=== PATIENT | male | born 1950 | race Caucasian/White ===

== ENCOUNTER 2017-02-11 09:50 | Emergency (ER) | payer OTHER ==
[~2017-02-11] VITALS: Ht 190.5 cm; Wt 91.8 kg
[2017-02-11 09:52] VITALS: TEMP 36.5; Ht 190.5 cm; Wt 91.8 kg
[2017-02-11] MEDS ORDERED: ASPIRIN 81 MG CHEW PO STA (10:23)
--- NOTE | 2017-02-11 10:33 | EMERGENCY ROOM VISIT NOTE ---
History Report prepared by Alicia: Cj Smith Under the Supervision of: Dr. Kurtis Calderón D.O. First contact with patient: 09:59 Chief Complaint: CHEST PAIN Stated Complaint: CHEST PAIN Nursing Triage Summary: When I sleep I have chest pain and dull aches on the left side x1 week. Right shoulder surgery on . History of Present Illness The patient is a 67 year old male who presents to the Emergency Room with complaints of intermittent chest pain beginning one week ago. His most recent episode of pain began at 2am last night. The patient describes the pain as a "dull ache" in the chest area that has worsened since he got shoulder surgery on February 06. Patient states that pain causes him to have to sleep in one position at night. Patient states the pain is relieved within 30 minutes of sitting up. Patient has an associated symptom of constipation. He was able to pass a bowel movement prior to arrival. Patient denies any arm pain, SOB, fever , sweating, nausea, vomiting, runny nose, abdominal pain, or painful urination. In addition, patient adds that he gets a "pinprick" pain in his chest when he goes jogging but said that that pain is different than the pain he is currently experiencing. Patient states he has always felt this pain when jogging for "a long time". Patient has not jogged since surgery. Patient has a history of mitral valve prolapse, and denies a history of diabetes, high cholesterol, or heart disease. Source of History: patient Onset: 1 week ago Position: chest Quality: ache (dull) Timing: intermittent Modifying Factors (Worsening): other (Laying down) Modifying Factors (Relieving): elevation (Sitting up) Associated Symptoms: + chest pain (Pin, prick when jogging), No fevers, No SOB, No nausea, No vomiting, No abdominal pain, No urinary symptoms Review of Systems See HPI for pertinent positives & negatives. A total of 10 systems reviewed and were otherwise negative. Past Medical & Surgical Medical Problems: (1) Mitral valve prolapse Family History No pertinent family medical history. Social History Smoking Status: Never Smoker Marital Status: Housing Status: lives with family Current/Historical Medications Scheduled Famotidine (Pepcid), 20 MG PO DAILY Scheduled PRN Ranitidine Hcl (Zantac), 150 MG PO DAILY PRN for acid reflux Allergies Coded Allergies: No Known Allergies (Unverified , 02/11/17) Physical Exam Vital Signs Date Time Temp Pulse Resp B/P (MAP) Pulse Ox O2 Delivery O2 Flow Rate FiO2 02/11/17 13:09 77 18 142/84 97 02/11/17 11:16 50 18 158/96 97 Room Air 02/11/17 10:18 53 02/11/17 09:52 36.5 57 18 149/97 98 Room Air Physical Exam GENERAL: Sitting up in bed, alert, well appearing, well nourished, no distress, non-toxic EYE EXAM: normal conjunctiva. OROPHARYNX: no exudate, no erythema, lips, buccal mucosa, and tongue normal and mucous membranes are moist NECK: supple, no nuchal rigidity, no adenopathy, non-tender LUNGS: Clear to auscultation. Normal chest wall mechanics HEART: no murmurs, S1 normal and S2 normal ABDOMEN: abdomen soft, non-tender, normo-active bowel sounds, no masses, no rebound or guarding. BACK: Back is symmetrical on inspection and there is no deformity, no midline tenderness, no CVA tenderness. SKIN: no rashes and no bruising UPPER EXTREMITIES: upper extremities are grossly normal. Good radial pulses bilaterally. LOWER EXTREMITIES: Calfs equal bilateral. No pitting edema. NEURO EXAM: Normal sensorium, cranial nerves II-XII grossly intact, normal speech, no gross weakness of arms, no gross weakness of legs. Medical Decision & Procedures ER Provider Diagnostic Interpretation: Radiology results as stated below per my review and the radiologist's interpretation: CHEST ONE VIEW PORTABLE CLINICAL HISTORY: Atypical chest pain COMPARISON STUDY: No previous studies for comparison. FINDINGS: The cardiac and mediastinal contours are normal. There is no evidence of focal pulmonary consolidation. There is no evidence of failure. No pleural effusions are visualized.[ IMPRESSION: No active disease in the chest. Electronically signed by: Tao Mckinney M.D. 02/11/2017 10:30 AM Laboratory Results 02/11/17 10:15 Red Blood Count 4.77, Mean Corpuscular Volume 85.7, Mean Corpuscular Hemoglobin 29.4, Mean Corpuscular Hemoglobin Concent 34.2, Mean Platelet Volume 10.5, Neutrophils (%) (Auto) 67.2, Lymphocytes (%) (Auto) 21.2, Monocytes (%) (Auto) 7.6, Eosinophils (%) (Auto) 3.4, Basophils (%) (Auto) 0.3, Neutrophils # (Auto) 5.32, Lymphocytes # (Auto) 1.68, Monocytes # (Auto) 0.60, Eosinophils # (Auto) 0.27, Basophils # (Auto) 0.02 02/11/17 10:15 Test 02/11/17 10:15 White Blood Count 7.91 K/uL (4.8-10.8) Red Blood Count 4.77 M/uL (4.7-6.1) Hemoglobin 14.0 g/dL (14.0-18.0) Hematocrit 40.9 % (42-52) Mean Corpuscular Volume 85.7 fL (80-100) Mean Corpuscular Hemoglobin 29.4 pg (25-34) Mean Corpuscular Hemoglobin Concent 34.2 g/dl (32-36) Platelet Count 174 K/uL (130-400) Mean Platelet Volume 10.5 fL (7.4-10.4) Neutrophils (%) (Auto) 67.2 % Lymphocytes (%) (Auto) 21.2 % Monocytes (%) (Auto) 7.6 % Eosinophils (%) (Auto) 3.4 % Basophils (%) (Auto) 0.3 % Neutrophils # (Auto) 5.32 K/uL (1.4-6.5) Lymphocytes # (Auto) 1.68 K/uL (1.2-3.4) Monocytes # (Auto) 0.60 K/uL (0.11-0.59) Eosinophils # (Auto) 0.27 K/uL (0-0.5) Basophils # (Auto) 0.02 K/uL (0-0.2) RDW Standard Deviation 40.8 fL (36.4-46.3) RDW Coefficient of Variation 13.0 % (11.5-14.5) Immature Granulocyte % (Auto) 0.3 % Immature Granulocyte # (Auto) 0.02 K/uL (0.00-0.02) Anion Gap 3.0 mmol/L (3-11) Est Creatinine Clear Calc Drug Dose 76.5 ml/min Estimated GFR () 78.4 Estimated GFR (Non- 67.6 BUN/Creatinine Ratio 16.3 (10-20) Calcium Level 8.8 mg/dl (8.5-10.1) Total Creatine Kinase 70 U/L (39-308) Creatine Kinase MB 0.9 ng/ml (0.5-3.6) Creatine Kinase MB Ratio 1.3 (0-3.0) Troponin I < 0.015 ng/ml (0-0.045) Laboratory results per my review. Medications Administered Medications (Trade) Dose Ordered Sig/Renee Route Start Time Stop Time Status Last Admin Dose Admin Aspirin (Aspirin Chew) 324 mg NOW STAT PO 02/11/17 10:23 02/11/17 10:24 DC 02/11/17 11:19 324 MG ECG Indication: chest pain Rate (beats per minute): 48 Rhythm: sinus bradycardia Findings: nonspecific-ST abn (Lateral), T-wave inversion (Inferior), other ( Normal axis. ) Comparison ECG Date: no prior available ED Course ED COURSE: Vital signs were reviewed and showed mild hypertension The patients medical record was reviewed The above diagnostic studies were performed and reviewed. ED treatments and interventions as stated above. 1012: The patient was evaluated in room C6. A complete history and physical examination was performed. 1023: Aspirin 324mg PO 1241: Upon reevaluation, the patient is resting comfortably.I discussed my findings with the patient and he understands and agrees with the treatment plan. Based on the patients age, coexisting illnesses, exam and lab findings the decision to treat as an outpatient was made. The patient remained stable while under my care. The patient appeared well at the time of discharge. Medical Decision Differential diagnoses includes but is not limited to acute coronary syndrome, myocardial infarction, pericarditis, pulmonary embolus, aortic dissection, pneumonia, pneumothorax, musculoskeletal, shingles, esophageal. Patient is a 67-year-old male who presents to ER for a chest pain over the left side of his chest. He notes this comes at night when he is sleeping and resolves when he sits up. It is not exertional. He has no arm pain or jaw pain. No shortness of breath. This has been going on for the past week. Last ended this morning at 2 AM. No swelling of legs, no coughing up of blood, no prolonged immobilization. He did have shoulder surgery as an ambulatory surgery. No risk factors to suggest PE. This history does not suggest this either as the pain is only present with laying down and resolves with sitting up. No recent upper respiratory infections to suggest pericarditis or myocarditis. EKG had nonspecific ST-T wave findings but was unchanged from his outpatient EKGs. Chest x-ray was unremarkable. No pneumonia. Troponin negative with pain that was present over 6 hours ago. Updated the patient in regards to his findings. Offered admission/observation after explaining findings. Patient declined and requested to follow-up with his PCP. Question if this could be GERD as it resolves when sitting up and presents with lying flat. Patient was discharged with a Pepcid. Discussed with Pt concerning signs and symptoms to watch out for. Pt was instructed to follow up with their PCP and discussed with the patient their option to return to the ED at anytime for persistent or worsening symptoms. The appropriate anticipatory guidance and out-patient management, including indications for return to the emergency department, were explained at length to the patient and understood. Medication Reconcilliation Current Medication List: was personally reviewed by me Blood Pressure Screening Patient's blood pressure: Elevated blood pressure Blood pressure disposition: Elevated BP felt to be situational Impression Primary Impression: Chest pain Scribe Attestation The scribe's documentation has been prepared under my direction and personally reviewed by me in its entirety. I confirm that the note above accurately reflects all work, treatment, procedures, and medical decision making performed by me. Departure Information Dispostion Home / Self-Care Prescriptions Famotidine (Pepcid) 20 Mg Tab 20 MG PO DAILY, #30 TAB Prov: Kurtis Calderón, DO 02/11/17 Referrals Demetrio Mills M.D. (PCP) Forms Call Back Authorization, HOME CARE DOCUMENTATION FORM, IMPORTANT VISIT INFORMATION Patient Instructions Chest Pain - [facility], My [facility] Additional Instructions Please follow up with your primary care doctor with in the next 24 hours. Any worsening of your symptoms, please return to the ED immediately. This includes any fevers greater than 100.4, worsening pain, chest pain, shortness breath, persistent nausea, vomiting, unable to eat or drink, or any other concerning signs or symptoms from your standpoint. Please take prescription as prescribed. Problem Qualifiers Primary Impression: Chest pain Chest pain type: unspecified Qualified Codes: R07.9 - Chest pain, unspecified
[2017-02-11 10:34] LABS: BASO % 0.3 %; BASO ABS # 0.02 K/uL (0-0.2); COMPLETE YES; EOS % 3.4 %; HEMATOCRIT 40.9 % (42-52); IG% 0.3 %; LYMPH % 21.2 %; LYMPH ABS # 1.68 K/uL (1.2-3.4); MEAN CELL VOLUME 85.7 fL (80-100); MEAN CORPUSCULAR HEMOGLOBIN 29.4 pg (25-34); MEAN CORPUSCULAR HGB CONC 34.2 g/dl (32-36); MEAN PLATELET VOLUME 10.5 fL (7.4-10.4); MONO % 7.6 %; NEUT % 67.2 %; PLATELET COUNT 174 K/uL (130-400); RED BLOOD COUNT 4.77 M/uL (4.7-6.1); WHITE BLOOD COUNT 7.91 K/uL (4.8-10.8)
[2017-02-11] MEDS ORDERED: RANI150T3 PO (10:46)
[2017-02-11 10:55] LABS: BLOOD UREA NITROGEN 18 mg/dl (7-18); BUN/CREATININE RATIO 16.3 (10-20); CALCIUM 8.8 mg/dl (8.5-10.1); CARBON DIOXIDE 31 mmol/L (21-32); CHLORIDE 103 mmol/L (98-107); CREATININE 1.12 mg/dl (0.60-1.40); GLUCOSE 80 mg/dl (70-99); POTASSIUM 4.1 mmol/L (3.5-5.1); SODIUM 137 mmol/L (136-145)
[2017-02-11 10:59] LABS: CKMB/CK RATIO 1.3 (0-3.0)
[2017-02-11] MEDS ORDERED: FAMO20TA11 PO (12:43)
[2017-02-11 13:09] VITALS: BP 142/84; PULSE 77; O2SAT 97
== END 2017-02-11 13:10 | disposition home or self-care (01) ==
LOC: C.EDB 09:51 → C.EDC 13:10
DX: R07.9 Chest pain, unspecified (principal); I34.1 Nonrheumatic mitral (valve) prolapse; R94.31 Abnormal electrocardiogram [ECG] [EKG]; R03.0 Elevated blood-pressure reading, without diagnosis of hypertension; K59.00 Constipation, unspecified

== ENCOUNTER 2022-04-30 19:10 | Observation (INO) ==
[2022-04-30] MEDS ORDERED: ONDANSETRON INJ 2 MG/ML 2 ML VIAL IV STA (20:50)
[2022-04-30] MEDS ORDERED: SODIUM CHLORIDE 0.9% 1000ML 1,000 ML IV ONE (20:50)
[2022-04-30 21:04] LABS: Hematocrit (blood only) 46.2 % (42.0-52.0); Hemoglobin 15.4 g/dl (14.0-18.0); Mean Corpuscular Hemoglobin 28.7 pg (25.0-34.0); Mean Corpuscular Hgb Conc 33.3 g/dL (32.0-36.0); Mean Corpuscular Volume 86.2 fL (80.0-100.0); Mean Platelet Volume 10.3 fL (9.4-12.4); Platelet Count 140 K/uL (130-400); RDW Coefficient of Variation 12.9 % (11.5-14.5); RDW Standard Deviation 40.6 fL (36.4-46.3); Red Blood Count 5.36 M/uL (4.70-6.10); White Blood Count 16.86 K/ul (4.8-10.8)
[2022-04-30 21:11] LABS: BUN Creatinine Ratio 17.9 (10-20); Calcium 9.3 mg/dl (8.5-10.1); Creatinine Clr Calc Pharmacy 68.2 ml/min; Est GFR (African American) 71.8 ml/min; Est GFR (Non-African American) 61.9 ml/min
[2022-04-30 21:13] LABS: Basophils # (auto) 0.04 K/uL (0-0.2); Basophils % (auto) 0.2 %; Eosinophils # (auto) 0.03 K/uL (0-0.50); Eosinophils % (auto) 0.2 %; Immature Granulocytes # (auto) 0.06 K/uL (0.01-0.20); Immature Granulocytes % (auto) 0.4 %; Lymphocytes # (auto) 0.19 K/uL (1.2-3.4); Lymphocytes % (auto) 1.1 %; Monocytes # (auto) 0.75 K/uL (0.11-0.59); Monocytes % (auto) 4.4 %; Neutrophils # (auto) 15.79 K/uL (1.40-6.50); Neutrophils % (auto) 93.7 %
[2022-04-30] MEDS ORDERED: OPTIRAY 350 100ml IV ONE (21:30)
[2022-04-30 22:11] LABS: Influenza A virus by PCR Negative (Neg); Influenza B virus by PCR Negative (Neg); RSV by PCR Negative (Neg); SARS CoV2 RNA(COVID-19) Ceph NEGATIVE (Negative)
[2022-04-30 22:38] LABS: Appearance Urine Clear (Clear); Bacteria Urine Automated Negative (Negative); Bilirubin Urine Negative (Negative); Blood Urine Negative (Negative); Cast Urine Automated 0 /lpf (0-5); Color Urine Yellow; Glucose Urine UA Negative (Negative); Ketones Urine 1+ (Negative); Leukocyte Esterase Urine Negative (Negative); Nitrite Urine Negative (Negative); Protein Urine 1+ (Negative); RBC Urine Automated 0-4 /hpf (0-4); Specific Gravity Urine 1.036 (1.000-1.030); Urobilinogen Urine Negative (Negative)
--- NOTE | 2022-04-30 22:38 | CT Scan Report ---
Exam(s): CT ABDOMEN + PELVIS With Contrast EXAM: CT Abdomen and Pelvis With Intravenous Contrast CLINICAL HISTORY: Reason for exam: nvd. TECHNIQUE: Axial computed tomography images of the abdomen and pelvis with intravenous contrast. CTDI is 6.8 mGy and DLP is 357.86 mGy-cm. Automated exposure control was utilized for the study. A dose lowering technique was utilized adhering to the principles of ALARA. CONTRAST: Contrast must be dictated COMPARISON: None. FINDINGS: Lung bases: Groundglass opacity within the right middle lobe compatible with pneumonitis. Posterior dependent atelectasis. Heart: Borderline cardiomegaly. Mediastinum: Tiny hiatal hernia. Otherwise unremarkable stomach. ABDOMEN: Liver: Unremarkable. No mass. Gallbladder and bile ducts: Unremarkable. No calcified stones. No ductal dilation. Pancreas: Unremarkable. No mass. No ductal dilation. Spleen: Unremarkable. No splenomegaly. Adrenals: Unremarkable. No mass. Kidneys and ureters: Multiple bilateral simple renal cyst, largest on the right seen in the upper pole measuring 2.9 cm in maximum dimension and largest on the left seen in the mid upper pole measuring 4.5 cm. Otherwise unremarkable bilateral kidneys. Stomach and bowel: Unremarkable. No obstruction. No mucosal thickening. PELVIS: Appendix: Normal appendix. Bladder: Unremarkable. No mass. Reproductive: Unremarkable as visualized. ABDOMEN and PELVIS: Intraperitoneal space: Unremarkable. No free air. No significant fluid collection. Bones/joints: Advanced degenerative disease throughout the lumbar spine, more severe at L2-L3 and L4-L5. There is fluid within the distal colon with mild thickening of the wall along the right ascending portion. Mild thickening of the wall of the proximal jejunum, a combination of findings which may indicate mild enterocolitis. No acute fracture. No dislocation. Soft tissues: Unremarkable. Vasculature: Mild atherosclerotic disease throughout the aorta with tortuosity. No abdominal aortic aneurysm. Lymph nodes: Unremarkable. No enlarged lymph nodes. IMPRESSION: 1. Cannot exclude mild enterocolitis. No acute appendicitis or bowel obstruction. 2. Nonspecific bilateral simple cyst, otherwise unremarkable abdominal viscera. 3. Tiny hiatal hernia otherwise unremarkable stomach. Electronically signed by: Martha Heaton MD 04/30/22 22:37 PM
[2022-04-30] MEDS ORDERED: METOCLOPRAMIDE HCL INJ 5 MG/ML 2 ML VIAL IV ONE (22:52)
[2022-04-30] MEDS ORDERED: diphenhydrAMINE 50 MG/ML VIAL IV STA (22:52)
[2022-04-30 23:17] LABS: Albumin Globulin Ratio 1.4 (0.9-2); Albumin Level 4.6 gm/dl (3.4-5.0); Bilirubin,Total 2.1 mg/dl (0.2-1.0); Globulin 3.2 gm/dl (2.5-4.0); Total Protein 7.8 gm/dl (6.0-8.3)
--- NOTE | 2022-04-30 23:44 | Emergency Department Note ---
History of Present Illness General Chief complaint: Vomiting Stated complaint: VOMITING,DIARRHEA Time Seen by Provider: 04/30/22 20:32 History of Present Illness Provider Complaint: + nausea and + vomiting Onset (ago): day(s) 1 Description of Vomiting: no bilious, no blood-streaked, no bloody or no coffee grounds Associated Abdominal Pain: Yes Location of pain: + diffuse Maximum Pain Intensity: 9 Current Pain Intensity: 9 Quality: + aching Pain Consistency: + intermittent Relieved By: + none Exacerbated By: + none Context: no foreign travel, no alcohol abuse, no trauma, no smoking or no marijuana use Associated symptoms: no chest pain, no cough, no fever/chills, no headaches or no shortness of breath Home Medications Medication Instructions Recorded Confirmed Type No Known Home Medications 04/30/22 04/30/22 History Allergies Allergy/AdvReac Type Severity Reaction Status Date / Time No Known Allergies Allergy Unverified 04/30/22 22:32 Past Med/Surg History Medical History GERD (gastroesophageal reflux disease) IBS (irritable bowel syndrome) Rupture of right Achilles tendon Social History Smoking Status: Never smoker Preferred Language: Taiwanese Feels Safe at Home: Yes Physical Exam Vital Signs: Vital Signs - 24 hr 04/30/22 19:25 04/30/22 20:26 04/30/22 20:30 Temperature 36.5 C Temperature Source Temporal Artery Sc an Pulse Rate 98 H 94 H Pulse Rate [Apical ] 94 H Pulse Rhythm [Apic al] Regular Pulse Strength [Ap ical] Normal Respiratory Rate 18 16 Respiratory Effort / Characteristics Non-Labored Sponta neous Non-Labored Sponta neous Respiratory Depth Normal Normal Respiratory Patter n Regular Blood Pressure 162/101 H Blood Pressure [Ri ght Arm] 164/103 H Blood Pressure Niesha n 121 Blood Pressure Niesha n [Right Arm] 123 Blood Pressure Pos ition Sitting Blood Pressure Pos ition [Right Arm] Sitting Pulse Oximetry 98 95 Oxygen Delivery Me thod Room Air Room Air Sepsis Recent Feve r Within 48 Hours No Sepsis New/Unexpla ined Change in Men joshua Status No Sepsis Action Take n by Nursing No Action Required 04/30/22 22:59 Temperature Temperature Source Pulse Rate Pulse Rate [Apical ] 97 H Pulse Rhythm [Apic al] Regular Pulse Strength [Ap ical] Respiratory Rate 18 Respiratory Effort / Characteristics Non-Labored Respiratory Depth Normal Respiratory Patter n Blood Pressure Blood Pressure [Ri ght Arm] 149/79 H Blood Pressure Niesha n Blood Pressure Niesha n [Right Arm] 102 Blood Pressure Pos ition Blood Pressure Pos ition [Right Arm] Pulse Oximetry 93 Oxygen Delivery Me thod Room Air Sepsis Recent Feve r Within 48 Hours Sepsis New/Unexpla ined Change in Men joshua Status Sepsis Action Take n by Nursing Physical Exam: Physical Exam HENT: Exam performed. - Head: Normocephalic and atraumatic. - Mouth/Throat: The oropharynx is clear and moist. No trismus in the jaw. No dental abscesses or uvula swelling. No oropharyngeal exudate or tonsillar abscesses. EYES: Conjunctivae and EOM are normal. Pupils are equal, round, and reactive to light. Right eye exhibits no discharge. Left eye exhibits no discharge. No scleral icterus. CV: Normal rate, regular rhythm, normal heart sounds and intact distal pulses. There is no peripheral edema. Palpable radial pulses bue. PULM/CHEST: Effort normal and breath sounds normal. No respiratory distress. No stridor. He has no wheezes. He has no rales. ABD: The abdomen is soft. Bowel sounds are normal. He has no distension. There is no tenderness. There is no rebound, no guarding NEURO: Motor and sensation grossly intact. Course Course 2031: The patient was evaluated in room C5. A complete history and physical exam was performed Cardiac monitoring: An order was placed for continuous cardiac monitoring. The monitor shows a rate of 90 with sinus rhythm interpreted by me 2346: Vital signs stable. Labs show leukocytosis of 16.86. Total bilirubin 2.1. Urinalysis and COVID swab negative. CT of the abdomen pelvis enterocolitis shows no acute appendicitis or bowel obstruction. I went and reassessed the patient patient states he feels too weak and nauseous to be discharged home. Patient be [facility]ist team Dr. Reyes notified Administered Medications Discontinued Medications Diphenhydramine HCl (Diphenhydramine 50 Mg/Ml Vial) 25 mg IV NOW STA Stop: 04/30/22 22:53 Last Admin: 04/30/22 23:00 Dose: 25 mg Documented By: MONE Sodium Chloride (Nss 1000ml) 1,000 mls @ 999 mls/hr IV .Q1H1M ONE Stop: 04/30/22 21:50 Last Infusion: 04/30/22 22:09 Dose: 0 mls/hr Documented By: Admin: 04/30/22 21:05 Dose: 999 mls/hr Documented By: RADHA Ioversol (Optiray 350 100ml) 82 ml IV ONCE ONE Stop: 04/30/22 21:31 Last Admin: 04/30/22 21:30 Dose: 82 ml Documented By: ELODIA Metoclopramide HCl (Metoclopramide Hcl Inj 5 Mg/Ml 2 Ml Vial) 5 mg IV ONE ONE Stop: 04/30/22 22:53 Last Admin: 04/30/22 23:00 Dose: 5 mg Documented By: MONE Ondansetron HCl (Ondansetron Inj 2 Mg/Ml 2 Ml Vial) 4 mg IV NOW STA Stop: 04/30/22 20:51 Last Admin: 04/30/22 21:05 Dose: 4 mg Documented By: RADHA Medical Decision Making Laboratory Data Attestation: I reviewed the patient's lab results. 04/30/22 20:30 04/30/22 20:30 Lab Results 04/30/22 04/30/22 04/30/22 Range/Units 20:30 20:30 21:09 WBC 16.86 H (4.8-10.8) K/ul RBC 5.36 (4.70-6.10) M/uL Hgb 15.4 (14.0-18.0) g/dl Hct 46.2 (42.0-52.0) % MCV 86.2 (80.0-100.0) fL MCH 28.7 (25.0-34.0) pg MCHC 33.3 (32.0-36.0) g/dL RDW Std Deviation 40.6 (36.4-46.3) fL RDW Coeff of Mindy 12.9 (11.5-14.5) % Plt Count 140 (130-400) K/uL MPV 10.3 (9.4-12.4) fL Immature Gran % (Auto) 0.4 % Neut % (Auto) 93.7 % Lymph % (Auto) 1.1 % [place] % (Auto) 4.4 % Eos % (Auto) 0.2 % Baso % (Auto) 0.2 % Neut # (Auto) 15.79 H (1.40-6.50) K/uL Lymph # (Auto) 0.19 L (1.2-3.4) K/uL [place] # (Auto) 0.75 H (0.11-0.59) K/uL Eos # (Auto) 0.03 (0-0.50) K/uL Baso # (Auto) 0.04 (0-0.2) K/uL Immature Gran # (Auto) 0.06 (0.01-0.20) K/uL Sodium 137 (136-145) mmol/L Potassium 4.0 (3.5-5.1) mmol/L Chloride 103 (98-107) mmol/L Carbon Dioxide 27 (21-32) mmol/L Anion Gap 7 (3-11) BUN 21 (6-23) mg/dl Creatinine 1.17 (0.6-1.4) mg/dl Est Cr Clr Drug Dosing 68.2 ml/min Est GFR ( Amer) 71.8 ml/min Est GFR (Non-Af Amer) 61.9 ml/min BUN/Creatinine Ratio 17.9 (10-20) Glucose 146 H (70-99(Fasting)) mg/dl Calcium 9.3 (8.5-10.1) mg/dl Total Bilirubin 2.1 H (0.2-1.0) mg/dl AST 28 (13-39) U/L ALT 20 (7-52) U/L Alkaline Phosphatase 84 (34-104) U/L Total Protein 7.8 (6.0-8.3) gm/dl Albumin 4.6 (3.4-5.0) gm/dl Globulin 3.2 (2.5-4.0) gm/dl Albumin/Globulin Ratio 1.4 (0.9-2) Lipase 12 (11-82) U/L Urine Color Urine Appearance (Clear) Urine pH (4.5-7.5) Ur Specific [place] (1.000-1.030) Urine Protein (Negative) Urine Glucose (UA) (Negative) Urine Ketones (Negative) Urine Blood (Negative) Urine Nitrite (Negative) Urine Bilirubin (Negative) Urine Urobilinogen (Negative) Ur Leukocyte Esterase (Negative) Urine WBC (Auto) (0-5) /hpf Urine RBC (Auto) (0-4) /hpf U Hyaline Cast (Auto) (0-5) /lpf U Epithel Cells (Auto) (0-5) /lpf Urine Bacteria (Auto) (Negative) SARS-CoV-2 (PCR) NEGATIVE (Negative) Influenza Type A (PCR) Negative (Neg) Influenza Type B (PCR) Negative (Neg) RSV (RT-PCR) Negative (Neg) 04/30/22 Range/Units 21:55 WBC (4.8-10.8) K/ul RBC (4.70-6.10) M/uL Hgb (14.0-18.0) g/dl Hct (42.0-52.0) % MCV (80.0-100.0) fL MCH (25.0-34.0) pg MCHC (32.0-36.0) g/dL RDW Std Deviation (36.4-46.3) fL RDW Coeff of Mindy (11.5-14.5) % Plt Count (130-400) K/uL MPV (9.4-12.4) fL Immature Gran % (Auto) % Neut % (Auto) % Lymph % (Auto) % [place] % (Auto) % Eos % (Auto) % Baso % (Auto) % Neut # (Auto) (1.40-6.50) K/uL Lymph # (Auto) (1.2-3.4) K/uL [place] # (Auto) (0.11-0.59) K/uL Eos # (Auto) (0-0.50) K/uL Baso # (Auto) (0-0.2) K/uL Immature Gran # (Auto) (0.01-0.20) K/uL Sodium (136-145) mmol/L Potassium (3.5-5.1) mmol/L Chloride (98-107) mmol/L Carbon Dioxide (21-32) mmol/L Anion Gap (3-11) BUN (6-23) mg/dl Creatinine (0.6-1.4) mg/dl Est Cr Clr Drug Dosing ml/min Est GFR ( Amer) ml/min Est GFR (Non-Af Amer) ml/min BUN/Creatinine Ratio (10-20) Glucose (70-99(Fasting)) mg/dl Calcium (8.5-10.1) mg/dl Total Bilirubin (0.2-1.0) mg/dl AST (13-39) U/L ALT (7-52) U/L Alkaline Phosphatase (34-104) U/L Total Protein (6.0-8.3) gm/dl Albumin (3.4-5.0) gm/dl Globulin (2.5-4.0) gm/dl Albumin/Globulin Ratio (0.9-2) Lipase (11-82) U/L Urine Color Yellow Urine Appearance Clear (Clear) Urine pH 7.0 (4.5-7.5) Ur Specific [place] 1.036 H (1.000-1.030) Urine Protein 1+ H (Negative) Urine Glucose (UA) Negative (Negative) Urine Ketones 1+ H (Negative) Urine Blood Negative (Negative) Urine Nitrite Negative (Negative) Urine Bilirubin Negative (Negative) Urine Urobilinogen Negative (Negative) Ur Leukocyte Esterase Negative (Negative) Urine WBC (Auto) 1-5 (0-5) /hpf Urine RBC (Auto) 0-4 (0-4) /hpf U Hyaline Cast (Auto) 0 (0-5) /lpf U Epithel Cells (Auto) 10-20 H (0-5) /lpf Urine Bacteria (Auto) Negative (Negative) SARS-CoV-2 (PCR) (Negative) Influenza Type A (PCR) (Neg) Influenza Type B (PCR) (Neg) RSV (RT-PCR) (Neg) Imaging Data Radiologist's Impression: Abdomen/Pelvis CT 04/30/22 20:50 Exam(s): CT ABDOMEN + PELVIS With Contrast EXAM: CT Abdomen and Pelvis With Intravenous Contrast CLINICAL HISTORY: Reason for exam: nvd. TECHNIQUE: Axial computed tomography images of the abdomen and pelvis with intravenous contrast. CTDI is 6.8 mGy and DLP is 357.86 mGy-cm. Automated exposure control was utilized for the study. A dose lowering technique was utilized adhering to the principles of ALARA. CONTRAST: Contrast must be dictated COMPARISON: None. FINDINGS: Lung bases: Groundglass opacity within the right middle lobe compatible with pneumonitis. Posterior dependent atelectasis. Heart: Borderline cardiomegaly. Mediastinum: Tiny hiatal hernia. Otherwise unremarkable stomach. ABDOMEN: Liver: Unremarkable. No mass. Gallbladder and bile ducts: Unremarkable. No calcified stones. No ductal dilation. Pancreas: Unremarkable. No mass. No ductal dilation. Spleen: Unremarkable. No splenomegaly. Adrenals: Unremarkable. No mass. Kidneys and ureters: Multiple bilateral simple renal cyst, largest on the right seen in the upper pole measuring 2.9 cm in maximum dimension and largest on the left seen in the mid upper pole measuring 4.5 cm. Otherwise unremarkable bilateral kidneys. Stomach and bowel: Unremarkable. No obstruction. No mucosal thickening. PELVIS: Appendix: Normal appendix. Bladder: Unremarkable. No mass. Reproductive: Unremarkable as visualized. ABDOMEN and PELVIS: Intraperitoneal space: Unremarkable. No free air. No significant fluid collection. Bones/joints: Advanced degenerative disease throughout the lumbar spine, more severe at L2-L3 and L4-L5. There is fluid within the distal colon with mild thickening of the wall along the right ascending portion. Mild thickening of the wall of the proximal jejunum, a combination of findings which may indicate mild enterocolitis. No acute fracture. No dislocation. Soft tissues: Unremarkable. Vasculature: Mild atherosclerotic disease throughout the aorta with tortuosity. No abdominal aortic aneurysm. Lymph nodes: Unremarkable. No enlarged lymph nodes. IMPRESSION: 1. Cannot exclude mild enterocolitis. No acute appendicitis or bowel obstruction. 2. Nonspecific bilateral simple cyst, otherwise unremarkable abdominal viscera. 3. Tiny hiatal hernia otherwise unremarkable stomach. Electronically signed by: Martha Heaton MD 04/30/22 22:37 PM [facility] Narrative 2031: The patient was evaluated in room C5. A complete history and physical exam was performed Cardiac monitoring: An order was placed for continuous cardiac monitoring. The monitor shows a rate of 90 with sinus rhythm interpreted by me 2346: Vital signs stable. Labs show leukocytosis of 16.86. Total bilirubin 2.1. Urinalysis and COVID swab negative. CT of the abdomen pelvis enterocolitis shows no acute appendicitis or bowel obstruction. I went and reassessed the patient patient states he feels too weak and nauseous to be discharged home. Patient be admitted to the [facility] hospitalist team Dr. Reyes notified Impression & Plan Intractable nausea and vomiting Discharge Plan Visit Data Chief Complaint: Vomiting Stated Complaint: VOMITING,DIARRHEA ED Provider: Baldemar Gorman Discharge Problem: Intractable nausea and vomiting Patient Disposition: Being Evaluated by Hospitalist Forms Stand Alone Forms: My [facility] Prescriptions Prescriptions: No Action No Known Home Medications Referrals Referrals: Demetrio Mills MD [Primary Care Provider] -
[2022-05-01] MEDS ORDERED: ACETAMINOPHEN 325 MG TAB PO PRN (03:05)
[2022-05-01] MEDS: D5W AND NSS 1,000 ML IV SCH ×2 (03:17→12:18)
--- NOTE | 2022-05-01 04:34 | History and Physical Report ---
DATE OF ADMISSION: 05/01/2022. CHIEF COMPLAINT: Nausea, vomiting, diarrhea. HISTORY OF PRESENT ILLNESS: A 72-year-old male with past medical history significant for nonallergic rhinitis, irritable bowel syndrome, GERD, chronic kidney disease stage III, history of APCs, VPCs, history of sinus bradycardia asymptomatic, history of brief paroxysmal AT, history of mitral valve prolapse and moderate left atrial enlargement, Presents with nausea, vomiting and diarrhea of 1-day duration, several episodes of vomiting, several episodes of loose watery diarrhea. He was tachycardic in the ER when he came in. White count is 16. CT of abdomen and pelvis is showing mild enterocolitis. The patient says just now nausea is slightly improved. He wants to try to drink water. Denies any abdominal pain. Denies any fevers. Denies any chest pain, no shortness of breath. Has some mild headache. No blurred visions, no earache. He always has some runny nose, has some sore throat from vomiting. Normal bladder movements. No swelling in the legs. Hemodynamics are stable.denies any out side food or any sickness in the family ALLERGIES: No known drug allergies. PAST MEDICAL HISTORY: As mentioned above. PAST SURGICAL HISTORY: Colonoscopies, EGD with endoscopy, tonsillectomy. MEDICATIONS: Not taking any medication currently. FAMILY HISTORY: Significant for sister has allergies; father has lung cancer; mother has lung cancer; father has colon cancer; maternal grandfather has colon cancer; maternal grandmother has diabetes; mother has heart disorder. SOCIAL HISTORY: . No smoking. Alcohol weekly. No drug use. REVIEW OF SYSTEMS: As per HPI. Rest of review of systems is negative. PHYSICAL EXAMINATION: GENERAL: The patient is of moderate build, not in acute distress. VITAL SIGNS: Temperature 36.5, pulse 113, respiratory rate 18, blood pressure 128/79, oxygen 92% on room air. HEENT: Pupils equal, round and reactive to light. Oral mucosa moist. NECK: No JVD, no neck masses. CARDIOVASCULAR: S1 and S2 heard. Regular rate and rhythm. No murmur, no gallop. RESPIRATORY SYSTEM: Normal AP diameter. No accessory muscle use. No wheezing, no crackles. ABDOMEN: Soft, bowel sounds present, nontender, no distention. CENTRAL NERVOUS SYSTEM: Cranial nerves II through XII are grossly intact, nonfocal. EXTREMITIES: No edema, no erythema. LABORATORY DATA: WBC 16, hemoglobin 15.4, hematocrit 46.2, platelets 140. Sodium 137, potassium 4, chloride 103, bicarbonate 27, BUN 21, creatinine 1.1, serum glucose 146, calcium 9.3, total bilirubin 2.1, AST 28, ALT 20, alkaline phosphatase 84, lipase 12. Urinalysis, +1 protein, +1 ketones. SARS-CoV-2 PCR negative. Influenza A and B PCR negative. RSV PCR negative. IMAGING DATA: CT of abdomen and pelvis with IV contrast shows cannot exclude mild enterocolitis. No acute appendicitis or bowel obstruction. Nonspecific bilateral simple cysts, otherwise unremarkable abdominal viscera. ASSESSMENT AND PLAN: This is a 72-year-old male who presents with nausea, vomiting, and diarrhea 1. Nausea, vomiting, and diarrhea starting of 1-day duration. CT of abdomen and pelvis is showing possible enterocolitis. Will check the stool sample. Will keep him n.p.o. for now. IV fluids, IV antiemetics.Follow labs. Monitor in the hospital. 2. History of chronic kidney disease stage III: Presents with creatinine of 1.1, will follow the labs. 3. Leukocytosis: Follow the repeat labs. 4. Deep venous thrombosis prophylaxis: Sequential compression devices for now. DISPOSITION: Closely monitor in the hospital. Expect to discharge home and follow with family doctor. Job ID: [id number] [facility]IMIN[facility] INSANEBrittanie
[2022-05-01] MEDS: ONDANSETRON INJ 2 MG/ML 2 ML VIAL IV PRN ×2 (07:14→14:15)
[2022-05-01 07:28] LABS: Mean Corpuscular Hemoglobin 28.5 pg (25.0-34.0); Mean Corpuscular Hgb Conc 33.3 g/dL (32.0-36.0); Mean Corpuscular Volume 85.5 fL (80.0-100.0); Mean Platelet Volume 10.5 fL (9.4-12.4); Platelet Count 145 K/uL (130-400); RDW Coefficient of Variation 13.1 % (11.5-14.5); RDW Standard Deviation 40.9 fL (36.4-46.3); Red Blood Count 4.56 M/uL (4.70-6.10); White Blood Count 18.35 K/ul (4.8-10.8)
[2022-05-01 07:34] LABS: BUN Creatinine Ratio 15.6 (10-20); Calcium 8.5 mg/dl (8.5-10.1); Creatinine Clr Calc Pharmacy 49.9 ml/min; Est GFR (African American) 49.2 ml/min; Est GFR (Non-African American) 42.4 ml/min; Magnesium 1.6 mg/dl (1.7-2.4); Potassium 4.7 mmol/L (3.5-5.1)
[2022-05-01 08:17] LABS: Basophils # (auto) 0.03 K/uL (0-0.2); Basophils % (auto) 0.2 %; Immature Granulocytes # (auto) 0.06 K/uL (0.01-0.20); Immature Granulocytes % (auto) 0.3 %; Lymphocytes # (auto) 0.24 K/uL (1.2-3.4); Lymphocytes % (auto) 1.3 %; Monocytes # (auto) 0.89 K/uL (0.11-0.59); Monocytes % (auto) 4.9 %; Neutrophils # (auto) 17.13 K/uL (1.40-6.50); Neutrophils % (auto) 93.3 %
[2022-05-01] MEDS: MAGNESIUM SULFATE / D5W 1 GM/100 ML BAG IV SCH ×2 (09:58→12:16)
--- NOTE | 2022-05-01 14:26 | Hospitalist Progress Note ---
Date of Service May 01, 2022 Assessment & Plan (1) Intractable nausea and vomiting: (2) Enterocolitis: (3) Acute kidney injury superimposed on chronic kidney disease: (4) Hyperglycemia: Plan This is a 72-year-old male who has significant past medical history of CKD stage IIIa, IBS, symptomatic PVCs who presented to ED secondary to nausea, vomiting and diarrhea of 1 day duration. In ED patient met SIRS criteria secondary to tachycardia and leukocytosis. CT abdomen pelvis concerning for mild enterocolitis. Intractable nausea vomiting Enterocolitis Patient admitted to medical Continue conservative treatment, clear liquid diet, IV fluid Transition IV fluids to LR due to hyperglycemia Awaiting stool sample however patient has yet to be able to provide Nausea slightly improved Leukocytosis increased from 16 K to 18 K, possibly reactive Obtain procalcitonin and repeat LFTs If Pro-Luis elevated, will repeat in AM for consideration of antibiotic use if uptrending. Acute on chronic CKD stage III Baseline creatinine 1.3 Creatinine 1.6 today Likely prerenal in setting of dehydration we will continue IV fluid Hyperglycemia May be iatrogenic in setting of dextrose fluid Obtain A1c Hypomagnesemia Replace Hyperbilirubinemia Total bilirubin 2.1, repeat LFTs and obtain direct bili No further abdominal pain, CT abdomen pelvis revealed remarkable gallbladder and liver DVT prophylaxis: SCD Dispo: Admit to medical, await stool culture if able to obtain, continue conservative treatment, likely DC to home when medically stable PCP:Gene FULL CODE Patient was seen and examined in collaboration with, Dr. 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 Admission and Anticipated Discharge Date Admission Date: May 01, 2022 Supervising Physician Co-Signing Physician Notes Patient seen and examined at bedside as a follow-up of intractable nausea and vomiting and enterocolitis and acute on chronic kidney injury CKD stage III. Patient reports improving nausea, vomiting, diarrhea. Advance diet as tolerated. Likely could be a viral gastroenteritis. Pro-Luis elevated but patient afebrile and vitals getting better without antibiotic. Elevated Pro-Luis likely could be due to acute kidney injury. We will get repeat Pro-Luis in a.m. to see whether it is downtrending or uptrending. Continue with IV fluids for acute kidney injury. Advance diet as tolerated. Monitor replete electrolytes. On examination: Patient on room air, no BLE edema, slightly tachycardic, lungs and abdomen examination WNL. Rest of the examination as above. I have seen and examined the patient and have discussed the case with the provider above. I agree with the assessment and plan as stated. Subjective Patient was seen and examined in room 354. Follow-up enterocolitis. Patient continues to feel ill. He complains of low-grade fever this morning. He still feels nauseous but no further vomiting or diarrhea. Stool sample has not yet been collected due to no further bowel movement. Overall poor appetite. Denies chest pain, shortness of breath, URI symptoms. Review of Systems Review of Systems: All systems reviewed & are unremarkable except as noted in HPI & below Physical Exam Physical Exam: Gen: Acutely ill-appearing male, lying in left lateral position, WD/WN, NAD, A&O x3 HEENT: Normocephalic, atraumatic, conjunctivae moist, sclerae anicteric, mucous membranes moist. Lung: Clear to Auscultation bilaterally, no wheezes/rales/rhonchi Heart: Regular rate, regular rhythm, no murmurs, rubs, or gallops Abdomen: Soft, NT, ND +BS x 4 Extremities: No edema Skin: Warm, no rash, negative turgor. Results & Data Results & Data ([facility]) Vital Signs (Past 12 Hours) Vital Signs Temp Pulse Pulse Pulse Resp BP BP 05/01/22 07:09 37.8 C H 98 H 18 102/60 05/01/22 03:00 37.5 C 100 H 18 132/74 05/01/22 02:25 106 H 18 128/79 Pulse Ox O2 Del Method 05/01/22 07:09 98 Room Air 05/01/22 03:00 94 Room Air 05/01/22 02:25 93 Room Air Laboratory Results Short CBC 04/30/22 05/01/22 Range/Units 20:30 06:57 WBC 16.86 H 18.35 H (4.8-10.8) K/ul Hgb 15.4 13.0 L (14.0-18.0) g/dl Hct 46.2 39.0 L (42.0-52.0) % Plt Count 140 145 (130-400) K/uL BMP 04/30/22 05/01/22 20:30 06:57 Sodium 137 138 Potassium 4.0 4.7 Chloride 103 105 Carbon Dioxide 27 27 BUN 21 25 H Creatinine 1.17 1.60 H D Glucose 146 H 178 H Calcium 9.3 8.5 Liver Function 04/30/22 Range/Units 20:30 Total Bilirubin 2.1 H (0.2-1.0) mg/dl AST 28 (13-39) U/L ALT 20 (7-52) U/L Alkaline Phosphatase 84 (34-104) U/L Albumin 4.6 (3.4-5.0) gm/dl Urine 04/30/22 Range/Units 21:55 Urine Color Yellow Urine Appearance Clear (Clear) Urine pH 7.0 (4.5-7.5) Ur Specific [place] 1.036 H (1.000-1.030) Urine Protein 1+ H (Negative) Urine Glucose (UA) Negative (Negative) Diagnostic Findings Abdomen/Pelvis CT 04/30/22 20:50 Exam(s): CT ABDOMEN + PELVIS With Contrast EXAM: CT Abdomen and Pelvis With Intravenous Contrast CLINICAL HISTORY: Reason for exam: nvd. TECHNIQUE: Axial computed tomography images of the abdomen and pelvis with intravenous contrast. CTDI is 6.8 mGy and DLP is 357.86 mGy-cm. Automated exposure control was utilized for the study. A dose lowering technique was utilized adhering to the principles of ALARA. CONTRAST: Contrast must be dictated COMPARISON: None. FINDINGS: Lung bases: Groundglass opacity within the right middle lobe compatible with pneumonitis. Posterior dependent atelectasis. Heart: Borderline cardiomegaly. Mediastinum: Tiny hiatal hernia. Otherwise unremarkable stomach. ABDOMEN: Liver: Unremarkable. No mass. Gallbladder and bile ducts: Unremarkable. No calcified stones. No ductal dilation. Pancreas: Unremarkable. No mass. No ductal dilation. Spleen: Unremarkable. No splenomegaly. Adrenals: Unremarkable. No mass. Kidneys and ureters: Multiple bilateral simple renal cyst, largest on the right seen in the upper pole measuring 2.9 cm in maximum dimension and largest on the left seen in the mid upper pole measuring 4.5 cm. Otherwise unremarkable bilateral kidneys. Stomach and bowel: Unremarkable. No obstruction. No mucosal thickening. PELVIS: Appendix: Normal appendix. Bladder: Unremarkable. No mass. Reproductive: Unremarkable as visualized. ABDOMEN and PELVIS: Intraperitoneal space: Unremarkable. No free air. No significant fluid collection. Bones/joints: Advanced degenerative disease throughout the lumbar spine, more severe at L2-L3 and L4-L5. There is fluid within the distal colon with mild thickening of the wall along the right ascending portion. Mild thickening of the wall of the proximal jejunum, a combination of findings which may indicate mild enterocolitis. No acute fracture. No dislocation. Soft tissues: Unremarkable. Vasculature: Mild atherosclerotic disease throughout the aorta with tortuosity. No abdominal aortic aneurysm. Lymph nodes: Unremarkable. No enlarged lymph nodes. IMPRESSION: 1. Cannot exclude mild enterocolitis. No acute appendicitis or bowel obstruction. 2. Nonspecific bilateral simple cyst, otherwise unremarkable abdominal viscera. 3. Tiny hiatal hernia otherwise unremarkable stomach. Electronically signed by: Martha Heaton MD 04/30/22 22:37 PM Medications Administered Current Inpatient Medications Acetaminophen (Acetaminophen 325 Mg Tab) 650 mg PO Q4H PRN PRN Reason: pain/fever Stop: 05/31/22 03:04 Dextrose/Sodium Chloride (D5w And Nss) 1,000 mls @ 125 mls/hr IV .Q8H BERE Stop: 05/31/22 03:04 Last Admin: 05/01/22 12:18 Dose: 125 mls/hr Ondansetron HCl (Ondansetron Inj 2 Mg/Ml 2 Ml Vial) 4 mg IV Q6H PRN PRN Reason: Nausea Stop: 05/31/22 03:04 Last Admin: 05/01/22 14:15 Dose: 4 mg
[2022-05-01 15:24] LABS: Albumin Level 3.7 gm/dl (3.4-5.0); Bilirubin Direct 0.3 mg/dl (0-0.2); Bilirubin,Total 1.8 mg/dl (0.2-1.0); Total Protein 6.3 gm/dl (6.0-8.3)
[2022-05-01] MEDS: LACTATED RINGER'S 1,000 ML IV SCH (16:00)
[2022-05-02] MEDS: LACTATED RINGER'S 1,000 ML IV SCH (04:36)
[2022-05-02 08:26] LABS: Basophils # (auto) 0.02 K/uL (0-0.2); Basophils % (auto) 0.2 %; Eosinophils # (auto) 0.04 K/uL (0-0.50); Eosinophils % (auto) 0.4 %; Hematocrit (blood only) 34.7 % (42.0-52.0); Hemoglobin 11.7 g/dl (14.0-18.0); Immature Granulocytes # (auto) 0.03 K/uL (0.01-0.20); Immature Granulocytes % (auto) 0.3 %; Lymphocytes # (auto) 1.02 K/uL (1.2-3.4); Lymphocytes % (auto) 11.1 %; Mean Corpuscular Hemoglobin 28.7 pg (25.0-34.0); Mean Corpuscular Hgb Conc 33.7 g/dL (32.0-36.0); Mean Corpuscular Volume 85.3 fL (80.0-100.0); Mean Platelet Volume 10.8 fL (9.4-12.4); Monocytes % (auto) 14.2 %; Neutrophils # (auto) 6.74 K/uL (1.40-6.50); Neutrophils % (auto) 73.8 %; Platelet Count 113 K/uL (130-400); RDW Coefficient of Variation 13.2 % (11.5-14.5); RDW Standard Deviation 40.9 fL (36.4-46.3); Red Blood Count 4.07 M/uL (4.70-6.10); White Blood Count 9.15 K/ul (4.8-10.8)
[2022-05-02 08:37] LABS: Albumin Globulin Ratio 1.4 (0.9-2); Albumin Level 3.3 gm/dl (3.4-5.0); BUN Creatinine Ratio 15.8 (10-20); Bilirubin,Total 1.9 mg/dl (0.2-1.0); Calcium 8.2 mg/dl (8.5-10.1); Creatinine Clr Calc Pharmacy 57.4 ml/min; Est GFR (African American) 58.3 ml/min; Est GFR (Non-African American) 50.3 ml/min; Globulin 2.4 gm/dl (2.5-4.0); Magnesium 1.8 mg/dl (1.7-2.4); Potassium 3.9 mmol/L (3.5-5.1); Total Protein 5.7 gm/dl (6.0-8.3)
[2022-05-02 10:01] LABS: Estimated Average Glucose 114 mg/dl; Hemoglobin A1C 5.6 % (4.5-5.6)
--- NOTE | 2022-05-02 10:44 | Discharge Summary ---
Discharge Summary Date of Service May 02, 2022 Notes For Next Care Provider Patient was admitted for nausea, vomiting and diarrhea. His symptoms are likely as a result of viral gastroenteritis and enterocolitis as his symptoms resolved with supportive care with IV fluids and antiemetics. Upon discharged stool was positive for norovirus. He did have mild TRU duration and hypomagnesemia. This was repleted and treated with IV fluid. On day of discharge he did have mild decrease in hemoglobin and hematocrit 11.7 and 34.7 as well as platelets 113. I feel this is likely secondary to hemodilution. Recommend repeating CBC at follow-up. Medication Changes From Visit No medication changes Admission HPI Per Admitting Provider HISTORY OF PRESENT ILLNESS: A 72-year-old male with past medical history significant for nonallergic rhinitis, irritable bowel syndrome, GERD, chronic kidney disease stage III, history of APCs, VPCs, history of sinus bradycardia a symptomatic, history of brief paroxysmal AT, history of mitral valve prolapse and moderate left atrial enlargement, Presents with nausea, vomiting and diarrhea of 1-day duration, several episodes of vomiting, several episodes of loose watery diarrhea. He was tachycardic in the ER when he came in. White count is 16. CT of abdomen and pelvis is showing mild enterocolitis. The patient says just now nausea is slightly improved. He wants to try to drink water. Denies any abdominal pain. Denies any fevers. Denies any chest pain, no shortness of breath. Has some mild headache. No blurred visions, no earache. He always has some runny nose, has some sore throat from vomiting. Normal bladder movements. No swelling in the legs. Hemodynamics are stable.denies any out side food or any sickness in the family Admission Exam Per Admitting Provider PHYSICAL EXAMINATION: GENERAL: The patient is of moderate build, not in acute distress. VITAL SIGNS: Temperature 36.5, pulse 113, respiratory rate 18, blood pressure 128/79, oxygen 92% on room air. HEENT: Pupils equal, round and reactive to light. Oral mucosa moist. NECK: No JVD, no neck masses. CARDIOVASCULAR: S1 and S2 heard. Regular rate and rhythm. No murmur, no gallop. RESPIRATORY SYSTEM: Normal AP diameter. No accessory muscle use. No wheezing, no crackles. ABDOMEN: Soft, bowel sounds present, nontender, no distention. CENTRAL NERVOUS SYSTEM: Cranial nerves II through XII are grossly intact, nonfocal. EXTREMITIES: No edema, no erythema. Principal Dx & Hospital Course #1 = Principal Diagnosis (1) Intractable nausea and vomiting: (2) Enterocolitis: (3) Acute kidney injury superimposed on chronic kidney disease: (4) Hyperglycemia: Plan This is a 72-year-old male who has significant past medical history of CKD stage IIIa, IBS, symptomatic PVCs who presented to ED secondary to nausea, vomiting and diarrhea of 1 day duration. In ED patient met SIRS criteria secondary to tachycardia and leukocytosis. CT abdomen pelvis concerning for mild enterocolitis. Patient was treated with supportive care, clear liquid diet, IV fluids and antiemetics. On day 1 of hospital stay he was found to be hyperglycemic which is felt to be iatrogenic due to administration of D5 normal saline. IV fluids were switched to lactated Ringer's and this has since resolved. He did not require any IV antibiotics. Initially admitted with leukocytosis at 16,000 and peaked at 18,000. On day of discharge his white count normalized to 9000. He did have a decrease in H&H. On admission his hemoglobin was 15 and at discharge was 11.7. Feel this is likely secondary to hemodilution. On admission he did have mild elevation in creatinine at 1.6. With IV fluids his creatinine returned to baseline at 1.3. He did have low magnesium and this was since replaced. He also had mild hyperbilirubinemia at 2.1 however direct bilirubin was obtained and was 0.3. His LFTs were normal and no abdominal pain. CT scan of abdomen\pelvis did not reveal any liver or gallbladder pathology. Stool culture was able to be obtained prior to discharge. Stool PCR + for norovirus. On day of discharge patient was in good spirits and was at bedside. His symptoms have resolved. Although he did have loose bowels after lunch. His diet will be upgraded to regular diet and he is encouraged to follow a brat/bland diet until symptoms fully resolved. Pt ester erated soft diet and will be discharged home with . On day of discharge he is hemodynamically stable. Patient was seen and examined in collaboration with, Dr. Del Valle, please see addendum Discharge Exam Gen: WD/WN, NAD, A&O x3 HEENT: Normocephalic, atraumatic, conjunctivae moist, sclerae anicteric, mucous membranes moist. Lung: Clear to Auscultation bilaterally, no wheezes/rales/rhonchi Heart: Regular rate, regular rhythm, no murmurs, rubs, or gallops Abdomen: Soft, NT, ND +BS x 4 Extremities: No edema Skin: Warm, no rash, negative turgor. Updated Medication List Medication Instructions Recorded Confirmed Type No Known Home Medications 04/30/22 04/30/22 History Hospital Stay Data Consultations 04/30/22 23:35 ED Decision to Admit Stat Diagnostic Imagining Performed Abdomen/Pelvis CT 04/30/22 20:50 Exam(s): CT ABDOMEN + PELVIS With Contrast EXAM: CT Abdomen and Pelvis With Intravenous Contrast CLINICAL HISTORY: Reason for exam: nvd. TECHNIQUE: Axial computed tomography images of the abdomen and pelvis with intravenous contrast. CTDI is 6.8 mGy and DLP is 357.86 mGy-cm. Automated exposure control was utilized for the study. A dose lowering technique was utilized adhering to the principles of ALARA. CONTRAST: Contrast must be dictated COMPARISON: None. FINDINGS: Lung bases: Groundglass opacity within the right middle lobe compatible with pneumonitis. Posterior dependent atelectasis. Heart: Borderline cardiomegaly. Mediastinum: Tiny hiatal hernia. Otherwise unremarkable stomach. ABDOMEN: Liver: Unremarkable. No mass. Gallbladder and bile ducts: Unremarkable. No calcified stones. No ductal dilation. Pancreas: Unremarkable. No mass. No ductal dilation. Spleen: Unremarkable. No splenomegaly. Adrenals: Unremarkable. No mass. Kidneys and ureters: Multiple bilateral simple renal cyst, largest on the right seen in the upper pole measuring 2.9 cm in maximum dimension and largest on the left seen in the mid upper pole measuring 4.5 cm. Otherwise unremarkable bilateral kidneys. Stomach and bowel: Unremarkable. No obstruction. No mucosal thickening. PELVIS: Appendix: Normal appendix. Bladder: Unremarkable. No mass. Reproductive: Unremarkable as visualized. ABDOMEN and PELVIS: Intraperitoneal space: Unremarkable. No free air. No significant fluid collection. Bones/joints: Advanced degenerative disease throughout the lumbar spine, more severe at L2-L3 and L4-L5. There is fluid within the distal colon with mild thickening of the wall along the right ascending portion. Mild thickening of the wall of the proximal jejunum, a combination of findings which may indicate mild enterocolitis. No acute fracture. No dislocation. Soft tissues: Unremarkable. Vasculature: Mild atherosclerotic disease throughout the aorta with tortuosity. No abdominal aortic aneurysm. Lymph nodes: Unremarkable. No enlarged lymph nodes. IMPRESSION: 1. Cannot exclude mild enterocolitis. No acute appendicitis or bowel obstruction. 2. Nonspecific bilateral simple cyst, otherwise unremarkable abdominal viscera. 3. Tiny hiatal hernia otherwise unremarkable stomach. Electronically signed by: Martha Heaton MD 04/30/22 22:37 PM Pending Results Patient Have Any Pending Studies at Discharge: No Discharge Instructions Given to Patient (Per Discharging Provider) MEDICATION CHANGES: None SUMMARY OF TEST RESULTS: You were admitted to hospital secondary to nausea, vomiting and diarrhea. You were diagnosed with likely viral gastroenteritis. Your symptoms resolved with bowel rest, IV fluids and medications to treat nausea. You were unable to provide stool sample to determine exact cause. On day of discharge you are tolerating regular diet. PENDING TEST RESULTS: None RECOMMENDATIONS FOR FOLLOW-UP: Please follow-up with your primary care provider as scheduled. Recommend sticking to a brat diet (bananas, rice, applesauce and toast) or bland food items until symptoms fully resolved. Recommend staying well-hydrated with at least 80 ounces of water daily. You may resume your normal activity. On day of discharge your A1c was 5.6 OTHER INSTRUCTIONS: Seek medical attention if you have: * temperature above 101 * chest pain or trouble breathing * abdominal pain, nausea, vomiting * diarrhea, dark stools or bloody stools * any unanswered questions or concerns Call 911 if symptoms are severe. Please take good care of yourself. It has been a pleasure taking care of you. Please take care of yourself. If you have any questions regarding your recent hospitalization please contact [facility] and [facility] @ [phone]. Alice Galvan PA-C Total Time Total Time Spent Total Time Spent (In Minutes): 45 minutes Supervising Physician Co-Signing Physician Notes Patient seen and examined at bedside as a follow-up of intractable nausea and vomiting and enterocolitis and acute on chronic kidney injury CKD stage III. Patient reports improving nausea, vomiting, diarrhea. Advance diet as tolerated. Likely could be a viral gastroenteritis. WBC and Pro-Luis which were elevated earlier downtrended without use of any antibiotic. Patient reports improving diet and had only 1 episode of diarrhea today. Norovirus was found positive on stool studies. Patient advised to advance the diet as tolerated and continue with [id number] Pedialyte solution over the course of several days until his bowel movement goes back to normal. Acute kidney injury seems improved today. We will discontinue IV fluid. On examination: Patient on room air, no BLE edema, heart/lungs and abdomen examination WNL. Rest of the examination as above. I have seen and examined the patient and have discussed the case with the provider above. I agree with the assessment and plan as stated.
[2022-05-02 14:38] LABS: Adenovirus F 40/41 PCR Not Detected (NotDetected); Astrovirus PCR Not Detected (NotDetected); Cryptosporidium PCR Not Detected (NotDetected); Cyclospora cayetanensis PCR Not Detected (NotDetected); Entamoeba histolytica PCR Not Detected (NotDetected); Enteroaggregative E.coli(EAEC) Not Detected (NotDetected); Enteropathogenic E.coli (EPEC) Not Detected (NotDetected); Enterotoxigenic E.coli (ETEC) Not Detected (NotDetected); Giardia lamblia PCR Not Detected (NotDetected); Norovirus GI/GII PCR DETECTED (NotDetected); Plesiomonas shigelloides PCR Not Detected (NotDetected); Rotavirus A PCR Not Detected (NotDetected); Salmonella PCR Not Detected (NotDetected); Sapovirus PCR Not Detected (NotDetected); Shiga-like Toxin E.coli (STEC) Not Detected (NotDetected); Shigella/Enteroinvasive E.coli Not Detected (NotDetected); Vibrio cholerae PCR Not Detected (NotDetected); Vibrio species PCR Not Detected (NotDetected); Yersinia enterocolitica PCR Not Detected (NotDetected)
[2022-05-02 15:11] LABS: Campylobacter PCR Not Detected (NotDetected)
--- NOTE | 2022-05-15 14:01 | Coding Query ---
A supporting diagnosis is required for the test/procedure performed on this patient in order for us to be reimbursed by the patient's insurance. Please provide a supporting diagnosis for the following test/procedure listed below next to the test name along with your signature. *If there is no additional diagnosis for this patient that would support the following test/procedure please document that below next to the test/procedure. Test(s)/Procedure(s) that require a supporting diagnosis: GI GASTROINTESTINAL PANEL DIAGNOSIS: Diarrhea Provider Signature: _DANNY Mcnally Date: _ 05/15/22 Thank you Rosalina Trujillo Health Information Management Once completed, please kindly fax back to [phone] For questions please call [phone] NANDA
== END 2022-05-02 16:04 | disposition home or self-care (01) ==
LOC: ED 19:10 → 3W 19:10

== ENCOUNTER 2024-03-20 17:47 | Observation (INO) ==
[2024-03-20 18:34] LABS: Basophils # (auto) 0.02 K/uL (0.00-0.20); Basophils % (auto) 0.3 %; Hematocrit (blood only) 40.7 % (42.0-52.0); Hemoglobin 13.8 g/dl (14.0-18.0); Immature Granulocytes # (auto) 0.02 K/uL (0.01-0.20); Immature Granulocytes % (auto) 0.3 %; Lymphocytes % (auto) 8.8 %; Mean Corpuscular Hemoglobin 28.4 pg (25.0-34.0); Mean Corpuscular Hgb Conc 33.9 g/dL (32.0-36.0); Mean Corpuscular Volume 83.7 fL (80.0-100.0); Mean Platelet Volume 10.3 fL (9.4-12.4); Monocytes # (auto) 1.46 K/uL (0.11-0.59); Monocytes % (auto) 18.5 %; Neutrophils # (auto) 5.71 K/uL (1.40-6.50); Neutrophils % (auto) 72.1 %; Platelet Count 128 K/uL (130-400); RDW Coefficient of Variation 12.7 % (11.5-14.5); Red Blood Count 4.86 M/uL (4.70-6.10); White Blood Count 7.91 K/ul (4.8-10.8)
[2024-03-20 18:50] LABS: Albumin Globulin Ratio 1.4 (0.9-2); Albumin Level 4.3 gm/dl (3.4-5.0); BUN Creatinine Ratio 13.2 (10-20); Bilirubin,Total 1.9 mg/dl (0.2-1.0); Calcium 9.3 mg/dl (8.6-10.3); Potassium 4.1 mmol/L (3.5-5.1); Total Protein 7.3 gm/dl (6.0-8.3)
[2024-03-20 19:26] LABS: Appearance Urine Clear (Clear); Bacteria Urine Automated None Seen (None Seen); Bilirubin Urine Negative (Negative); Blood Urine Trace (Negative); Color Urine Dark Yellow; Epithelial Cell Urine Auto 0-2 /hpf (0-2); Glucose Urine UA Negative (Negative); Hyaline Casts Urine Present /lpf (None Presnt); Ketones Urine 2+ (Negative); Leukocyte Esterase Urine Negative (Negative); Mucus Urine Present (None Prsent); Nitrite Urine Negative (Negative); Protein Urine 2+ (Negative); Urobilinogen Urine Negative (Negative); WBC Urine Automated 0-5 /hpf (0-5); pH Urine 5.5 (4.5-7.5)
[2024-03-20 19:28] LABS: Adenovirus PCR Not Detected (NotDetected); Bordetella parapertussis PCR Not Detected (NotDetected); Bordetella pertussis PCR Not Detected (NotDetected); Chlamydia pneumoniae PCR Not Detected (NotDetected); Coronavirus 229E PCR Not Detected (NotDetected); Coronavirus CoV-2 (COVID19)PCR Not Detected (NotDetected); Coronavirus HKU1 PCR Not Detected (NotDetected); Coronavirus NL63 PCR Not Detected (NotDetected); Coronavirus OC43PCR Not Detected (NotDetected); Human Metapneumovirus PCR Not Detected (NotDetected); Influenza A (H1 2009) PCR DETECTED (NotDetected); Influenza B PCR Not Detected (NotDetected); Mycoplasma pneumoniae PCR Not Detected (NotDetected); Parainfluenza Virus 1 PCR Not Detected (NotDetected); Parainfluenza Virus 2 PCR Not Detected (NotDetected); Parainfluenza Virus 3 PCR Not Detected (NotDetected); Parainfluenza Virus 4 PCR Not Detected (NotDetected); Respiratory Syncytial VirusPCR Not Detected (NotDetected); Rhinovirus/Enterovirus PCR Not Detected (NotDetected)
--- NOTE | 2024-03-20 19:32 | Emergency Department Note ---
Impression & Plan Generalized weakness, Influenza A (H1N1) ED Provider Note HISTORY OF PRESENT ILLNESS: Patient is a 74-year-old male presenting with nausea. Patient reports that he was at the [facility] yesterday for cardiology appointment. States that he was on his ride home when he developed a sore throat. Reports he also developed significant nausea and route home. He states that he has been having intermittent nausea for the last 3 months. He states that he has not vomited or had any diarrhea. He reports feeling very weak and rundown. He reports a fever 100.5 earlier this afternoon, and did not take any antipyretics prior to arrival. reported that the patient was very fatigued and weak and did not seem to want a get out of bed today. Denies any recent sick contact exposures that he is aware of. He denies any chest pain or shortness of breath. Denies any dysuria or hematuria. Denies any abdominal pain. ROS: as above PHYSICAL EXAM: Constitutional: Patient appears in no acute distress. HENT: Head: Normocephalic and atraumatic. Eyes: EOMI, PERRL Mouth/Throat: Mucous membranes moist. Neck: Trachea midline. Neck supple. Cardiovascular: RRR, No rubs or gallops. Intact distal pulses. Pulmonary/Chest: No respiratory distress. Breath sounds clear and equal bilaterally. No wheezes or rales. Abdominal: Abdomen soft, no tenderness, rebound or guarding. Musculoskeletal: No edema, tenderness or deformity noted. Skin: Warm and dry. No rash, erythema, pallor or cyanosis Psychiatric: Appropriate mood and affect for situation. Neurological: Alert and keenly responsive. CN II-XII grossly intact, moving all extremities equally and fully. MDM: - Vitals signs showed hypertension. - History obtained via patient. History as above. - Chronic conditions affecting care: CKD; IBS; GERD - Differential diagnoses include, but are not limited to: Viral syndrome; ACS; pneumonia; electrolyte abnormality; dehydration; UTI - Order placed for continuous cardiac monitoring. At this time, monitor showed rate of 101 bpm with normal sinus rhythm, per my interpretation. - External medical records reviewed. Discharge summary dated 05/02/2022 was reviewed. Patient was admitted that time for intractable nausea and vomiting. - EKG interpreted by myself showed normal sinus rhythm. Rate 80 bpm. QT 354. No acute ischemic changes. Noted to have PVCs. - Laboratory workup interpreted by myself showed normal WBC; stable electrolytes; elevated total bilirubin (1.9) - UA negative for infection. Noted to have ketonuria - CXR negative for pneumonia, per my interpretation - Viral respiratory panel positive for influenza H1N1 - Discussed pulse with the patient. He tolerated oral intake in the emergency department. However, he reports he is still feeling unwell and feels like he is too weak to go home. He would prefer to "stay the night in the hospital." Will discuss case with hospitalist service. - Discussion was had with telehealth case manager about patient's case and need for admission - Hospitalist, Dr. Valdovinos, consulted for admission - Patient admitted to [facility] hospitalist service for further evaluation and management. ASSESSMENT AND PLAN: Diagnosis: Generalized weakness; influenza A (H1N1) Plan: Admit Past Med/Surg History Problem List (Updated 03/20/24 @ 22:20 by Berkley Lazar MD) Influenza A (H1N1) (Acute) Generalized weakness (Acute) Medical History Acute kidney injury superimposed on chronic kidney disease Enterocolitis Intractable nausea and vomiting GERD (gastroesophageal reflux disease) IBS (irritable bowel syndrome) Rupture of right Achilles tendon Social History Smoking Status: Never smoker Hx Alcohol Use: Yes Alcohol type: wine Hx Substance Use: No Preferred Language: Bengali Communication Ability: Effective Garment Form Assembler Required: No Beliefs That Will Affect Care: None Current Living Situation: Spouse Feels Safe at Home: Yes Assistive Devices: None Allergies Allergies Allergy/AdvReac Type Severity Reaction Status Date / Time No Known Allergies Allergy Verified 03/12/24 08:34 Home Meds Home Medications Medication Instructions Recorded Confirmed famotidine 40 mg tablet 40 mg PO HS 03/12/24 03/20/24 metoprolol succinate 25 mg 25 mg PO DAILY 03/12/24 03/20/24 tablet,extended release 24 hr omeprazole 40 mg capsule,delayed 40 mg PO DAILY 03/12/24 03/20/24 release psyllium 1 packet PO DAILY PRN Constipation 03/12/24 03/20/24 lisinopril 5 mg tablet 5 mg PO QAM 03/20/24 03/20/24 lorazepam 0.5 mg tablet 0.5 mg PO TID PRN Anxiety 03/20/24 03/20/24 rifaximin 550 mg tablet (Xifaxan) 1 mg PO UD 03/20/24 03/20/24 sucralfate 1 gram tablet 1 g PO TID PRN Heartburn 03/20/24 03/20/24 Results & Data (ED) Vital Signs Vital Signs - 24 hr 03/20/24 17:57 03/20/24 18:34 03/20/24 18:50 Temperature 36.5 C 37.5 C Temperature Source Temporal Artery Scan Oral Pulse Rate 115 H 75 Pulse Rate [Apical] 87 Respiratory Rate 18 18 Respiratory Effort / Characteristics Non-Labored Spontaneous Respiratory Depth Normal Blood Pressure 115/86 Blood Pressure [Right Arm] 149/86 H Blood Pressure Mean 95 Blood Pressure Mean [Right Arm] 107 Pulse Oximetry 98 95 Oxygen Delivery Method Room Air Room Air Sepsis Recent Fever Within 48 Hours No Sepsis New/Unexplained Change in Mental Status No Sepsis Action Taken by Nursing No Action Required 03/20/24 19:00 03/20/24 19:30 03/20/24 20:00 Temperature Temperature Source Pulse Rate 68 74 78 Pulse Rate [Apical] Respiratory Rate 18 18 20 Respiratory Effort / Characteristics Respiratory Depth Blood Pressure 134/87 144/84 H 139/89 Blood Pressure [Right Arm] Blood Pressure Mean 98 109 105 Blood Pressure Mean [Right Arm] Pulse Oximetry 94 94 95 Oxygen Delivery Method Sepsis Recent Fever Within 48 Hours Sepsis New/Unexplained Change in Mental Status Sepsis Action Taken by Nursing 03/20/24 21:00 03/20/24 21:55 Temperature Temperature Source Pulse Rate 91 H 109 H Pulse Rate [Apical] Respiratory Rate 20 Respiratory Effort / Characteristics Respiratory Depth Blood Pressure 146/85 H Blood Pressure [Right Arm] Blood Pressure Mean 105 Blood Pressure Mean [Right Arm] Pulse Oximetry 95 Oxygen Delivery Method Sepsis Recent Fever Within 48 Hours Sepsis New/Unexplained Change in Mental Status Sepsis Action Taken by Nursing Laboratory Data 03/20/24 18:00 03/20/24 18:00 Lab Results 03/20/24 03/20/24 Range/Units 18:00 19:05 WBC 7.91 (4.8-10.8) K/ul RBC 4.86 (4.70-6.10) M/uL Hgb 13.8 L (14.0-18.0) g/dl Hct 40.7 L (42.0-52.0) % MCV 83.7 (80.0-100.0) fL MCH 28.4 (25.0-34.0) pg MCHC 33.9 (32.0-36.0) g/dL RDW Std Deviation 39.0 (36.4-46.3) fL RDW Coeff of Mindy 12.7 (11.5-14.5) % Plt Count 128 L (130-400) K/uL MPV 10.3 (9.4-12.4) fL Immature Gran % (Auto) 0.3 % Neut % (Auto) 72.1 % Lymph % (Auto) 8.8 % [place] % (Auto) 18.5 % Eos % (Auto) 0.0 % Baso % (Auto) 0.3 % Neut # (Auto) 5.71 (1.40-6.50) K/uL Lymph # (Auto) 0.70 L (1.20-3.40) K/uL [place] # (Auto) 1.46 H (0.11-0.59) K/uL Eos # (Auto) 0.00 (0.00-0.50) K/uL Baso # (Auto) 0.02 (0.00-0.20) K/uL Immature Gran # (Auto) 0.02 (0.01-0.20) K/uL Sodium 135 L (136-145) mmol/L Potassium 4.1 (3.5-5.1) mmol/L Chloride 101 (98-107) mmol/L Carbon Dioxide 25 (21-32) mmol/L Anion Gap 9 (3-11) BUN 17 (6-23) mg/dl Creatinine 1.29 (0.6-1.4) mg/dl Est Cr Clr Drug Dosing 60.0 ml/min eGFR 58.18 BUN/Creatinine Ratio 13.2 (10-20) Glucose 113 H (70-99(Fasting)) mg/dl Calcium 9.3 (8.6-10.3) mg/dl Total Bilirubin 1.9 H (0.2-1.0) mg/dl AST 20 (13-39) U/L ALT 14 (7-52) U/L Alkaline Phosphatase 56 (34-104) U/L Total Protein 7.3 (6.0-8.3) gm/dl Albumin 4.3 (3.4-5.0) gm/dl Globulin 3.0 (2.5-4.0) gm/dl Albumin/Globulin Ratio 1.4 (0.9-2) Urine Color Dark Yellow Urine Appearance Clear (Clear) Urine pH 5.5 (4.5-7.5) Ur Specific [place] 1.030 (1.000-1.030) Urine Protein 2+ H (Negative) Urine Glucose (UA) Negative (Negative) Urine Ketones 2+ H (Negative) Urine Blood Trace H (Negative) Urine Nitrite Negative (Negative) Urine Bilirubin Negative (Negative) Urine Urobilinogen Negative (Negative) Ur Leukocyte Esterase Negative (Negative) Urine WBC (Auto) 0-5 (0-5) /hpf Urine RBC (Auto) 3-5 H (0-2) /hpf U Hyaline Cast (Auto) 3-5 H (0-2) /lpf U Epithel Cells (Auto) 0-2 (0-2) /hpf Urine Bacteria (Auto) None Seen (None Seen) Hyaline Casts Present A (None Presnt) /lpf Urine Mucus Present A (None Prsent) Nasal Influ A H1 2009 PCR DETECTED A (NotDetected) Adenovirus (PCR) Not Detected (NotDetected) B. pertussis DNA (PCR) Not Detected (NotDetected) B.parapertussis DNA PCR Not Detected (NotDetected) C. pneumoniae DNA (PCR) Not Detected (NotDetected) Coronavirus OC43 (PCR) Not Detected (NotDetected) Coronavirus HKU1 (PCR) Not Detected (NotDetected) Coronavirus 229E (PCR) Not Detected (NotDetected) SARS-CoV-2 (PCR) Not Detected (NotDetected) Coronavirus NL63 (PCR) Not Detected (NotDetected) Human Metapneumovir PCR Not Detected (NotDetected) Influenza Type B (PCR) Not Detected (NotDetected) M. pneumoniae (PCR) Not Detected (NotDetected) Parainfluenza 1 (PCR) Not Detected (NotDetected) Parainfluenza 2 (PCR) Not Detected (NotDetected) Parainfluenza 3 (PCR) Not Detected (NotDetected) Parainfluenza 4 (PCR) Not Detected (NotDetected) RSV (PCR) Not Detected (NotDetected) Entero/Rhino (PCR) Not Detected (NotDetected) Imaging Data Radiologist's Impression: Chest X-Ray 03/20/24 17:59 Exam(s): XR CXR 1 VIEW EXAM: XR Chest, 1 View CLINICAL HISTORY: illness. TECHNIQUE: Frontal view of the chest. COMPARISON: Chest single view 03/05/2023 FINDINGS: Lungs: Unremarkable. No consolidation. The pulmonary vasculature demonstrates no significant radiographic abnormality. Pleural space: Unremarkable. No pneumothorax. No large pleural effusion. Heart: Unremarkable. No cardiomegaly. Mediastinum: The mediastinal contours are stable and unremarkable. No tracheal deviation. Bones/joints: Unremarkable. No acute fracture. IMPRESSION: No acute cardiopulmonary process or significant alteration from the prior examination. Electronically signed by: Quique Nazario MD 03/20/24 20:59 PM Discharge Plan Visit Data Chief Complaint: Nausea Stated Complaint: NAUSEA ED Provider: Berkley Lazar Discharge Problem: Generalized weakness, Influenza A (H1N1) Forms Stand Alone Forms: [facility] Prescriptions Prescriptions: No Action sucralfate 1 gram tablet 1 g PO TID PRN (Reason: Heartburn) Xifaxan 550 mg tablet 1 mg PO UD Rx Instructions: TAKE 1 TABLET BY MOUTH IN THE MORNING,AT NOON,AND BEFORE BEDTIME FOR 14 DAYS...ORDERED 03/13/24 lorazepam 0.5 mg tablet 0.5 mg PO TID PRN (Reason: Anxiety) lisinopril 5 mg tablet 5 mg PO QAM famotidine 40 mg Tablet 40 mg PO HS Metamucil Packet 1 packet PO DAILY PRN (Reason: Constipation) Rx Instructions: mix into at least 8 oz of water or juice before administering omeprazole 40 mg Capsule,Delayed Release(Dr/Ec) 40 mg PO DAILY metoprolol succinate 25 mg Tablet Extended Release 24 Hr 25 mg PO DAILY Referrals Referrals: Demetrio Mills MD [Primary Care Provider] -
--- NOTE | 2024-03-20 21:00 | XRay Report ---
Exam(s): XR CXR 1 VIEW EXAM: XR Chest, 1 View CLINICAL HISTORY: illness. TECHNIQUE: Frontal view of the chest. COMPARISON: Chest single view 03/05/2023 FINDINGS: Lungs: Unremarkable. No consolidation. The pulmonary vasculature demonstrates no significant radiographic abnormality. Pleural space: Unremarkable. No pneumothorax. No large pleural effusion. Heart: Unremarkable. No cardiomegaly. Mediastinum: The mediastinal contours are stable and unremarkable. No tracheal deviation. Bones/joints: Unremarkable. No acute fracture. IMPRESSION: No acute cardiopulmonary process or significant alteration from the prior examination. Electronically signed by: Quique Nazario MD 03/20/24 20:59 PM
[2024-03-20] MEDS: ONDANSETRON INJ 2 MG/ML 2 ML VIAL IV STA (22:29)
[2024-03-20 22:30] LABS: Magnesium 1.6 mg/dl (1.7-2.4)
[2024-03-20] MEDS: ONDANSETRON INJ 2 MG/ML 2 ML VIAL ONE (22:31)
[2024-03-20] MEDS: OSELTAMIVIR PHOSPHATE 75 MG CAP PO SCH (22:31)
[2024-03-20 22:45] LABS: Thyroid Stimulating Hormone 0.788 uIu/ml (0.300-4.500)
[2024-03-20] MEDS: METOPROLOL TARTRATE 1 MG/ML VIAL IV STA (23:04)
[2024-03-20] MEDS: SODIUM CHLORIDE 0.9% 1,000 ML IV ONE (23:08)
[2024-03-20] MEDS: MAGNESIUM SULFATE / D5W 1 GM/100 ML BAG IV ONE (23:09)
--- NOTE | 2024-03-20 23:12 | History & Physical Report ---
Date of Service March 20, 2024 Assessment & Plan (1) Generalized weakness: Plan: Weakness secondary to influenza illness valvular heart disease (severe MR, mild mitral valve prolapse/mild TR), surgery to be scheduled at [facility] symptomatic PVCs as per records, PVCs on EKG although patient without cardiac complaints. hypertension, stable SIBO currently on Xifaxan course Hyperglycemia rule out DM Hypomagnesemia OBS Admit to medical floor Tamiflu Replace magnesium Check hemoglobin A1c DVT prophylaxis. SCDs Full code Home in a.m. if patient feeling better. Text document was generated using [employer] voice recognition software. It may contain grammatical or spelling errors. Kindly contact undersigned for clarification of any documentation item in question. History of Present Illness Chief Complaint: Weakness, nausea Primary Care Provider: Roger Gonsalves MD History obtained from patient and records. Medical history significant for valvular heart disease (severe MR, mild mitral valve prolapse/mild TR), symptomatic PVCs, hypertension, GERD, IBS, SIBO currently on Xifaxan, skin cancer as per records. Last confinement 2022 for enterocolitis. Patient started feeling ill on the way home from [facility] following gold burnisher appointment to discuss perspective mitral valve surgery. Sore throat followed by nausea and transient diarrhea symptoms. No abdominal pain. Fever of 100.5 today. Poor appetite. Denies headache, chest pain, SOB. Junky cough symptoms but patient unable to expectorate. Patient brought to ER by for evaluation. Flu swab positive. Patient uncomfortable going home. Medical History as above Surgical History : Tonsillectomy Family History : Lung cancer, colon cancer, DM, heart disease Personal/Social history : Non-smoker, no recent EtOH intake, retired park employee Allergies Allergy/AdvReac Type Severity Reaction Status Date / Time No Known Allergies Allergy Verified 03/12/24 08:34 Home Medications Medication Instructions Recorded Confirmed Type famotidine 40 mg tablet 40 mg PO HS 03/12/24 03/20/24 History metoprolol succinate 25 mg 25 mg PO QAM 03/12/24 03/20/24 History tablet,extended release 24 hr psyllium 1 packet PO DAILY PRN Constipation 03/12/24 03/20/24 History lorazepam 0.5 mg tablet 0.5 mg PO TID PRN Anxiety 03/20/24 03/20/24 History omeprazole 20 mg capsule,delayed 40 mg PO QAM 03/20/24 03/20/24 History release rifaximin 550 mg tablet (Xifaxan) 1 mg PO TID 03/20/24 03/20/24 History Past Med/Surg History Problem List (Updated 03/20/24 @ 22:20 by Berkley Lazar MD) Influenza A (H1N1) (Acute) Generalized weakness (Acute) Medical History Acute kidney injury superimposed on chronic kidney disease Enterocolitis Intractable nausea and vomiting GERD (gastroesophageal reflux disease) IBS (irritable bowel syndrome) Rupture of right Achilles tendon Social History Smoking Status: Never smoker Hx Alcohol Use: No Hx Substance Use: No Preferred Language: Uzbek Communication Ability: Effective Software Engineering Specialist Required: No Beliefs That Will Affect Care: None Current Living Situation: Spouse Other Information That Helps Us Care for You: No Feels Safe at Home: Yes Safety Concerns: Feels Safe At This Time Assistive Devices: Glasses and Hearing Aid - Bilateral Review of Systems Review of Systems: As per HPI, all other systems reviewed and negative Physical Exam Physical Exam: GENERAL: Comfortable, pleasant, no respiratory distress SKIN: Normal color, warm HEENT: Partial alopecia, pink palpebral conjunctivae, no ptosis, dry buccal mucosa NECK : Supple, no tenderness CHEST : CTA, no tenderness HEART : RRR, no obvious murmurs ABDOMEN: Some distention, nontender EXTREMITIES : No LE swelling/tenderness, no other conspicuous deformities noted NEUROLOGIC : Coherent, no facial asymmetry, no other gross focality Results & Data Results & Data Vital Signs (Past 12 Hours) Vital Signs Temp Pulse Pulse Resp BP BP Pulse Ox 03/20/24 23:00 82 16 146/102 H 93 03/20/24 22:00 77 20 126/71 93 03/20/24 21:55 109 H 03/20/24 21:00 72 16 146/85 H 93 03/20/24 21:00 91 H 20 146/85 H 95 03/20/24 20:00 78 20 139/89 95 03/20/24 19:30 74 18 144/84 H 94 03/20/24 19:00 68 18 134/87 94 03/20/24 18:50 37.5 C 87 18 149/86 H 95 03/20/24 18:34 75 03/20/24 17:57 36.5 C 115 H 18 115/86 98 O2 Del Method 03/20/24 23:00 03/20/24 22:00 03/20/24 21:55 03/20/24 21:00 03/20/24 21:00 03/20/24 20:00 03/20/24 19:30 03/20/24 19:00 03/20/24 18:50 Room Air 03/20/24 18:34 03/20/24 17:57 Room Air Laboratory Results Laboratory Results WBC 7.91 K/ul (4.8-10.8) 03/20/24 18:00 RBC 4.86 M/uL (4.70-6.10) 03/20/24 18:00 Hgb 13.8 g/dl (14.0-18.0) L 03/20/24 18:00 Hct 40.7 % (42.0-52.0) L 03/20/24 18:00 MCV 83.7 fL (80.0-100.0) 03/20/24 18:00 MCH 28.4 pg (25.0-34.0) 03/20/24 18:00 MCHC 33.9 g/dL (32.0-36.0) 03/20/24 18:00 RDW Std Deviation 39.0 fL (36.4-46.3) 03/20/24 18:00 RDW Coeff of Mindy 12.7 % (11.5-14.5) 03/20/24 18:00 Plt Count 128 K/uL (130-400) L 03/20/24 18:00 MPV 10.3 fL (9.4-12.4) 03/20/24 18:00 Immature Gran % (Auto) 0.3 % 03/20/24 18:00 Neut % (Auto) 72.1 % 03/20/24 18:00 Lymph % (Auto) 8.8 % 03/20/24 18:00 [place] % (Auto) 18.5 % 03/20/24 18:00 Eos % (Auto) 0.0 % 03/20/24 18:00 Baso % (Auto) 0.3 % 03/20/24 18:00 Neut # (Auto) 5.71 K/uL (1.40-6.50) 03/20/24 18:00 Lymph # (Auto) 0.70 K/uL (1.20-3.40) L 03/20/24 18:00 Burke # (Auto) 1.46 K/uL (0.11-0.59) H 03/20/24 18:00 Eos # (Auto) 0.00 K/uL (0.00-0.50) 03/20/24 18:00 Baso # (Auto) 0.02 K/uL (0.00-0.20) 03/20/24 18:00 Immature Gran # (Auto) 0.02 K/uL (0.01-0.20) 03/20/24 18:00 Sodium 135 mmol/L (136-145) L 03/20/24 18:00 Potassium 4.1 mmol/L (3.5-5.1) 03/20/24 18:00 Chloride 101 mmol/L (98-107) 03/20/24 18:00 Carbon Dioxide 25 mmol/L (21-32) 03/20/24 18:00 Anion Gap 9 (3-11) 03/20/24 18:00 BUN 17 mg/dl (6-23) 03/20/24 18:00 Creatinine 1.29 mg/dl (0.6-1.4) 03/20/24 18:00 Est Cr Clr Drug Dosing 60.0 ml/min 03/20/24 18:00 eGFR 58.18 03/20/24 18:00 BUN/Creatinine Ratio 13.2 (10-20) 03/20/24 18:00 Glucose 113 mg/dl (70-99(Fasting)) H 03/20/24 18:00 Calcium 9.3 mg/dl (8.6-10.3) 03/20/24 18:00 Magnesium 1.6 mg/dl (1.7-2.4) L 03/20/24 18:00 Total Bilirubin 1.9 mg/dl (0.2-1.0) H 03/20/24 18:00 AST 20 U/L (13-39) 03/20/24 18:00 ALT 14 U/L (7-52) 03/20/24 18:00 Alkaline Phosphatase 56 U/L (34-104) 03/20/24 18:00 Total Protein 7.3 gm/dl (6.0-8.3) 03/20/24 18:00 Albumin 4.3 gm/dl (3.4-5.0) 03/20/24 18:00 Globulin 3.0 gm/dl (2.5-4.0) 03/20/24 18:00 Albumin/Globulin Ratio 1.4 (0.9-2) 03/20/24 18:00 TSH 0.788 uIu/ml (0.300-4.500) 03/20/24 18:00 Urine Color Dark Yellow 03/20/24 19:05 Urine Appearance Clear (Clear) 03/20/24 19:05 Urine pH 5.5 (4.5-7.5) 03/20/24 19:05 Ur Specific [place] 1.030 (1.000-1.030) 03/20/24 19:05 Urine Protein 2+ (Negative) H 03/20/24 19:05 Urine Glucose (UA) Negative (Negative) 03/20/24 19:05 Urine Ketones 2+ (Negative) H 03/20/24 19:05 Urine Blood Trace (Negative) H 03/20/24 19:05 Urine Nitrite Negative (Negative) 03/20/24 19:05 Urine Bilirubin Negative (Negative) 03/20/24 19:05 Urine Urobilinogen Negative (Negative) 03/20/24 19:05 Ur Leukocyte Esterase Negative (Negative) 03/20/24 19:05 Urine WBC (Auto) 0-5 /hpf (0-5) 03/20/24 19:05 Urine RBC (Auto) 3-5 /hpf (0-2) H 03/20/24 19:05 U Hyaline Cast (Auto) 3-5 /lpf (0-2) H 03/20/24 19:05 U Epithel Cells (Auto) 0-2 /hpf (0-2) 03/20/24 19:05 Urine Bacteria (Auto) None Seen (None Seen) 03/20/24 19:05 Hyaline Casts Present /lpf (None Presnt) A 03/20/24 19:05 Urine Mucus Present (None Prsent) A 03/20/24 19:05 Nasal Influ A H1 2008 PCR DETECTED (NotDetected) A 03/20/24 18:00 Adenovirus (PCR) Not Detected (NotDetected) 03/20/24 18:00 B. pertussis DNA (PCR) Not Detected (NotDetected) 03/20/24 18:00 B.parapertussis DNA PCR Not Detected (NotDetected) 03/20/24 18:00 C. pneumoniae DNA (PCR) Not Detected (NotDetected) 03/20/24 18:00 Coronavirus OC43 (PCR) Not Detected (NotDetected) 03/20/24 18:00 Coronavirus HKU1 (PCR) Not Detected (NotDetected) 03/20/24 18:00 Coronavirus 229E (PCR) Not Detected (NotDetected) 03/20/24 18:00 SARS-CoV-2 (PCR) Not Detected (NotDetected) 03/20/24 18:00 Coronavirus NL63 (PCR) Not Detected (NotDetected) 03/20/24 18:00 Human Metapneumovir PCR Not Detected (NotDetected) 03/20/24 18:00 Influenza Type B (PCR) Not Detected (NotDetected) 03/20/24 18:00 M. pneumoniae (PCR) Not Detected (NotDetected) 03/20/24 18:00 Parainfluenza 1 (PCR) Not Detected (NotDetected) 03/20/24 18:00 Parainfluenza 2 (PCR) Not Detected (NotDetected) 03/20/24 18:00 Parainfluenza 3 (PCR) Not Detected (NotDetected) 03/20/24 18:00 Parainfluenza 4 (PCR) Not Detected (NotDetected) 03/20/24 18:00 RSV (PCR) Not Detected (NotDetected) 03/20/24 18:00 Entero/Rhino (PCR) Not Detected (NotDetected) 03/20/24 18:00 Impressions Chest X-Ray 03/20/24 17:59 Exam(s): XR CXR 1 VIEW EXAM: XR Chest, 1 View CLINICAL HISTORY: illness. TECHNIQUE: Frontal view of the chest. COMPARISON: Chest single view 03/05/2023 FINDINGS: Lungs: Unremarkable. No consolidation. The pulmonary vasculature demonstrates no significant radiographic abnormality. Pleural space: Unremarkable. No pneumothorax. No large pleural effusion. Heart: Unremarkable. No cardiomegaly. Mediastinum: The mediastinal contours are stable and unremarkable. No tracheal deviation. Bones/joints: Unremarkable. No acute fracture. IMPRESSION: No acute cardiopulmonary process or significant alteration from the prior examination. Electronically signed by: Quique Nazario MD 03/20/24 20:59 PM Diagnostic Findings EKG as per my interpretation :Rate 80, NSR, normal axis, T wave inversion inferior leads, PVCs
[2024-03-20] MEDS ORDERED: PROMETHAZINE 6.25 MG/50.25 ML BAG IV PRN (23:14)
[2024-03-20] MEDS ORDERED: ACETAMINOPHEN 325 MG TAB PO PRN (23:14)
[2024-03-20] MEDS ORDERED: SUCRALFATE 1 GM TAB PO PRN (23:15)
[2024-03-20] MEDS ORDERED: LORazepam 0.5 MG TAB PO PRN (23:15)
[2024-03-20] MEDS ORDERED: PSYLLIUM or GUAR GUM FIBER 4GM PACKET PO PRN (23:21)
--- OUTSIDE RECORDS SUMMARY | 2024-03-20 23:31 | External Medical Summary | Summary of Care ---
Author Name Unknown Organization [facility] Address [address] [place] [address] Phone [phone] Care Team Providers Care Solution Strategist Name Role Phone Demetrio Mills MD Primary Care Provider [phone] Reason for Referral * Precert (Diagnostic Medical) (Within 10 days (routine)) - Authorized Specialty Diagnoses / Procedures Referred By Contac t Referred To Contact Cardiac Studies Diagnoses Nonrheumatic mitral valve regurgitation Procedures ECHO, COMPLETE (2D), TRANS-THORACIC Demetrio Mills MD [address] [place] [address] Phone: tel: fax: Referral ID Status Reason Start Date Expiration Date V isits Requested Visits Authorized [id number] Authorized Precert 02/12/2024 999 999 Reason for Visit * Reason Comments Acute Patient is experienc ing bouts of nausea and fatigue on occasion, has been ongoing for a while. Encounter Details Date Type Department Care Team (Late st Contact Info) Description 02/12/2024 10:00 AM EST Office Visit Cristina Rodriguez [address] [place] [address] Demetrio Mills MD [address] [place] [address] Nonrheumatic mitral valve regurgitation*; Nausea; Malaise and fatigue Allergies No known active allergiesdocumented as of this encounter (statuses as of 03/16/2024) Medications METAMUCIL 48.57 % PO POWD one heaping teaspoon daily as needed Active Acetaminophen 325 MG Oral Tablet Take 2 Tablets by mouth every 6 hours as needed. Active Vitamin D3 25 MCG (1000 UT) Oral Capsule (Cholecalcifero l) Take 1 Capsule by mouth in the morning. Active Ondansetron HCl 4 MG Oral TabletIndicatio ns:Nausea and vomiting, unspecified vomiting type Take 1 Tablet by mouth every 6 hours as needed for Nausea. 30 Tablet 4 Active Fluticasone Propionate 50 MCG/ACT Nasal Suspension (Flonase) Administer 2 Sprays into each nostril in the morning. 16 g 1 4 03/04/19 25 Discontin ued(Medic ation List Clean Up) Doxycycline Hyclate 100 MG Oral CapsuleIndicati ons:Tick bite of thoracic wall, unspecified whether front or back, initial encounter Take 2 Capsules by mouth once for 1 dose. For a tick bite 2 Capsule 4 02/24/20 24 Discontin ued(Medic ation List Clean Up) documented as of this encounter (statuses as of 03/16/2024) Active Problems Problem Noted Date Diagnosed Date Hypertension goal BP (blood pressure) < 140/90 0 04/17/2023 Chronic kidney disease, stage 3a 07/05/2020 Overview: Per CKD protocol Hx of actinic keratosis 11/26/2019 Nonallergic rhinitis 05/14/2018 Deviated nasal septum 02/06/2018 Gastroesophageal reflux disease 06/11/2017 Enlarged LA (left atrium) 03/16/2014 Symptomatic PVCs 03/16/2014 APC (atrial premature contractions) 03/16/2014 Personal history of malignant neoplasm of skin 0 08/31/2008 Overview (11/30/2021): BCC L upper back 11/2020, BCC L nasal sidewall 06/2019, BCC L posterior auricular and R [id number],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, BCC midchest unknown year Irritable bowel syndrome documented as of this encounter (statuses as of 03/16/2024) Resolved Problems Problem Noted Date Diagnosed Date Resolved Date Rhinitis, nonallergic 02/06/20182018 Sore throat, chronic 06/20/2017 019 Kidney disease, chronic, sta ge III (GFR 30-59 ml/min) 07/02/2016 07/07/2020 Overview: Per CKD protocol #1 Bradycardia, sinus 03/16/2014 9 PAT (paroxysmal atrial tachycardia) 03/16/2014 06/20/2017 Strabismus 03/14/2012 05/14/2018 ADVANCE DIRECTIVE INFORMATION 12/14/2009 05/14/2018 Overview (12/14/2009): Yes, Patient instructed to provide copy of advance directive for provider to review and to be scanned into Electronic Medical Record Malaise and fatigue 04/24/19 17 OTHER 03/14/2012 Overview (03/17/2007): Gilbert's disease documented as of this encounter (statuses as of 03/16/2024) Immunizations Name Administration Dates Next Due COVID-19 mRNA, LNP-s, No Pre serve, 2-Dose Series (eSNF) 05/05/2020,04/09/2020 COVID-19, mRNA, LNP-s, PF, B ooster, 100mcg/0.5mg (Moderna) 12/15/2021 Pneumococcal Conjugate Vacc, 13 Valent (Prevnar) 04/11/2015 Pneumococcal Polysaccharide PPV23 (Pneumovax) 04/24/2016 Season Influenza, Quad, PF, Adjuvanted, 65+ Yrs, IM (FLUAD) 12/12/2021 Seasonal Influenza Vac., MDV , IM, 0.5 mL (Fluzone) 11/28/2013,11/08/2012,12/01/2011 11/28/2014 Seasonal Influenza, High Dos e, Trivalent, PF, IM (Fluzone HD) 11/28/2015 Seasonal Influenza, PF, 6 M & above, IM , (FluLaval or Fluzone) 12/07/2019,12/14/2016 Seasonal Influenza, Quadriva lent, No Preserve, IM 11/25/2017,12/06/2014 Seasonal Influenza, Trivalen t, Adjuvanted, 65+ YRS, PF, (Fluad) 12/03/2018 TDAP (age 10 and older)(Boostrix) 04/06/2013 Varicella Zoster Vaccine (Adult) 06/06/2012 Zoster Vaccine Recombinant (Shingrix) 11/25/2020 documented as of this encounter Social History Tobacco Use Types Packs/Day Years Used Date Smoking Tobacco: Never Passive Smoke Exposure: Past Smokeless Tobacco: Never Comments:parents smoked in h is childhood Alcohol Use Standard Drinks/Week Comments Not Currently 0.8 (1 standard drin k = 0.6 oz pure alcohol) he reports no drinking anymore PHQ-2 Answer Date Recorded PHQ Adult Total Score 0 12/25/2023 Hunger Vital Sign Answer Date Recorded Within the past 12 months, y ou worried that your food would run out before you got the money to buy more. Never true 12/25/19 24 Within the past 12 months, t he food you bought just didn't last and you didn't have money to get more. Never true 12/25/2023 Childcare Answer Date Recorded Do you feel overwhelmed with taking care of a child, family member or friend? No 12/25/2023 Does your family need help f inding childcare? (Household - for ages 0-17 years) Not on file 12/25/2023 Clothing Answer Date Recorded Have you been unable to get clothing when it was really needed? No 12/25/2023 Is your family able to get c lothes or diapers when needed? (Household - for ages 0-17 years) Not on file 12/25/2023 Personal Safety Answer Date Recorded Do you feel unsafe or have concerns for your saf ety? No 12/25/2023 Do you have concerns for you r family's safety? (Household - for ages 0-17 years) Not on file 12/25/2023 Utilities Answer Date Recorded Do you have trouble paying y our heating, water, or electric bill? No 12/25/2023 Is your family able to pay t he heat, water, or electric bill? (Household - for ages 0-17 years) Not on file 12/25/2023 Does your family have access to good internet? (Household - for ages 0-17 years) Not on file 12/25/2023 Employment Status Answer Date Recorded Are you unemployed or without regular income? No 12/25/2023 Does the household have a re gular source of income? (Household - for ages 0-17 years) Not on file 12/25/2023 Social Connections Answer Date Recorded How often do you feel lonely or isolated from th ose around you? Never 12/25/2023 Financial Resource Strain Answer Date R ecorded Do you have any trouble payi ng for your medications, or do you think you might in the future? No 12/25/2023 Does your family have troubl e paying for medicine? (Household - for ages 0-17 years) Not on file 12/25/2023 Transportation Needs Answer Date Record ed Do you have trouble getting a ride to medical visits or work? (Adult - for ages 18 years and over) Not on file 12/25/2023 Does your family have a hard time getting a ride to doctors visits? (Household - for ages 0-17 years) Not on file 12/25/2023 Has lack of transportation k ept you from medical appointments, meetings, work, or from getting things needed for daily living? Check all that apply. No 12/25/2023 Do you (or your family) have trouble finding or paying for a ride (transportation)? (Household - for ages 0-17 years) Not on file 12/25/2023 Housing Stability Answer Date Recorded Do you currently live in a s helter or have no steady place to sleep at night? No 12/25/2023 Do you think you are at risk of becoming homeless? (Adult - for ages 18 years and over) Not on file 12/25/2023 Does your family worry about paying for your home or becoming homeless? (Household - for ages 0-17 years) Not on file 1 Are you homeless or worried that you might be in the future? No 12/25/2023 Are you (or your family) reginald eless or worried that you might be in the future? (Household - for ages 0-17 years) Not on file Food Insecurity Answer Date Recorded Do you need food for this week? No 12/25/2023 Are you able to get enough f ood for your family? (Household - for ages 0-17 years) Not on file 12/25/2023 Does your family need food t his week? (Household - for ages 0-17 years) Not on file 12/25/2023 Do you always have enough fo od for your family? (Household - for ages 0-17 years) Not on file 12/25/2023 Sex and Gender Information Value Date Recorded Sex Assigned at Male 05/14/2018 7:34 AM EDT Legal Sex Male 5:15 AM EST Gender Identity Male 05/14/2018 7:34 AM EDT Sexual Orientation Straight 05/14/2018 7: 34 AM EDT documented as of this encounter Last Filed Vital Signs Vital Sign Reading Time Taken Comments Blood Pressure 119/68 02/12/2024 9:58 AM EST Pulse 62 02/12/2024 9:58 AM EST Temperature 36.5 C (97.7 F) 02/12/2024 9:58 AM ES T Respiratory Rate 16 02/12/2024 9:58 AM EST Oxygen Saturation 96% 02/12/2024 9:58 AM EST Inhaled Oxygen Concentration - - Weight 86.3 kg (190 lb 3.2 oz) 02/12/2024 9:58 A M EST Height 190.5 cm (6' 3") 02/12/2024 9:58 AM EST Body Mass Index 23.77 02/12/2024 9:58 AM EST documented in this encounter Progress Notes * Demetrio Mills MD - 03/16/2024 9:50 PM EST Subjective: Adria Mantilla Jr. is a 74 year old male here today for Chief Complaint Patient presents with Acute Patient is experiencing bouts of nausea and fatigue on occasion, has been ongoing for a while. 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, repeat colonoscopy in 1 year, stool samples negative for infection Bradycardia, sinus 03/16/2014 Enlarged LA (left atrium) 03/16/2014 GERD (gastroesophageal reflux disease) Irritable bowel syndrome [place] Malaise and fatigue OTHER Gilbert's disease Personal history of malignant neoplasm of skin 08/31/2008 History of Basal Cell Carcinoma mid chest - unknown year; 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 Strabismus 03/14/2012 Past Surgical History: Procedure Laterality Date COLONOSCOPY 2003 normal COLONOSCOPY 10/2000 2 adenoma COLONOSCOPY 2008 normal COLONOSCOPY, DIAGNOSTIC (RECTUM) 12/08/2012 tubulovillous adenomas, repeat colonoscopy in 1 year, stool samples negative for infection COLONOSCOPY, DIAGNOSTIC (RECTUM) 12/11/2013 adenomatous polyps, repeat 3 yrs/COLONOSCOPY FLEXIBLE PROXIMAL DIAGNOSTIC performed by Stone Stokes MD at ENDOSCOPY [facility] COLONOSCOPY, DIAGNOSTIC (RECTUM) 12/05/2016 adenomatous polyps, repeat 3 yrs/COLONOSCOPY FLEXIBLE PROXIMAL DIAGNOSTIC performed by Stone Stokes MD at ENDOSCOPY [facility] COLONOSCOPY, DIAGNOSTIC (RECTUM) 12/11/2019 adenomatous polyp, repeat 5 yrs / COLONOSCOPY FLEXIBLE PROXIMAL DIAGNOSTIC performed by Hnag Bergman MD at ENDOSCOPY [facility] EGD, FLEXIBLE, DIAGNOSTIC 07/21/2021 small HH, normal scope / biopsies normal / ESOPHAGOGASTRODUODENOSCOPY (EGD), FLEXIBLE, TRANSORAL, DIAGNOSTIC performed by Hang Bergman MD at ENDOSCOPY [facility] EGD, FLEXIBLE, DIAGNOSTIC 06/12/2023 small hiatal hernia/biopsies normal/ESOPHAGOGASTRODUODENOSCOPY (EGD), FLEXIBLE, TRANSORAL, DIAGNOSTIC performed by Angel Garcia MD at ENDOSCOPY [facility] EGD, FLEXIBLE, W/BIOPSY 2004 REMOVAL OF TONSILS, UNDER AGE 12 Review of patient's allergies indicates: No Known Allergies Current Outpatient Medications Medication Sig Dispense Refill Acetaminophen 325 MG Oral Tablet Take 2 Tablets by mouth every 6 hours as needed. Ondansetron HCl 4 MG Oral Tablet Take 1 Tablet by mouth every 6 hours as needed for Nausea. 30 Tablet 0 METAMUCIL 48.57 % PO POWD one heaping teaspoon daily as needed Vitamin D3 25 MCG (1000 UT) Oral Capsule (Cholecalciferol) Take 1 Capsule by mouth in the morning. Metoprolol Succinate ER 25 MG Oral Tablet Extended Release 24 Hour (toPROL XL) Take 1 Tablet by mouth in the morning. 30 Tablet 5 LORazepam 0.5 MG Oral Tablet (Ativan) Take 1 Tablet by mouth 3 times a day as needed for Anxiety. 10 Tablet 0 Sucralfate 1 GM Oral Tablet (Carafate) Take 1 Tablet by mouth 3 times a day as needed for Heartburn. 120 Tablet 3 Omeprazole Magnesium 20 MG Oral Tablet Delayed Release (PriLOSEC OTC) Take 2 Tablets by mouth in the morning and 2 Tablets in the evening. 180 Tablet 5 rifAXIMin 550 MG Oral Tablet (Xifaxan) Take 1 Tablet by mouth in the morning and 1 Tablet at noon and 1 Tablet before bedtime. Do all this for 14 days. 42 Tablet 0 No current facility-administered medications for this visit. Objective: BP 119/68 | Pulse 62 | Temp 97.7 F (36.5 C) (Tympanic) | Resp 16 | Ht 6' 3" (1.905 m) | Wt 190 lb 3.2 oz (86.3 kg) | SpO2 96% | BMI 23.77 kg/m | BSA 2.14 m GEN: NAD HEENT: Benign NECK: Supple with no LAD, TM, JVD CHEST: CTA B CV: RRR ABD: Soft, NT/ND, No HSM, NABS EXT: No c,c,e Assessment and Plan: Nonrheumatic mitral valve regurgitation (Primary) - ECHO, COMPLETE (2D), TRANS-THORACIC; Future; Expected date: 02/12/2024 Nausea - TESTOSTERONE: TOTAL, FREE AND BIOAVAILABLE; Future; Expected date: 02/12/2024 - CBC WITH WBC DIFFERENTIAL; Future; Expected date: 02/12/2024 - ERYTHROCYTE SEDIMENTATION RATE (ESR); Future; Expected date: 02/12/2024 - TSH WITH FREE T4 IF INDICATED; Future; Expected date: 02/12/2024 - COMPREHENSIVE METABOLIC PANEL; Future; Expected date: 02/12/2024 - LIPASE; Future; Expected date: 02/12/2024 Malaise and fatigue - TESTOSTERONE: TOTAL, FREE AND BIOAVAILABLE; Future; Expected date: 02/12/2024 - CBC WITH WBC DIFFERENTIAL; Future; Expected date: 02/12/2024 - ERYTHROCYTE SEDIMENTATION RATE (ESR); Future; Expected date: 02/12/2024 - TSH WITH FREE T4 IF INDICATED; Future; Expected date: 02/12/2024 - COMPREHENSIVE METABOLIC PANEL; Future; Expected date: 02/12/2024 - LIPASE; Future; Expected date: 02/12/2024 Check-out note: echo 28 min with pt and chart review Demetrio Mills MD documented in this encounter Nursing Notes * Gisel Vega MED ASSIST - 02/12/2024 10:02 AM EST The patient has been properly identified by confirmation of name and date of . Chief Complaint Patient presents with Acute Patient is experiencing bouts of nausea and fatigue on occasion, has been ongoing for a while. documented in this encounter Plan of Treatment Upcoming Encounters Date Type Department Care Team (Latest Contact Info) Description 04/03/2024 10:15 AM EST Hospital Encounter ENDO [facility], Endoscopy Room [facility] [address] [place] [phone] Angel Garcia MD [address] [place] [address] 04/03/2024 10:15 AM EST - 04/03/2024 10:45 AM EST Surgery ENDO [facility], Endoscopy Room [facility] [address] [place] [phone] Angel Garcia MD [address] [place] [address] COLONOSCOPY FLEXIBLE PROXIMAL DIAGNOSTIC 04/08/2024 7:00 AM EST Office Visit Cardiology [facility] [place] [address] [place] [address] [facility] Card[facility] Recovery [facility] [[email or web address] [address] [place] [address] 04/08/2024 8:00 AM EST Appointment Cardiac Studies [facility] [address] [place] [address] 04/08/2024 9:00 AM EST Hospital Encounter CRS Waiting [facility], Cardiac Recovery Suite Waiting Unit, [address] [place] [phone] Tyson Lin, DO [address] [place] [address] 04/08/2024 9:00 AM EST - 04/08/2024 10:00 AM EST Surgery CRS Waiting [facility], Cardiac Recovery Suite Waiting Unit, H [address] [place] [address] Tyson Lin DO [address], [place] [id number] CORONARY ANGIOGRAPHY W/LEFT HEART CATH 04/13/2024 1:30 PM EST Office Visit Cardiothoracic Surg [facility] [address], [place] [phone] Orville Gambino MD [address] [place] [address] 04/13/2024 2:30 PM EST Office Visit Cardiology [facility] [place] [address] [place] [address] Osbaldo Wallace MD [address] [place] [address] 08/04/2024 9:00 AM EDT Office Visit [address] [phone] Demetrio Mills MD [address] [place] [address] 08/18/2024 11:00 AM EDT Hospital Encounter ENDO [facility], Endoscopy [address] [phone] Ema Taylor MD [address] [place] [address] 08/18/2024 11:00 AM EDT - 08/18/2024 11:30 AM EDT Surgery [facility]O [facility], Endoscopy [address] [place] [address] Ema Taylor MD [address] [place] [address] ESOPHAGOGASTRODUODENOSCOPY (EGD), FLEXIBLE, TRANSORAL, DIAGNOSTIC 12/22/2024 9:40 AM EDT Office Visit Dermatology [facility] [address] [place] [phone] Angel Castillo PA-C [address] [place] [phone] Scheduled Procedures Name Priority Associated Diagnoses Date/Ti me COLONOSCOPY FLEXIBLE PROXIMA L DIAGNOSTIC Recall History of colon polyps 04/03/2024 10:15 AM EST CORONARY ANGIOGRAPHY W/LEFT HEART CATH Severe mitral regurgitation 04/08/2024 9:00 AM EST ESOPHAGOGASTRODUODENOSCOPY ( EGD), FLEXIBLE, TRANSORAL, DIAGNOSTIC GERD (gastroesophageal reflux disease) 08/18/2024 11:00 AM EDT GASTRO REFLUX TEST WITH MUCO LATRICE TELEMETRY PH ELECTRODE GERD (gastroesophageal reflux disease) 08/18/2024 11:00 AM EDT Health Maintenance Due Date Last Done Comments Cologuard 1995 Fecal Occult Blood Test 1995 Sigmoidoscopy 1995 Adult Wellness Visit 02/02/2016 Albumin/Creatinine Ratio 08/11/2023 08/10/2022 COVID-19 Vaccine ( season) 2023 12/15/2021, 05/05/2020, 04/09/2020 Influenza Vaccine (FLU shot) (#1) 2023 12/06/2022, 12/12/2021, 12/07/2019, Additional history exists GFR 08/13/2024 02/13/2024, 11/26, 06/07/2023, Additional history exists Colonoscopy 12/10/2024 12/11/2019, 11/25, 12/05/2016, Additional history exists Colorectal Cancer Screening 12/10/2024 CKD PHOS USE SMARTSET 47619 12/19/202411/26, 08/10/2022, 04/26/2021, Additional history exists Depression Screening 12/24/2024 12/25/2023 CKD HGB USE SMARTSET 54935 02/12/202502/12, 02/13/2024, 12/20/2023, Additional history exists Lipid Panel 08/11/2027 08/10/2022, 03/0 03/2021, 09/22/2020, Additional history exists DTap/Tdap Vaccines Discontinued 04/06/2013 Pneumococcal Vaccine: 50+ Years Completed 04/24/2016, 04/11/2015 RETIRED - COLONOSCOPY-EVERY 5 YRS AGES 18-100 Discontinued 12/11/2019, 12/11/2019, 12/05/2016, Additional history exists Zoster Vaccines Completed 11/25/2020, 08/26, 06/06/2012 HPV (Gardasil) Vaccine Aged Out No lo nger eligible based on patient's age to complete this topic Hepatitis B Vaccine Aged Out No longe r eligible based on patient's age to complete this topic MENINGOCOCCAL (MENACTRA/MENVEO) Aged Out No longer eligible based on patient's age to complete this topic documented as of this encounter Medical Devices Not on filedocumented as of this encounter Results * ECHO, COMPLETE (2D), TRANS-THORACIC (02/17/2024 7:45 AM EST) LEFT VENTRICULAR EJECTION FRACTION 60 % [facility] 02/17/2024 6:53 AM EST us Demetrio Mills MD ECHOCARDIOLOGY Final Resu lt [facility] * LIPASE (02/13/2024 8:49 AM EST) Lipase 53 13 - 60 U/L 02/13/2024 2:34 PM EST [facility] Blood Venous blood specimen / Unknown Venipuncture / Unknown 02/13/2024 8:49 AM EST 02/13/2024 8:49 AM EST us Demetrio Mills MD LAB BLOOD ORDERABLES Final Result [facility] [address] [place] [address] * (ABNORMAL) COMPREHENSIVE METABOLIC PANEL (02/13/2024 8:49 AM EST) BUN 18 6 - 20 mg/dL 02/13/2024 2:34 PM EST [facility] CREATININE 1.4(H) 0.6 - 1.2 mg/dL 02/13/2024 2:34 PM EST [facility] EGFR 55(L) >=60 mL/min 02/13/2024 2:34 PM EST [facility] Comment:eGFR is calculated b ased on the CKD-EPI 2020 equation. SODIUM 139 135 - 146 mmol/L 02/13/2024 2:34 PM EST [facility] POTASSIUM 4.1 3.5 - 5.1 mmol/L 02/13/2024 2:34 PM EST [facility] CHLORIDE 103 98 - 107 mmol/L 02/13/2024 2:34 PM EST [facility] CO2 25 22 - 32 mmol/L 02/13/2024 2:34 PM EST [facility] ANION GAP 11 7 - 15 mmol/L 02/13/2024 2:34 PM EST [facility] GLUCOSE 105 70 - 120 mg/dL 02/13/2024 2:34 PM EST [facility] Albumin 3.9 3.8 - 5.0 g/dL 02/13/2024 2:34 PM EST [facility] AST 22 10 - 50 U/L 02/13/2024 2:34 PM EST [facility] Alkaline Phosphatase 82 35 - 130 U/L 02/13/2024 2:34 PM EST [facility] Bilirubin, Total 0.7 <=1.2 mg/dL 02/13/2024 2:34 PM EST [facility] CALCIUM 8.7 8.4 - 10.2 mg/dL 02/13/2024 2:34 PM EST [facility] Protein 6.7 6.0 - 8.3 g/dL 02/13/2024 2:34 PM EST [facility] ALT 23 10 - 50 U/L 02/13/2024 2:34 PM EST LABORATORY [facility] Blood Venous blood specimen / Unknown Venipuncture / Unknown 02/13/2024 8:49 AM EST 02/13/2024 8:49 AM EST us Demetrio Mills MD LAB BLOOD ORDERABLES Final Result Performing Organization Address City/[facility] Co de Phone Number LABORATORY [facility] [address] [place] [address] * TSH WITH FREE T4 IF INDICATED (02/13/2024 8:49 AM EST) TSH 2.56 0.27 - 4.20 uIU/mL 02/13/2024 3:02 PM EST LABORATORY [facility] Blood Venous blood specimen / Unknown Venipuncture / Unknown 02/13/2024 8:49 AM EST 02/13/2024 8:49 AM EST us Demetrio Mills MD LAB BLOOD ORDERABLES Final Result Performing Organization Address [facility] Co de Phone Number LABORATORY [facility] [address] [place] [address] * ERYTHROCYTE SEDIMENTATION RATE (ESR) (02/13/2024 8:49 AM EST) ESR 13 <20 mm/hour 02/13/2024 3:59 PM EST LABORATORY [facility] Blood Venous blood specimen / Unknown Venipuncture / Unknown 02/13/2024 8:49 AM EST 02/13/2024 8:49 AM EST us Demetrio Mills MD LAB BLOOD ORDERABLES Final Result Performing Organization Address City/[facility] Co de Phone Number LABORATORY [facility] [address] [place] [address] * TESTOSTERONE: TOTAL, FREE AND BIOAVAILABLE (02/13/2024 8:49 AM EST) Albumin 3.9 3.8 - 5.0 g/dL 02/13/2024 3:02 PM EST [facility] Sex Hormone Binding Globulin 58 12 - 91 nmol/L 02/13/2024 3:02 PM EST [facility] Testosterone, Total 390.5 193.0 - 740.0 ng/dL 02/13/2024 3:02 PM EST [facility] Free Testosterone, Calculation 55.8 35.0 - 130.0 pg/mL 02/13/2024 3:02 PM EST [facility] Bioavailable Testosterone Calculation 119.1 79.0 - 335.0 ng/dL 02/13/2024 3:02 PM EST LABORATORY [facility] Blood Venous blood specimen / Unknown Venipuncture / Unknown 02/13/2024 8:49 AM EST 02/13/2024 8:49 AM EST us Demetrio Mills MD LAB BLOOD ORDERABLES Final Result LABORATORY [facility] [address] [place] [address] documented in this encounter Visit Diagnoses Diagnosis Nonrheumatic mitral valve regurgitation- Primary Nausea Nausea alone Malaise and fatigue Other malaise and fatigue History of colon polyps Personal history of colonic polyps Severe mitral regurgitation Mitral valve disorders GERD (gastroesophageal reflux disease) Esophageal reflux documented in this encounter Care Teams Solution Strategist Relationship Specialty Start Date End Date Demetrio Mills MD PCP - General Family Medicine 01/03/12 03/03/24 documented as of this encounter
--- OUTSIDE RECORDS SUMMARY | 2024-03-20 23:32 | External Medical Summary | Summary of Care ---
Author Name Unknown Organization [facility] Address [address] [facility] [place] [address] Phone [phone] Care Team Providers Care Ticket Agent Name Role Phone Roger Gonsalves MD Primary Care Provider [phone] Reason for Visit * Reason Onset Date Comments Order Request 03/12/2024 Encounter Details Date Type Department Care Team (Late st Contact Info) Description 03/12/2024 Telephone Gastroenterology, [facility] [address] [place] [address] Angel Garcia MD [address] [place] [address] Order Request Allergies No known active allergiesdocumented as of this encounter (statuses as of 03/12/2024) Medications METAMUCIL 48.57 % PO POWD one heaping teaspoon daily as needed Active Acetaminophen 325 MG Oral Tablet Take 2 Tablets by mouth every 6 hours as needed. Active Vitamin D3 25 MCG (1000 UT) Oral Capsule (Cholecalciferol ) Take 1 Capsule by mouth in the morning. Active Ondansetron HCl 4 MG Oral TabletIndication s:Nausea and vomiting, unspecified vomiting type Take 1 Tablet by mouth every 6 hours as needed for Nausea. 30 Tablet 4 Active Metoprolol Succinate ER 25 MG Oral Tablet Extended Release 24 Hour (toPROL XL) Take 1 Tablet by mouth in the morning. 30 Tablet 5 4 Active LORazepam 0.5 MG Oral Tablet (Ativan)Indicati ons:Anxiety Take 1 Tablet by mouth 3 times a day as needed for Anxiety. 10 Tablet 5 Active Sucralfate 1 GM Oral Tablet (Carafate) Take 1 Tablet by mouth 3 times a day as needed for Heartburn. 120 Tablet 3 5 Active Omeprazole Magnesium 20 MG Oral Tablet Delayed Release (PriLOSEC OTC) Take 2 Tablets by mouth in the morning and 2 Tablets in the evening. 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, BCC midchest unknown year Irritable bowel syndrome documented as of this encounter (statuses as of 03/12/2024) Resolved Problems Problem Noted Date Diagnosed Date [...] as of this encounter (statuses as of 03/12/2024) Immunizations Name Administration Dates Next Due COVID-19 mRNA, LNP-s, No Pre serve, 2-Dose Series (Pfizer) 05/05/2020,04/09/2020 COVID-19, mRNA, LNP-s, PF, B ooster, [...] AM EDT documented as of this encounter Miscellaneous Notes * Telephone Encounter - Dionne Trinidad OSA - 03/12/2024 1:04 PM EST Pt is scheduled for a colonoscopy Please place an order for History of colon polyps [Z86.0100] Thank you MAKI Padilla 03/12/2024 1:05 PM documented in this encounter Plan of Treatment Upcoming Encounters Date Type Department Care Team (Latest Contact Info) Description 04/01/2024 10:15 AM EST Hospital Encounter ENDO [facility], Endoscopy Room [facility] [address] [place] [address] Angel Garcia MD [address] [place] [address] 04/01/2024 10:15 AM EST - 04/01/2024 10:45 AM EST Surgery ENDO [facility], Endoscopy Room [facility] [address] [place] [address] Angel Garcia MD [address] [place] [address] COLONOSCOPY FLEXIBLE PROXIMAL DIAGNOSTIC 04/08/2024 7:00 AM EST Office Visit Cardiology [facility] [place] [address] [place] [address] [facility] Cardiac Recovery [facility] [address] [place] [address] 04/08/2024 8:00 AM EST Appointment Cardiac Studies [facility], [place] [address] [place] [address] 04/08/2024 9:00 AM EST Hospital Encounter CRS Waiting [facility], Cardiac Recovery Suite Waiting Unit, [address] [place] [address] Tyson Lin, [address] [place] [address] 04/08/2024 9:00 AM EST - 04/08/2024 10:00 AM EST Surgery CRS Waiting [facility], Cardiac Recovery Suite Waiting Unit, H [address] [place] [address] Tyson Lin DO [address] [place], [place] [phone] CORONARY ANGIOGRAPHY W/LEFT HEART CATH 04/13/2024 1:30 PM EST Office Visit Cardiothoracic Surg [facility] Advanced [facility] [address] [place], [place] [phone] Orville Gambino MD [address] [place] [address] 04/13/2024 2:30 PM EST Office Visit Cardiology [facility] [address] [place] [address] Osbaldo Wallace MD [address] [place] [address] 08/04/2024 9:00 AM EDT Office Visit [facility] [address] [place] [address] Demetrio Mills MD [address] [place] [address] 08/18/2024 11:00 AM EDT Hospital Encounter ENDO [facility], Endoscopy [address] [address] Ema Taylor MD 132 [facility] [place] [address] 08/18/2024 11:00 AM EDT - 08/18/2024 11:30 AM EDT Surgery ENDO [facility], Endoscopy [address] [phone] Ema Taylor MD [address] [place] [address] ESOPHAGOGASTRODUODENOSCOPY (EGD), FLEXIBLE, TRANSORAL, DIAGNOSTIC 12/22/2024 9:40 AM EDT Office Visit Dermatology [facility] [address] [place] [address] Angel Castillo PA-C [address] [place] [address] Scheduled Procedures Name Priority Associated Diagnoses Date/Ti me COLONOSCOPY FLEXIBLE PROXIMA L DIAGNOSTIC Recall History of colon polyps 04/01/2024 10:15 AM EST CORONARY ANGIOGRAPHY W/LEFT HEART [...] Cancer Screening 12/10/2024 CKD PHOS USE SMARTSET 68179 12/19/2024 10/2 06/2023, 08/10/2022, 04/26/2021, Additional history exists Depression Screening 12/24/2024 12/25/2023 CKD HGB USE SMARTSET 38675 02/12/202502/12, 02/13/2024, 12/20/2023, Additional history exists Lipid Panel 08/11/2027 08/10/2022, 03/03/2021, 09/22/2020, Additional history exists DTap/Tdap Vaccines Discontinued [...] Not on filedocumented as of this encounter Care Teams Ticket Agent Relationship Specialty Start Date End Date June, Roger Lake MD [address] [place] [address] PCP - General Family Medicine 03/04/24 documented as of this encounter
--- OUTSIDE RECORDS SUMMARY | 2024-03-20 23:32 | External Medical Summary | Summary of Care ---
Author Name Unknown Organization [facility] Address [address] [facility] [place] [address] Phone [phone] Care Team Providers Care Financial Planning Consultant Name Role Phone Roger Gonsalves MD Primary Care Provider [phone] Reason for Visit * Reason Onset Date Comments Medication Pre-auth 03/12/2024 Encounter Details Date Type Department Care Team (Late st Contact Info) Description 03/12/2024 Telephone Gastroenterology, [facility] [address] [place] [address] Araceli Arriaga CRNP [address] [place] [address] Medication Pre-auth Allergies No known active allergiesdocumented as of [...] the evening. 180 Tablet 5 5 Active rifAXIMin 550 MG Oral Tablet (Xifaxan)Indicat ions:Small intestinal bacterial overgrowth (SIBO),Intestina l bacterial overgrowth Take 1 Tablet by mouth in the morning and 1 Tablet at noon and 1 Tablet before bedtime. Do all this for 14 days. 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 Medication/Disease State Information: Medication: Xifaxan 550 mg 1 tab 3 times a day Diagnosis (including ICD-10): + SIBO K63.8219 Site of care: Self-administered - route pre-cert request to [id number] Office Information: Prescriber: Araceli Arriaga Pt has a positive hydrogen breath test sanned under media. Please attach to auth. 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 Recommend treatment with Xifaxan, 500 mg three times daily times 14 days. KARL Whitaker * Telephone Encounter - Rodolfo Tsang LPN - 03/12/2024 11:59 AM EST [facility] called and said the pt's hydrogen breath test is complete and in [employer]. HIM [id number] documented in this encounter Plan of Treatment Upcoming Encounters Date Type Department Care Team (Latest Contact Info) Description 04/01/2024 10:15 AM EST Hospital Encounter ENDO [facility], Endoscopy Room [facility] [address] [place] [address] Angel Garcia MD [address] [place] [address] 04/01/2024 10:15 AM EST - 04/01/2024 10:45 AM EST Surgery ENDO [facility], Endoscopy Room [facility] [address] [place] [address] Angel Garcia MD [address] [place] [address] COLONOSCOPY FLEXIBLE PROXIMAL DIAGNOSTIC 04/08/2024 7:00 AM EST Office Visit Cardiology [facility], [place] [address] [place] [address] [facility] Cardiac Recovery [place] [address] [place] [address] 04/08/2024 8:00 AM EST Appointment Cardiac Studies [place] [address] [place] [address] 04/08/2024 9:00 AM EST Hospital Encounter CRS Waiting [facility], Cardiac Recovery Suite Waiting Unit, H [address] [place] [address] Tyson Lin, [address] [place] [address] 04/08/2024 9:00 AM EST - 04/08/2024 10:00 AM EST Surgery CRS Waiting [facility], Cardiac Recovery Suite Waiting Unit, H [address] [place] [address] Tyson Lin DO [address] [place] [address] CORONARY ANGIOGRAPHY W/LEFT HEART CATH 04/13/2024 1:30 PM EST Office Visit Cardiothoracic Surg [facility], [place] [address] [place] [address] Orville Gambino MD [address] [place] [address] 04/13/2024 2:30 PM EST Office Visit Cardiology [facility] [address] [place] [address] Osbaldo Wallace MD [address] [place] [address] 08/04/2024 9:00 AM EDT Office Visit [facility] [address] [place] [phone] Demetrio Mills MD [address] [place] [address] 08/18/2024 11:00 AM EDT Hospital Encounter ENDO [facility], Endoscopy [address] [phone] Ema Taylor MD [address] [place] [address] 08/18/2024 11:00 AM EDT - 08/18/2024 11:30 AM EDT Surgery ENDO [facility], Endoscopy [address] [phone] Ema Taylor MD [address] [place] [address] ESOPHAGOGASTRODUODENOSCOPY (EGD), FLEXIBLE, TRANSORAL, DIAGNOSTIC 12/22/2024 9:40 AM EDT Office Visit Dermatology [facility] [address] [place] [address] Angel Castillo PA-C [address] [place] [address] Scheduled Procedures Name Priority Associated Diagnoses [...] Cancer Screening 12/10/2024 CKD PHOS USE SMARTSET 27845 12/19/202411/26, 08/10/2022, 04/26/2021, Additional history exists Depression Screening 12/24/2024 12/25/2023 CKD HGB USE SMARTSET 87845 02/12/202502/12, 02/13/2024, 12/20/2023, Additional history exists Lipid Panel 08/11/2027 08/10/2022, 0303/2021, 09/22/2020, Additional history exists DTap/Tdap Vaccines Discontinued [...] Not on filedocumented as of this encounter Visit Diagnoses Diagnosis Small intestinal bacterial overgrowth (SIBO)- Primary Intestinal bacterial overgrowth Other specified disorder of intestines History of colon polyps Personal history of colonic polyps Severe mitral regurgitation Mitral valve disorders GERD (gastroesophageal reflux disease) Esophageal reflux documented in this encounter Care Teams Financial Planning Consultant Relationship Specialty Start Date End Date June, Roger Lake MD [address] [facility] [place] [address] PCP - General Family Medicine 03/04/24 documented as of this encounter
--- OUTSIDE RECORDS SUMMARY | 2024-03-20 23:32 | External Medical Summary | Summary of Care ---
Author Name Unknown Organization [facility] Address [address] [place] [address] Phone [phone] Care Team Providers Care Machine Plug Shaper Name Role Phone Pancho Johnson MD Primary Care Provider [phone] Reason for Referral * Ancillary Services (Within 10 days (routine)) - Authorized Specialty Diagnoses / Procedures Referred By Contac t Referred To Contact Gastroenterology Diagnoses History of colon polyps Pancho Johnson MD [address] [place] [address] [place] [address] Phone: tel: fax: Referral ID Status Reason Start Date Expiration Date Visits Requested Visits Authorized [id number] Authorized Ancillary Services Required 03/13/2024 999 999 Question Answer Referral Priority Within 10 days (routine) Where should this appointment be scheduled? [facility] Comments ALERT: Do not order for pediatric patients (18 years or younger). Cancel off screen and order PEDS GASTROENTEROLOGY CONSULT (Type: 1 visit only-Evaluate and Treat) The following Pt. Instructions are available: - Gastro Colonoscopy Prep Instructions [95881] - Gastro Colonoscopy Prep Instructions (Hungarian Version) [[id number]] Go to the Pt. Instructions section within the Visit Navigator to access. Colonoscopy ASGE Guidelines: Postadenoma resection: 1-2 tubular adenomas of less than 1 cm (5 yr intervals) ADDITIONAL INFORMATION 1. Is the patient on Coumadin? No 2. Is the patient on Pradaxa? No Reason for Visit * Reason Onset Date Comments Order Request 03/12/2024 Encounter Details Date Type Department Care Team (Late st Contact Info) Description 03/12/2024 Telephone Gastroenterology, [facility] [address] [place] [address] Angel Garcia MD [address] [place] [address] Order Request Allergies No known active allergiesdocumented as of this encounter (statuses as of 03/13/2024) Medications METAMUCIL 48.57 % PO POWD one [...] as of this encounter (statuses as of 03/13/2024) Active Problems Problem Noted Date Diagnosed Date [...] 06/2019, BCC L posterior auricular and R [id number],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 (Household - for ages [...] as of this encounter Miscellaneous Notes * Addendum Note - Pancho Johnson MD - 03/13/2024 1:06 PM ESTAddended by: PANCHO JOHNSON on: 03/13/2024 01:06 PM Modules accepted: Orders * Telephone Encounter - Pancho Johnson MD - 03/13/2024 1:05 PM EST Order placed. Pancho Johnson MD * Telephone Encounter - Dionne Trinidad OSA - 03/12/2024 1:04 PM EST Pt is scheduled for a colonoscopy Please place an order for History of colon polyps [Z86.0100] Thank you Dionne Trinidad, MAKI 03/12/2024 1:05 PM documented in this encounter Plan of Treatment Upcoming Encounters Date Type Department Care Team (Latest Contact Info) Description 04/01/2024 10:15 AM EST Hospital Encounter ENDO [facility], Endoscopy Room [facility] [address] [place] [phone] Angel Garcia MD [address] [place] [address] 04/01/2024 10:15 AM EST - 04/01/2024 10:45 AM EST Surgery ENDO [facility], Endoscopy Room [facility] [address] [place] [address] Angel Garcia MD [address] [place] [address] COLONOSCOPY FLEXIBLE PROXIMAL DIAGNOSTIC 04/08/2024 7:00 AM EST Office Visit Cardiology [facility] [place] [address] [place] [address] [facility] [address] [place] [address] 04/08/2024 8:00 AM EST Appointment Cardiac Studies [facility] [place] [address] [place] [address] 04/08/2024 9:00 AM EST Hospital Encounter CRS Waiting [facility], Cardiac Recovery Suite Waiting Unit, H [address] [place] [address] Tyson Lin DO [address] [place] [address] 04/08/2024 9:00 AM EST - 04/08/2024 10:00 AM EST Surgery CRS Waiting [facility], Cardiac Recovery Suite Waiting Unit, H [address] [place] [phone] Tyson Lin DO [address] [place] [facility] [place] [address] CORONARY ANGIOGRAPHY W/LEFT HEART CATH 04/13/2024 1:30 PM EST Office Visit Cardiothoracic Surg [facility] [place] [address] [place] [address] Orville Gambino MD [address] [place] [address] 04/13/2024 2:30 PM EST Office Visit Cardiology [facility] [place] [address] [place] [address] Osbaldo Wallace MD [address] [place] [address] 08/04/2024 9:00 AM EDT Office Visit [facility] [address] [place] [address] Demetrio Mills MD [address] [place] [address] 08/18/2024 11:00 AM EDT Hospital Encounter ENDO [facility], Endoscopy [address] [address] Ema Taylor MD [address] [place] [address] 08/18/2024 11:00 AM EDT - 08/18/2024 11:30 AM EDT Surgery ENDO [facility], Endoscopy [address] [address] Ema Taylor MD [address] [place] [address] ESOPHAGOGASTRODUODENOSCOPY (EGD), FLEXIBLE, TRANSORAL, DIAGNOSTIC 12/22/2024 9:40 AM EDT Office Visit Dermatology [address] [address] Angel Castillo PA-C [address] [place] [address] Scheduled Procedures Name Priority Associated Diagnoses Date/Ti [...] (gastroesophageal reflux disease) 08/18/2024 11:00 AM EDT Scheduled Referrals Name Type Priority Associated Diagnoses Orde r Schedule COLONOSCOPY, GI REFERRAL OP Referral Within 10 days (routine) History of colon polyps Ordered: 03/13/2024 Health Maintenance Due Date Last Done Comments [...] Cancer Screening 12/10/2024 CKD PHOS USE SMARTSET 83473 12/19/202411/26, 08/10/2022, 04/26/2021, Additional history exists Depression Screening 12/24/2024 12/25/2023 CKD HGB USE SMARTSET 01537 02/12/202502/12, 02/13/2024, 12/20/2023, Additional history exists Lipid [...] as of this encounter Visit Diagnoses Diagnosis History of colon polyps- Primary Personal history of colonic polyps History of colon polyps Personal history of colonic polyps Severe mitral regurgitation Mitral valve disorders GERD (gastroesophageal reflux disease) Esophageal reflux documented in this encounter Care Teams Machine Plug Shaper Relationship Specialty Start Date End Date June, Pancho Lake MD [address] [place] [address] PCP - General Family Medicine 03/04/24 documented as of this encounter
--- OUTSIDE RECORDS SUMMARY | 2024-03-20 23:32 | External Medical Summary | Summary of Care ---
Author Name Unknown Organization [facility] Address [address] [place] [address] Phone [phone] Care Team Providers Care Assistant Reading Teacher Name Role Phone Roger Gonsalves MD Primary Care Provider [phone] Reason for Visit * Reason Onset Date Comments Imaging Records Request 03/12/2024 Encounter Details Date Type Department Care Team (Late st Contact Info) Description 03/12/2024 Telephone Radiology Film File [address] [place] [address] Support, Imaging Radiology [address] [place] [address] Imaging Records Request Allergies No known active allergiesdocumented as [...] 06/2019, BCC L posterior auricular and R [id number],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 Images pushed to [facility] ([facility]) [employer] account Job ID: [id number], [id number] Associated report(s) not needed. documented in this encounter Plan of Treatment Upcoming Encounters Date Type Department Care Team (Latest Contact Info) Description 04/01/2024 10:15 AM EST Hospital Encounter ENDO [facility], Endoscopy Room [facility] [address] [place] [phone] Angel Garcia MD [address] [place] [address] 04/01/2024 10:15 AM EST - 04/01/2024 10:45 AM EST Surgery ENDO [facility], Endoscopy Room [facility] [address] [place] [address] Angel Garcia MD [address] [place] [address] COLONOSCOPY FLEXIBLE PROXIMAL DIAGNOSTIC 04/08/2024 7:00 AM EST Office Visit Cardiology [facility] [place] [address] [place] [address] [facility] Cardiac Recovery [facility] [address] [place] [address] 04/08/2024 8:00 AM EST Appointment Cardiac Studies [facility] [address] [place], [place] [address] 04/08/2024 9:00 AM EST Hospital Encounter CRS Waiting [facility], Cardiac Recovery Suite Waiting Unit, H [address] [place] [address] Tyson Lin, [address] [place], [place] [address] 04/08/2024 9:00 AM EST - 04/08/2024 10:00 AM EST Surgery CRS Waiting [facility], Cardiac Recovery Suite Waiting Unit, H [address] [place] [address] Tyson Lin DO [address] [place] [address] CORONARY ANGIOGRAPHY W/LEFT HEART CATH 04/13/2024 1:30 PM EST Office Visit Cardiothoracic Surg [facility] for [facility] [place] [address] [place] [address] Orville Gambino MD [address] [place], [place] [phone] 04/13/2024 2:30 PM EST Office Visit Cardiology [facility] [place] [address] [place] [address] Osbaldo Wallace MD [address] [place] [address] 08/04/2024 9:00 AM EDT Office Visit [facility] [address] [place] [address] Demetrio Mills MD [address] [place] [address] 08/18/2024 11:00 AM EDT Hospital Encounter ENDO [facility], Endoscopy [address] [phone] Ema Taylor MD [address] [place] [address] 08/18/2024 11:00 AM EDT - 08/18/2024 11:30 AM EDT Surgery ENDO [facility], [address]oscopy [address] [place] [address] Ema Taylor MD [address] [place] [address] ESOPHAGOGASTRODUODENOSCOPY (EGD), FLEXIBLE, TRANSORAL, DIAGNOSTIC 12/22/2024 9:40 AM EDT Office Visit Dermatology [facility] [address] [place] [address] Angel Castillo PA-C [address] [place] [address] Scheduled Procedures Name Priority Associated Diagnoses Date/Ti [...] Cancer Screening 12/10/2024 CKD PHOS USE SMARTSET 77779 12/19/202411/26, 08/10/2022, 04/26/2021, Additional history exists Depression Screening 12/24/2024 12/25/2023 CKD HGB USE SMARTSET 54424 02/12/202502/12, 02/13/2024, 12/20/2023, Additional history exists Lipid Panel 08/11/2027 08/10/2022, 03/2021, 09/22/2020, Additional history exists DTap/Tdap Vaccines [...] filedocumented as of this encounter Care Teams Assistant Reading Teacher Relationship Specialty Start Date End Date June, Roger Lake MD [address] [facility] [place] [address] PCP - General Family Medicine 03/04/24 documented as of this encounter
--- OUTSIDE RECORDS SUMMARY | 2024-03-20 23:32 | External Medical Summary | Summary of Care ---
Author Name Unknown Organization [facility] Address [address] [facility] [place] [address] Phone [phone] Care Team Providers Care Meal Grinder Tender Name Role Phone Roger Gonsalves MD Primary Care Provider [phone] Reason for Visit * Reason Onset Date Comments Precert In Process 03/12/2024 Niko Galvez verScript Xifaxawilman Encounter Details Date Type Department Care Team (Late st Contact Info) Description 03/12/2024 Telephone Gastroenterology, [facility] [address] [place] [address] Araceli Arriaga CRNP [address] [place] [address] Precert In Process (Niko Cartagenapt... 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 Please attach to auth. 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 Recommend treatment with Xifaxan, 500 mg three times daily times 14 days. KARL Whitaker * Telephone Encounter - Rodolfo Tsang LPN - 03/12/2024 11:59 AM EST [facility] called and said the pt's hydrogen breath test is complete and in [employer]. HIM [id number] documented in this encounter Plan of Treatment Upcoming Encounters Date Type Department Care Team (Latest Contact Info) Description 04/01/2024 10:15 AM EST Hospital Encounter ENDO [facility], Endoscopy Room [facility] [address] [place] [phone] Angel Garcia MD [address] [place] [address] 04/01/2024 10:15 AM EST - 04/01/2024 10:45 AM EST Surgery ENDO [facility], Endoscopy Room [facility] [address] [place] [address] Angel Garcia MD [address] [place] [address] COLONOSCOPY FLEXIBLE PROXIMAL DIAGNOSTIC 04/08/2024 7:00 AM EST Office Visit Cardiology [facility] [address] [place] [address] [facility] Cardiac Recovery [facility] [address] [place] [address] 04/08/2024 8:00 AM EST Appointment Cardiac Studies [facility] [address] [place] [address] 04/08/2024 9:00 AM EST Hospital Encounter CRS Waiting [facility], Cardiac Recovery Suite Waiting Unit, H [address] [place] [address] Tyson Lin DO [address] [place] [address] 04/08/2024 9:00 AM EST - 04/08/2024 10:00 AM EST Surgery CRS Waiting [facility], Cardiac Recovery Suite Waiting Unit, H [address] [place] [address] Tyson Lin DO [address] [place] [address] CORONARY ANGIOGRAPHY W/LEFT HEART CATH 04/13/2024 1:30 PM EST Office Visit Cardiothoracic Surg [facility] [address] [facility] [place] [address] Orville Gambino MD [address] [place] [address] 04/13/2024 2:30 PM EST Office Visit Cardiology [facility] [place] [address] [place] [address] Osbaldo Wallace MD [address] [place] [address] 08/04/2024 9:00 AM EDT Office Visit [facility] [address] [facility] [place] [address] Demetrio Mills MD [address] [place] [address] 08/18/2024 11:00 AM EDT Hospital Encounter ENDO [facility], Endoscopy [address] [phone] Ema Taylor MD [address] [place] [address] 08/18/2024 11:00 AM EDT - 08/18/2024 11:30 AM EDT Surgery ENDO [facility], Endoscopy [address] [phone] Ema Taylor MD [address] [place] [address] ESOPHAGOGASTRODUODENOSCOPY (EGD), FLEXIBLE, TRANSORAL, DIAGNOSTIC 12/22/2024 9:40 AM EDT Office Visit Dermatology [address] [address] [place], [place], [place]-[address] [address] Scheduled Procedures Name Priority Associated Diagnoses Date/Ti [...] Cancer Screening 12/10/2024 CKD PHOS USE SMARTSET 35782 12/19/202411/26, 08/10/2022, 04/26/2021, Additional history exists Depression Screening 12/24/2024 12/25/2023 CKD HGB USE SMARTSET 15297 02/12/202502/12, 02/13/2024, 12/20/2023, Additional history exists Lipid [...] reflux documented in this encounter Care Teams Meal Grinder Tender Relationship Specialty Start Date End Date June, Roger Lake MD [address] [facility] [place] [address] PCP - General Family Medicine 03/04/24 documented as of this encounter
--- OUTSIDE RECORDS SUMMARY | 2024-03-20 23:32 | External Medical Summary | Summary of Care ---
Author Name Unknown Organization [facility] Address [address] [facility] [place] [address] Phone [phone] Care Team Providers Care Medical Anthropologist Name Role Phone Roger Gonsalves MD Primary Care Provider [phone] Reason for Visit * Reason Onset Date Comments Precert Approved 03/12/2024 Xifaxan Encounter Details Date Type Department Care Team (Late st Contact Info) Description 03/12/2024 Telephone Gastroenterology, [facility] [address] [place] [address] Araceli Arriaga CRNP [address] [place] [address] Precert Approved (Xifaxan) Allergies No known active allergiesdocumented as of [...] 06/2019, BCC L posterior auricular and R [id number],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 Please attach to auth. 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 Recommend treatment with Xifaxan, 500 mg three times daily times 14 days. KARL Whitaker * Telephone Encounter - Rodolfo Tsang LPN - 03/12/2024 11:59 AM EST [facility] called and said the pt's hydrogen breath test is complete and in [employer]. HIM [id number] documented in this encounter Plan of Treatment Upcoming Encounters Date Type Department Care Team (Latest Contact Info) Description 04/01/2024 10:15 AM EST Hospital Encounter ENDO [facility], Endoscopy Room [facility] [address] [place] [address] Angel Garcia MD [address] [place] [address] 04/01/2024 10:15 AM EST - 04/01/2024 10:45 AM EST Surgery ENDO [facility], Endoscopy Room [facility] [address] [place] [address] Angel Garcia MD [address] [place] [address] COLONOSCOPY FLEXIBLE PROXIMAL DIAGNOSTIC 04/08/2024 7:00 AM EST Office Visit Cardiology [place] [address] [place] [address] [place], Cardiac Recovery [facility] [address] [place] [address] 04/08/2024 8:00 AM EST Appointment Cardiac Studies [place] [address] [place] [address] 04/08/2024 9:00 AM EST Hospital Encounter CRS Waiting [facility], Cardiac Recovery Suite Waiting Unit, [address] [place] [address] Tyson Lin [address] [place] [address] 04/08/2024 9:00 AM EST - 04/08/2024 10:00 AM EST Surgery CRS Waiting [facility], Cardiac Recovery Suite Waiting Unit, H [address] [place] [address] Tyson Lin, [address] [place] [address] CORONARY ANGIOGRAPHY W/LEFT HEART CATH 04/13/2024 1:30 PM EST Office Visit Cardiothoracic Surg [facility], [place] [address] [place] [address] Orville Gambino MD [address] [place] [address] 04/13/2024 2:30 PM EST Office Visit Cardiology [facility], [place] [address] [place] [address] Osbaldo Wallace MD [address] [place] [address] 08/04/2024 9:00 AM EDT Office Visit [facility] [address] [place] [address] Demetrio Mills MD [address] [place] [address] 08/18/2024 11:00 AM EDT Hospital Encounter ENDO [facility], Endoscopy [address] [phone] Ema Taylor MD [address] [place] [address] 08/18/2024 11:00 AM EDT - 08/18/2024 11:30 AM EDT Surgery ENDO [facility], Endoscopy [address] [phone] Ema Taylor MD [address] [place], [place] [address] ESOPHAGOGASTRODUODENOSCOPY (EGD), FLEXIBLE, TRANSORAL, DIAGNOSTIC 12/22/2024 9:40 AM EDT Office Visit Dermatology [facility] [address] [place] [address] Angel Castillo PA-C [address] [place] [address] Scheduled Procedures Name Priority Associated Diagnoses [...] Cancer Screening 12/10/2024 CKD PHOS USE SMARTSET 18194 12/19/202411/26, 08/10/2022, 04/26/2021, Additional history exists Depression Screening 12/24/2024 12/25/2023 CKD HGB USE SMARTSET 24508 02/12/202502/12, 02/13/2024, 12/20/2023, Additional history exists Lipid [...] reflux documented in this encounter Care Teams Medical Anthropologist Relationship Specialty Start Date End Date June, Roger Lake MD [address] [place] [address] PCP - General Family Medicine 03/04/24 documented as of this encounter
--- OUTSIDE RECORDS SUMMARY | 2024-03-20 23:32 | External Medical Summary | Summary of Care ---
Author Name Unknown Organization [facility] Address [address] [facility] [place] [address] Phone [phone] Care Team Providers Care Slasher Sawyer Name Role Phone Roger Gonsalves MD Primary Care Provider [phone] Reason for Visit * Reason Onset Date Comments Medical Records Request 03/12/2024 [facility] Encounter Details Date Type Department Care Team (Late st Contact Info) Description 03/12/2024 Telephone Gastroenterology, [facility] [address] [place] [address] Araceli Arriaga CRNP [address] [place] [address] Medical Records Request ([facility] ) Allergies No known active allergiesdocumented as of [...] 06/2019, BCC L posterior auricular and R [id number],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, BCC midchest unknown year [...] encounter Miscellaneous Notes * Telephone Encounter - Neris Ellis OSA - 03/12/2024 3:26 PM EST Admission assessment records from [facility] documented in this encounter Plan of Treatment Upcoming Encounters Date Type Department Care Team (Latest Contact Info) Description 04/01/2024 10:15 AM EST Hospital Encounter ENDO [facility], Endoscopy Room [facility] [address] [place] [phone] Angel Garcia MD [address] [place] [address] 04/01/2024 10:15 AM EST - 04/01/2024 10:45 AM EST Surgery ENDO [facility], Endoscopy Room [facility] [address] [place] [address] Angel Garcia MD [address] [place] [address] COLONOSCOPY FLEXIBLE PROXIMAL DIAGNOSTIC 04/08/2024 7:00 AM EST Office Visit Cardiology [facility], [place] [address] [facility] [place] [address] [place], Cardiac Recovery [place] [address] [address] [facility] [place] [phone] 04/08/2024 8:00 AM EST Appointment Cardiac Studies [facility], [place] [address] [facility] [place] [id number] 04/08/2024 9:00 AM EST Hospital Encounter CRS Waiting [facility], Cardiac Recovery Suite Waiting Unit, H [address] [place] [address] Tyson Lin, DO [address] [facility] [place] [address] 04/08/2024 9:00 AM EST - 04/08/2024 10:00 AM EST Surgery CRS Waiting [facility], Cardiac Recovery Suite Waiting Unit, H [address] [facility] [place] [address] Tyson Lin, DO [address] [facility] [place] [address] CORONARY ANGIOGRAPHY W/LEFT HEART CATH 04/13/2024 1:30 PM EST Office Visit Cardiothoracic Surg [facility], [place] [address] [place] [address] Orville Gambino MD [address] [place] [address] 04/13/2024 2:30 PM EST Office Visit Cardiology [facility], [place] [address] [place] [address] Osbaldo Wallace MD [address] [place] [address] 08/04/2024 9:00 AM EDT Office Visit [facility] [address] [place] [address] Demetrio Mills MD [address] [place] [address] 08/18/2024 11:00 AM EDT Hospital Encounter ENDO [facility], Endoscopy [address] [phone] Ema Taylor MD [address] [place] [address] 08/18/2024 11:00 AM EDT - 08/18/2024 11:30 AM EDT Surgery ENDO [facility], Endoscopy [address] [place] [phone] Ema Taylor MD [address] [place] [address] ESOPHAGOGASTRODUODENOSCOPY (EGD), FLEXIBLE, TRANSORAL, DIAGNOSTIC 12/22/2024 9:40 AM EDT Office Visit [address] [address] Angel Castillo PA-C [address] [place] [address] Scheduled Procedures Name Priority Associated Diagnoses Date/Ti [...] Cancer Screening 12/10/2024 CKD PHOS USE SMARTSET 68761 12/19/202411/26, 08/10/2022, 04/26/2021, Additional history exists Depression Screening 12/24/2024 12/25/2023 CKD HGB USE SMARTSET 21679 02/12/202502/12, 02/13/2024, 12/20/2023, Additional history exists Lipid [...] filedocumented as of this encounter Care Teams Slasher Sawyer Relationship Specialty Start Date End Date June, Roger Lake MD [address] [place] [address] PCP - General Family Medicine 03/04/24 documented as of this encounter
--- OUTSIDE RECORDS SUMMARY | 2024-03-20 23:32 | External Medical Summary | Summary of Care ---
Author Name Unknown Organization [facility] Address [address] 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 Recommend treatment with Xifaxan, 500 mg three times daily times 14 days. KARL Whitaker * Telephone Encounter - Rodolfo Tsang LPN - 03/12/2024 11:59 AM EST [facility] called and said the pt's hydrogen breath test is complete and in [employer]. HIM [id number] documented in this encounter Plan of Treatment Upcoming Encounters Date Type Department Care Team (Latest Contact Info) Description 04/01/2024 10:15 AM EST Hospital Encounter ENDO [facility], Endoscopy Room [facility] [address] [facility] [place] [address] Angel Garcia MD [address] [place] [address] 04/01/2024 10:15 AM EST - 04/01/2024 10:45 AM EST Surgery ENDO [facility], Endoscopy Room [facility] [address] [place] [address] Angel Garcia MD [address] [place] [address] COLONOSCOPY FLEXIBLE PROXIMAL DIAGNOSTIC 04/08/2024 7:00 AM EST Office Visit Cardiology [facility] [place] [address] [place] [address] [facility] [address] [place] [address] 04/08/2024 8:00 AM EST Appointment Cardiac Studies [place] [address] [place] [address] 04/08/2024 9:00 AM EST Hospital Encounter [facility] [place], Cardiac Recovery Suite Waiting Unit, H [address] [place] [address] Tyson Lin, [address] [place] [address] 04/08/2024 9:00 AM EST - 04/08/2024 10:00 AM EST Surgery [facility]S [place], Cardiac Recovery Suite Waiting Unit, H [address] [place] [address] Tyson Lin, [address] [place] [address] CORONARY ANGIOGRAPHY W/LEFT HEART CATH 04/13/2024 1:30 PM EST Office Visit Cardiothoracic Surg [facility] [place] [address] [place] [address] Orville Gambino MD [address] [place] [address] 04/13/2024 2:30 PM EST Office Visit Cardiology [facility] [place] [address] [place] [address] Osbaldo Wallace MD [address] [place] [address] 08/04/2024 9:00 AM EDT Office Visit [facility] [address] [place] [address] Demetrio Mills MD [address] [place] [address] 08/18/2024 11:00 AM EDT Hospital Encounter ENDO [facility], Endoscopy [address] [phone] Ema Taylor MD [address] [place] [address] 08/18/2024 11:00 AM EDT - 08/18/2024 11:30 AM EDT Surgery ENDO [facility], Endoscopy [address] [phone] Ema Taylor MD [address] [place] [address] ESOPHAGOGASTRODUODENOSCOPY (EGD), FLEXIBLE, TRANSORAL, DIAGNOSTIC 12/22/2024 9:40 AM EDT Office Visit Dermatology [address] [address] Angel Castillo PA-C [address] [place] [address] Scheduled Procedures Name Priority Associated Diagnoses Date/Ti [...] Cancer Screening 12/10/2024 CKD PHOS USE SMARTSET 94602 12/19/202411/26, 08/10/2022, 04/26/2021, Additional history exists Depression Screening 12/24/2024 12/25/2023 CKD HGB USE SMARTSET 17314 02/12/202502/12, 02/13/2024, 12/20/2023, Additional history exists Lipid [...] reflux documented in this encounter Care Teams Refuse Collector Relationship Specialty Start Date End Date June, Roger Lake MD [address] [facility] [place] [address] PCP - General Family Medicine 03/04/24 documented as of this encounter
--- OUTSIDE RECORDS SUMMARY | 2024-03-20 23:32 | External Medical Summary | Summary of Care ---
Author Name Unknown Organization [facility] Address [address] [facility] [place] [address] Phone [phone] Care Team Providers Care Academic Tutor Name Role Phone Roger Gonsalves MD Primary Care Provider [phone] Reason for Visit * Reason Onset Date Comments Medication Pre-auth 03/12/2024 Encounter Details Date Type Department Care Team (Late st Contact Info) Description 03/12/2024 Telephone Gastroenterology, [facility] [address] [place] [address] Araceli Arriaga CRNP [address] [place] [address] Medication Pre-auth Allergies No known active allergiesdocumented [...] 06/2019, BCC L posterior auricular and R [id number],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, BCC midchest unknown year [...] care: Self-administered - route pre-cert request to [id number] Office Information: Prescriber: Araceli Arriaga Pt has [...] LPN - 03/12/2024 11:59 AM EST [facility] called and said the pt's hydrogen breath test is complete and in [employer]. HIM [id number] documented in this encounter Plan of Treatment Upcoming Encounters Date Type Department Care Team (Latest Contact Info) Description 04/01/2024 10:15 AM EST Hospital Encounter ENDO [facility], Endoscopy Room [facility] 132 [facility] [place] [address] Angel Garcia MD [address] [place] [address] 04/01/2024 10:15 AM EST - 04/01/2024 10:45 AM EST Surgery ENDO [facility], Endoscopy Room [facility] [address] [place] [address] Angel Garcia MD [address] [place] [address] COLONOSCOPY FLEXIBLE PROXIMAL DIAGNOSTIC 04/08/2024 7:00 AM EST Office Visit Cardiology [facility] [place] [address] [place] [address] [facility] [address] [place] [address] 04/08/2024 8:00 AM EST Appointment Cardiac Studies [place] [address] [place] [address] 04/08/2024 9:00 AM EST Hospital Encounter CRS Waiting [facility], Cardiac Recovery Suite Waiting Unit, H [address] [place] [address] Tyson Lin, [address] [place] [address] 04/08/2024 9:00 AM EST - 04/08/2024 10:00 AM EST Surgery CRS Waiting [facility], Cardiac Recovery Suite Waiting Unit, H [address] [place] [address] Tyson Lin, [address] [place] [address] CORONARY ANGIOGRAPHY W/LEFT HEART CATH 04/13/2024 1:30 PM EST Office Visit Cardiothoracic Surg [facility] [place] [address] [place] [address] Orville Gambino MD [address] [place] [address] 04/13/2024 2:30 PM EST Office Visit Cardiology [facility] [place] [address] [place] [address] Osbaldo Wallace MD [address] [place] [address] 08/04/2024 9:00 AM EDT Office Visit [facility] [address] [place] [address] Demetrio Mills MD [address] [place] [address] 08/18/2024 11:00 AM EDT Hospital Encounter ENDO [facility], Endoscopy [address] [address] Ema Taylor MD [address] [place] [address] 08/18/2024 11:00 AM EDT - 08/18/2024 11:30 AM EDT Surgery ENDO [facility], Endoscopy [address] [address] Ema Taylor MD [address] [place] [address] ESOPHAGOGASTRODUODENOSCOPY (EGD), FLEXIBLE, TRANSORAL, DIAGNOSTIC 12/22/2024 9:40 AM EDT Office Visit Dermatology [address] [address] Angel Castillo PA-C [address] [place] [address] Scheduled Procedures Name Priority Associated Diagnoses Date/Ti [...] Cancer Screening 12/10/2024 CKD PHOS USE SMARTSET 52435 12/19/202411/26, 08/10/2022, 04/26/2021, Additional history exists Depression Screening 12/24/2024 12/25/2023 CKD HGB USE SMARTSET 45769 02/12/202502/12, 02/13/2024, 12/20/2023, Additional history exists Lipid [...] reflux documented in this encounter Care Teams Academic Tutor Relationship Specialty Start Date End Date June, Roger [place] MD [address] [facility] [place] [address] PCP - General Family Medicine 03/04/24 documented as of this encounter
--- OUTSIDE RECORDS SUMMARY | 2024-03-20 23:32 | External Medical Summary | Summary of Care ---
Author Name Unknown Organization [facility] Address [address] [facility] [place] [address] Phone [phone] Care Team Providers Care Cloud Architect Name Role Phone Roger Gonsalves MD Primary Care Provider [phone] Reason for Visit * Reason Onset Date Comments Precert Approved 03/12/2024 Xifaxan Encounter Details Date Type Department Care Team (Late st Contact Info) Description 03/12/2024 Telephone Gastroenterology, [facility] [address] [place] [id number] Araceli Arriaga CRNP [address] [place] [address] Precert Approved (Xifaxan) Allergies No known active [...] 06/2019, BCC L posterior auricular and R [id number],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, BCC midchest unknown year [...] mRNA, LNP-s, No Pre serve, 2-Dose Series ([employer]) 05/05/2020,04/09/2020 COVID-19, mRNA, LNP-s, PF, B ooster, [...] Telephone Encounter - Pattie Escobar CMA - 03/13/2024 10:25 AM EST Pt aware of results and Xifaxan approved and sent to pharmacy. Pt voiced understanding. * Telephone Encounter - Pattie Escobar CMA - 03/13/2024 10:22 AM EST Type Date User Summary Attachment Precert 03/13/2024 9:46 AM Nadeen Brown OSA Please see scanned fax from insurance under theMedia Tab. - Note: Please see scanned fax from insurance under the Media Tab. Approved/Denied: approved Drug Name and Formulation: Xifaxan 550 mg 1 tab 3 times a day How Prescribed(directions/sig): tid Qty and Day Supply: 42/14 Did you receive insurance information from outside the chart? No, received insurance information within the chart Valid auth start date: 02/26/2024 Valid auth end date: 03/27/2024 Rx Insurance Info: nanda VALERA Reference #: Nadeen Brown Medication Audio Specialist III [facility] ([facility]) P: [phone] F: [phone] 03/13/24,9:46 AM . Type Date User Summary Attachment Precert 03/13/2024 9:02 AM Nadeen Brown OSA [facility] Authorization Submission - Note: [facility] Authorization Submission Submission Information: Medication: Xifaxan 550 mg 1 tab 3 times a day Portal used: [facility] Insurance: NANDA Authorization #/Conteh: [id number] * Telephone Encounter - Pattie Escobar CMA - 03/12/2024 3:15 PM EST Gastro Pre-Cert Request Specialty Medication: No. Medication/Disease State Information: Medication: Xifaxan 550 mg 1 tab 3 times a day Diagnosis (including ICD-10): + SIBO K63.8219 Site of care: Self-administered - route pre-cert request to [id number] Office Information: Prescriber: Araceli Arriaga Pt has a positive hydrogen breath test sanned under media. Please attach to auth. 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 Recommend treatment with Xifaxan, 500 mg three times daily times 14 days. KARL Whitaker * Telephone Encounter - Rodolfo Tsang LPN - 03/12/2024 11:59 AM EST [facility] called and said the pt's hydrogen breath test is complete and in [employer]. HIM [phone] documented in this encounter Plan of Treatment Upcoming Encounters Date Type Department Care Team (Latest Contact Info) Description 04/01/2024 10:15 AM EST Hospital Encounter ENDO [facility], Endoscopy Room [facility] [address] [place] [address] Angel Garcia MD [address] [place] [address] 04/01/2024 10:15 AM EST - 04/01/2024 10:45 AM EST Surgery ENDO [facility], Endoscopy Room [facility] [address] [place] [phone] Angel Garcia MD [address] [place] [address] COLONOSCOPY FLEXIBLE PROXIMAL DIAGNOSTIC 04/08/2024 7:00 AM EST Office Visit Cardiology [facility], [place] [address] [place] [address] [facility] Cardiac Recovery [facility] [address] [place] [address] 04/08/2024 8:00 AM EST Appointment Cardiac Studies [place] [address] [place] [address] 04/08/2024 9:00 AM EST Hospital Encounter CRS Waiting [facility], Cardiac Recovery Suite Waiting Unit, [address] [place] [phone] Tyson Lin DO [address] [place] [address] 04/08/2024 9:00 AM EST - 04/08/2024 10:00 AM EST Surgery CRS Waiting [facility], Cardiac Recovery Suite Waiting Unit, [address] [place] [phone] Tyson Lin DO [address] [place] [address] CORONARY ANGIOGRAPHY W/LEFT HEART CATH 04/13/2024 1:30 PM EST Office Visit [facility], [place] [address] [place] [address] Orville Gambino MD [address] [place] [address] 04/13/2024 2:30 PM EST Office Visit [facility] [place] [address] [place] [address] Osbaldo Wallace MD [address] [place] [address] 08/04/2024 9:00 AM EDT Office Visit [facility] [address] [facility] [place] [phone] Demetrio Mills MD [address] [place] [address] 08/18/2024 11:00 AM EDT Hospital Encounter ENDO [facility], Endoscopy [address] [address] Ema Taylor MD [address] [place] [address] 08/18/2024 11:00 AM EDT - 08/18/2024 11:30 AM EDT Surgery ENDO [facility], Endoscopy [address] [address] Ema Taylor MD [address] [place] [address] ESOPHAGOGASTRODUODENOSCOPY (EGD), FLEXIBLE, TRANSORAL, DIAGNOSTIC 12/22/2024 9:40 AM EDT Office Visit Dermatology [facility] [address] [place] [phone] Angel Castillo PA-C [address] [place] [id number] Scheduled Procedures Name Priority Associated Diagnoses Date/Ti [...] Cancer Screening 12/10/2024 CKD PHOS USE SMARTSET 77280 12/19/202411/26, 08/10/2022, 04/26/2021, Additional history exists Depression Screening 12/24/2024 12/25/2023 CKD HGB USE SMARTSET 79815 02/12/202502/12, 02/13/2024, 12/20/2023, Additional history exists Lipid [...] reflux documented in this encounter Care Teams Cloud Architect Relationship Specialty Start Date End Date June, Roger Lake MD [address] [facility] [place] [address] PCP - General Family Medicine 03/04/24 documented as of this encounter
[2024-03-21 00:21] VITALS: RESP 16
[2024-03-21] MEDS: FAMOTIDINE 40 MG TABLET PO SCH (00:52)
[2024-03-21] MEDS: rifAXIMin 550 MG TABLET PO SCH (00:52)
[2024-03-21] MEDS: METOPROLOL TARTRATE 25 MG TAB PO STA (01:32)
[2024-03-21 06:54] LABS: Basophils # (auto) 0.02 K/uL (0.00-0.20); Basophils % (auto) 0.3 %; Hemoglobin 12.4 g/dl (14.0-18.0); Immature Granulocytes # (auto) 0.02 K/uL (0.01-0.20); Immature Granulocytes % (auto) 0.3 %; Lymphocytes # (auto) 0.89 K/uL (1.20-3.40); Lymphocytes % (auto) 13.5 %; Mean Corpuscular Hemoglobin 28.3 pg (25.0-34.0); Mean Corpuscular Hgb Conc 33.5 g/dL (32.0-36.0); Mean Corpuscular Volume 84.5 fL (80.0-100.0); Mean Platelet Volume 10.6 fL (9.4-12.4); Monocytes # (auto) 1.69 K/uL (0.11-0.59); Monocytes % (auto) 25.6 %; Neutrophils # (auto) 3.97 K/uL (1.40-6.50); Neutrophils % (auto) 60.3 %; Platelet Count 115 K/uL (130-400); RDW Coefficient of Variation 12.7 % (11.5-14.5); RDW Standard Deviation 39.3 fL (36.4-46.3); Red Blood Count 4.38 M/uL (4.70-6.10); White Blood Count 6.59 K/ul (4.8-10.8)
[2024-03-21 07:17] LABS: BUN Creatinine Ratio 15.2 (10-20); Calcium 8.5 mg/dl (8.6-10.3); Creatinine Clr Calc Pharmacy 58.7 ml/min; Magnesium 1.7 mg/dl (1.7-2.4); Potassium 3.9 mmol/L (3.5-5.1)
[2024-03-21 07:28] LABS: Estimated Average Glucose 114 mg/dl; Hemoglobin A1C 5.6 % (4.5-5.6)
[2024-03-21 07:47] VITALS: BP 146/84; PULSE 64; TEMP 98.2; O2SAT 97
[2024-03-21] MEDS: PANTOprazole 40 MG TAB PO SCH (08:51)
[2024-03-21] MEDS: lisinopril 5 MG TAB PO SCH (08:51)
[2024-03-21] MEDS: METOPROLOL SUCC 25MG EXT REL TAB PO SCH (08:51)
--- NOTE | 2024-03-21 11:16 | Electrocardiogram Report ---
Test Reason : Blood Pressure : */* mmHG Vent. Rate : 80 BPM Atrial Rate : 80 BPM P-R Int : 194 ms QRS Dur : 92 ms QT Int : 354 ms P-R-T Axes : 72 42 1 degrees QTcB Int : 408 ms Sinus rhythm with occasional Premature ventricular complexes and Premature atrial complexes Nonspecific ST abnormality Abnormal ECG When compared with ECG of 11-Feb-2017 10:00, Premature ventricular complexes are now Present Premature atrial complexes are now Present Vent. rate has increased by 32 bpm Non-specific change in ST segment in Inferior leads Confirmed by Matilda Land (Emilio) on 03/21/2024 11:15:50 AM Referred By: REFERRED SELF Confirmed By: Matilda Land
--- NOTE | 2024-03-21 11:31 | Electrocardiogram Report ---
Test Reason : Blood Pressure : */* mmHG Vent. Rate : 63 BPM Atrial Rate : 63 BPM P-R Int : 212 ms QRS Dur : 92 ms QT Int : 380 ms P-R-T Axes : 52 34 0 degrees QTcB Int : 388 ms Sinus rhythm with 1st degree A-V block with Premature atrial complexes Nonspecific ST abnormality Abnormal ECG When compared with ECG of 20-Mar-2024 18:03, (unconfirmed) Premature ventricular complexes are no longer Present Confirmed by Matilda Land (Emilio) on 03/21/2024 11:31:29 AM Referred By: REFERRED SELF Confirmed By: Matilda Land
--- NOTE | 2024-03-21 12:32 | Discharge Summary ---
Discharge Summary Date of Service March 21, 2024 Principal Dx & Hospital Course #1 = Principal Diagnosis (1) Generalized weakness: (2) Influenza A (H1N1): Plan Pt presented with Weakness secondary to the influenza illness Positive on testing for influenza [id number] testing Treated with IV fluids and tamiflu Discharged with tamiflu to complete the course His magnesium levels were repleted Glucose levels were elevated but [id number] wnl EKG on admission noting PVCs, pt asymptomatic Repeat EKG on 03/21 noting sinus rhythm with first degree sinus block and PACs. Pt remained asymptomatic. On the day of discharge ambulating the room without issue with his IV pole. Close PCP and cardiology followup recommended after discharge...pt states he follows with Cardiology both locally and at the [facility]. (Was reportedly returning from a cardiology visit at the [facility] when symptoms started.) Notes For Next Care Provider Please ensure close cardiac followup Medication Changes From Visit Tamiflu 75mg BID x 4 more days Admission HPI Per Admitting Provider History obtained from patient and records. Medical history significant for valvular heart disease (severe MR, mild mitral valve prolapse/mild TR), symptomatic PVCs, hypertension, GERD, IBS, SIBO currently on Xifaxan, skin cancer as per records. Last confinement 2022 for enterocolitis. 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 Sore throat followed by nausea and transient diarrhea symptoms. No abdominal pain. Fever of 100.5 today. Poor appetite. Denies headache, chest pain, SOB. Junky cough symptoms but patient unable to expectorate. Patient brought to ER by for evaluation. Flu swab positive. Patient uncomfortable going home. Medical History as above Surgical History : Tonsillectomy Family History : Lung cancer, colon cancer, DM, heart disease Personal/Social history : Non-smoker, no recent EtOH intake, retired park employee Admission Exam Per Admitting Provider GENERAL: Comfortable, pleasant, no respiratory distress SKIN: Normal color, warm HEENT: Partial alopecia, pink palpebral conjunctivae, no ptosis, dry buccal mucosa NECK : Supple, no tenderness CHEST : CTA, no tenderness HEART : RRR, no obvious murmurs ABDOMEN: Some distention, nontender EXTREMITIES : No LE swelling/tenderness, no other conspicuous deformities noted NEUROLOGIC : Coherent, no facial asymmetry, no other gross focality Discharge Exam General: Alert, oriented. No acute distress Psych: Appropriate mood and affect Neuro: No gross deficits HEENT: NC/AT CV: RRR, +murmur Resp: Breath sounds clear bilaterally, no increased effort of breathing Abdomen: Soft, nontender Extremities: No edema in lower extremities bilaterally. Updated Medication List Medication Instructions Recorded Confirmed Type famotidine 40 mg tablet 40 mg PO HS 03/12/24 03/20/24 History metoprolol succinate 25 mg 25 mg PO QAM 03/12/24 03/20/24 History tablet,extended release 24 hr psyllium 1 packet PO DAILY PRN Constipation 03/12/24 03/20/24 History lorazepam 0.5 mg tablet 0.5 mg PO TID PRN Anxiety 03/20/24 03/20/24 History omeprazole 20 mg capsule,delayed 40 mg PO QAM 03/20/24 03/20/24 History release rifaximin 550 mg tablet (Xifaxan) 1 mg PO TID 03/20/24 03/20/24 History oseltamivir 75 mg capsule (Tamiflu) 75 mg PO BID #8 caps 03/21/24 Rx Hospital Stay Data Consultations 03/20/24 21:57 ED Decision to Admit Stat Diagnostic Imagining Performed Chest X-Ray 03/20/24 17:59 Exam(s): XR CXR 1 VIEW EXAM: XR Chest, 1 View CLINICAL HISTORY: illness. TECHNIQUE: Frontal view of the chest. COMPARISON: Chest single view 03/05/2023 FINDINGS: Lungs: Unremarkable. No consolidation. The pulmonary vasculature demonstrates no significant radiographic abnormality. Pleural space: Unremarkable. No pneumothorax. No large pleural effusion. Heart: Unremarkable. No cardiomegaly. Mediastinum: The mediastinal contours are stable and unremarkable. No tracheal deviation. Bones/joints: Unremarkable. No acute fracture. IMPRESSION: No acute cardiopulmonary process or significant alteration from the prior examination. Electronically signed by: Quique Nazario MD 03/20/24 20:59 PM Pending Results Patient Have Any Pending Studies at Discharge: No Discharge Instructions Given to Patient (Per Discharging Provider) Mr. Mantilla, You were admitted and treated for a flu infection. Your symptoms are improving and you are stable for discharge. Please continue with the remaining doses of Tamiflu as prescribed. Please continue to stay hydrated at home. Please continue to keep close followup with your Cardiology providers. You remained asymptomatic from a cardiac standpoint while here. Please also keep close follow up with your primary care provider after discharge. Please do not hesitate to come back to the emergency room if your symptoms worsen or return. It was a pleasure taking care of you while you were here. Total Time Total Time Spent Total Time Spent (In Minutes): 60
== END 2024-03-21 13:35 | disposition home or self-care (01) ==
LOC: 3E 17:47 → ED 17:47 → 3E 23:32

== ENCOUNTER 2024-08-14 09:41 | Observation (INO) ==
--- NOTE | 2024-08-14 10:02 | Emergency Department Note ---
Impression & Plan Generalized weakness ED Provider Note HISTORY OF PRESENT ILLNESS: Patient is a 74-year-old male presenting with excessive fatigue. Patient reports for the last 2 weeks he has been having difficulties getting up and doing anything like he normally does. He reports he feels very tired and all he wants to do his sleep. He states that he has difficulties getting up and walking, as he becomes very fatigued after just a few steps. He denies any recent headaches or changes in vision. Denies any numbness or tingling in his extremities. Denies any chest pain or shortness of breath. He does report that this morning went up to go to the bathroom and his stool was bright green in color. He reports he has not had any green-colored foods or leafy vegetables. He reports he is never had stool discolored before. Denies any abdominal pain. He denies any known tick bites or recent rashes. Denies any recent sick contact exposure. Denies any recent travel. Patient did bring a stool sample and it appears bright green and liquidy in color and consistency. ROS: as above PHYSICAL EXAM: Constitutional: Patient appears in no acute distress. HENT: Head: Normocephalic and atraumatic. Eyes: EOMI, PERRL Mouth/Throat: Mucous membranes moist. Neck: Trachea midline. Neck supple. Cardiovascular: RRR, No murmurs, rubs or gallops. Intact distal pulses. Pulmonary/Chest: No respiratory distress. Breath sounds clear and equal bilaterally. No wheezes or rales. Abdominal: Abdomen soft, no tenderness, rebound or guarding. Musculoskeletal: No edema, tenderness or deformity noted. Skin: Warm and dry. No rash, erythema, pallor or cyanosis Psychiatric: Appropriate mood and affect for situation. Neurological: Alert and keenly responsive. CN II-XII grossly intact, moving all extremities equally and fully. MDM: - Vitals signs showed hypertension - History obtained via patient. History as above. - Chronic conditions affecting care: CKD - Differential diagnoses include, but are not limited to: Tickborne illness; pneumonia; UTI; viral syndrome; electrolyte abnormality; dehydration - Order placed for continuous cardiac monitoring. At this time, monitor showed rate of 72 bpm with normal sinus rhythm, per my interpretation. - External medical records reviewed. - EKG image interpreted by myself showed normal sinus rhythm. Rate 76 bpm. QT 364. No acute ischemic changes. Patient is noted to have a sinus arrhythmia. - Laboratory workup interpreted by myself showed leukocytosis (WBC 11.30) with neutrophil predominance; normal PT/INR; slight hyponatremia (Na 135); normal lactate; negative procalcitonin; TRU on CKD (Cr 1.41); normal TSH; normal troponin - Negative Lyme/Babesia/Anaplasmosis - UA negative for infection - Viral respiratory panel negative - CXR image reviewed by myself is negative for pneumonia, per my interpretation. Radiology reports a small right pleural effusion and associated right lung base consolidation. - Stool PCR negative - Patient ambulated in ER, but became significantly weak and fatigued with only a short distance. Discussed results with the patient and his at bedside. Will admit for further evaluation and management, given that he is not able to perform his ADLs like he normally can secondary to his fatigue and weakness - Discussion was had with case supervisor about patient's case and need for admission - Hospitalist consulted for admission - Patient admitted to [facility] for further evaluation and management. ASSESSMENT AND PLAN: Diagnosis: Generalized weakness Plan: Admit Past Med/Surg History Problem List (Updated 08/14/24 @ 16:47 by Berkley Lazar MD) Influenza A (H1N1) (Acute) Generalized weakness (Acute) Medical History Acute kidney injury superimposed on chronic kidney disease Enterocolitis Intractable nausea and vomiting GERD (gastroesophageal reflux disease) IBS (irritable bowel syndrome) Rupture of right Achilles tendon Social History Smoking Status: Never smoker Hx Alcohol Use: No Hx Substance Use: No Preferred Language: Surinamese Communication Ability: Effective Drapery Sewer Hand Required: No Beliefs That Will Affect Care: None Current Living Situation: Spouse Feels Safe at Home: Yes Assistive Devices: Glasses and Hearing Aid - Bilateral Allergies Allergies Allergy/AdvReac Type Severity Reaction Status Date / Time No Known Allergies Allergy Verified 07/28/24 16:50 Home Meds Home Medications Medication Instructions Recorded Confirmed omeprazole 20 mg capsule,delayed 40 mg PO QAM 03/20/24 08/14/24 release amiodarone 200 mg tablet 200 mg PO UD 07/28/24 08/14/24 aspirin 81 mg tablet,delayed 81 mg PO DAILY 07/28/24 08/14/24 release metoprolol succinate 25 mg 25 mg PO DAILY 07/28/24 08/14/24 tablet,extended release 24 hr lorazepam 0.5 mg tablet 0.5 mg PO TID PRN Anxiety 08/14/24 08/14/24 sertraline 25 mg tablet 25 mg PO DAILY 08/14/24 08/14/24 Results & Data (ED) Vital Signs Vital Signs - 24 hr 08/14/24 09:42 08/14/24 09:42 08/14/24 10:00 Temperature 36.6 C Temperature Source Temporal Artery Scan Pulse Rate - Lying Pulse Rate - Sitting Pulse Rate - Standing Pulse Rate 84 76 Pulse Rate from SpO2 Sensor Respiratory Rate 18 17 Blood Pressure - Lying Blood Pressure - Sitting Blood Pressure- Standing Blood Pressure 132/84 132/83 Blood Pressure Mean 100 99 Pulse Oximetry 99 99 Sepsis Recent Fever Within 48 Hours No Sepsis New/Unexplained Change in Mental Status N/A Sepsis Action Taken by Nursing No Action Required 08/14/24 10:29 08/14/24 10:30 08/14/24 11:00 Temperature Temperature Source Pulse Rate - Lying Pulse Rate - Sitting Pulse Rate - Standing Pulse Rate 72 78 78 Pulse Rate from SpO2 Sensor Respiratory Rate 12 14 Blood Pressure - Lying Blood Pressure - Sitting Blood Pressure- Standing Blood Pressure 127/78 138/77 Blood Pressure Mean 94 97 Pulse Oximetry 94 Sepsis Recent Fever Within 48 Hours Sepsis New/Unexplained Change in Mental Status Sepsis Action Taken by Nursing 08/14/24 11:42 08/14/24 12:00 08/14/24 12:30 Temperature Temperature Source Pulse Rate - Lying Pulse Rate - Sitting Pulse Rate - Standing Pulse Rate 77 70 71 Pulse Rate from SpO2 Sensor Respiratory Rate 14 Blood Pressure - Lying Blood Pressure - Sitting Blood Pressure- Standing Blood Pressure 133/74 121/74 125/74 Blood Pressure Mean 93 89 91 Pulse Oximetry 96 96 97 Sepsis Recent Fever Within 48 Hours Sepsis New/Unexplained Change in Mental Status Sepsis Action Taken by Nursing 08/14/24 13:00 08/14/24 13:31 08/14/24 14:00 Temperature Temperature Source Pulse Rate - Lying Pulse Rate - Sitting Pulse Rate - Standing Pulse Rate 80 77 76 Pulse Rate from SpO2 Sensor 74 Respiratory Rate 18 18 Blood Pressure - Lying Blood Pressure - Sitting Blood Pressure- Standing Blood Pressure 117/72 118/73 120/69 Blood Pressure Mean 81 94 86 Pulse Oximetry 95 94 93 Sepsis Recent Fever Within 48 Hours Sepsis New/Unexplained Change in Mental Status Sepsis Action Taken by Nursing 08/14/24 14:17 08/14/24 14:30 08/14/24 15:03 Temperature Temperature Source Pulse Rate - Lying Pulse Rate - Sitting Pulse Rate - Standing Pulse Rate 77 78 72 Pulse Rate from SpO2 Sensor Respiratory Rate 19 19 Blood Pressure - Lying Blood Pressure - Sitting Blood Pressure- Standing Blood Pressure 115/85 Blood Pressure Mean 95 Pulse Oximetry 96 96 Sepsis Recent Fever Within 48 Hours Sepsis New/Unexplained Change in Mental Status Sepsis Action Taken by Nursing 08/14/24 15:27 08/14/24 15:30 08/14/24 15:30 Temperature Temperature Source Pulse Rate - Lying Pulse Rate - Sitting Pulse Rate - Standing Pulse Rate 71 Pulse Rate from SpO2 Sensor 35 L Respiratory Rate 17 Blood Pressure - Lying Blood Pressure - Sitting Blood Pressure- Standing Blood Pressure 127/75 127/75 Blood Pressure Mean 93 93 Pulse Oximetry 95 Sepsis Recent Fever Within 48 Hours Sepsis New/Unexplained Change in Mental Status Sepsis Action Taken by Nursing 08/14/24 15:36 08/14/24 15:54 08/14/24 15:54 Temperature Temperature Source Pulse Rate - Lying Pulse Rate - Sitting Pulse Rate - Standing Pulse Rate 71 78 Pulse Rate from SpO2 Sensor 36 L Respiratory Rate 18 25 H Blood Pressure - Lying Blood Pressure - Sitting Blood Pressure- Standing Blood Pressure 130/80 Blood Pressure Mean 106 Pulse Oximetry 96 Sepsis Recent Fever Within 48 Hours Sepsis New/Unexplained Change in Mental Status Sepsis Action Taken by Nursing 08/14/24 15:55 08/14/24 15:56 08/14/24 16:03 Temperature Temperature Source Pulse Rate - Lying 79 Pulse Rate - Sitting 78 Pulse Rate - Standing 83 Pulse Rate 78 Pulse Rate from SpO2 Sensor 69 Respiratory Rate 18 Blood Pressure - Lying 130/80 Blood Pressure - Sitting 119/82 Blood Pressure- Standing 105/80 Blood Pressure 119/82 Blood Pressure Mean 86 Pulse Oximetry 97 Sepsis Recent Fever Within 48 Hours Sepsis New/Unexplained Change in Mental Status Sepsis Action Taken by Nursing 08/14/24 16:06 08/14/24 16:11 08/14/24 16:11 Temperature Temperature Source Pulse Rate - Lying Pulse Rate - Sitting Pulse Rate - Standing Pulse Rate 72 Pulse Rate from SpO2 Sensor 64 Respiratory Rate 23 Blood Pressure - Lying Blood Pressure - Sitting Blood Pressure- Standing Blood Pressure 131/101 H 131/101 H Blood Pressure Mean 118 118 Pulse Oximetry 98 Sepsis Recent Fever Within 48 Hours Sepsis New/Unexplained Change in Mental Status Sepsis Action Taken by Nursing Laboratory Data 08/14/24 10:02 08/14/24 10:02 Lab Results 08/14/24 08/14/24 08/14/24 Range/Units 10:00 10:02 10:39 WBC 11.30 H (4.8-10.8) K/ul RBC 4.48 L (4.70-6.10) M/uL Hgb 12.3 L (14.0-18.0) g/dl Hct 38.4 L (42.0-52.0) % MCV 85.7 (80.0-100.0) fL MCH 27.5 (25.0-34.0) pg MCHC 32.0 (32.0-36.0) g/dL RDW Std Deviation 38.6 (36.4-46.3) fL RDW Coeff of Mindy 12.4 (11.5-14.5) % Plt Count 224 (130-400) K/uL MPV 9.5 (9.4-12.4) fL Immature Gran % (Auto) 0.3 % Neut % (Auto) 68.2 % Lymph % (Auto) 15.3 % Russell % (Auto) 9.6 % Eos % (Auto) 6.1 % Baso % (Auto) 0.5 % Neut # (Auto) 7.71 H (1.40-6.50) K/uL Lymph # (Auto) 1.73 (1.20-3.40) K/uL Russell # (Auto) 1.08 H (0.11-0.59) K/uL Eos # (Auto) 0.69 H (0.00-0.50) K/uL Baso # (Auto) 0.06 (0.00-0.20) K/uL Immature Gran # (Auto) 0.03 (0.01-0.20) K/uL PT Cancelled INR Cancelled Sodium 135 L (136-145) mmol/L Potassium 4.7 (3.5-5.1) mmol/L Chloride 102 (98-107) mmol/L Carbon Dioxide 27 (21-32) mmol/L Anion Gap 6 (3-11) BUN 18 (6-23) mg/dl Creatinine 1.41 H (0.6-1.4) mg/dl Est Cr Clr Drug Dosing 54.8 ml/min eGFR 52.29 BUN/Creatinine Ratio 12.8 (10-20) Glucose 101 H (70-99(Fasting)) mg/dl Lactate 1.2 (0.4-2.0) mmol/L Calcium 9.3 (8.6-10.3) mg/dl Magnesium 1.9 (1.7-2.4) mg/dl Total Bilirubin 1.1 H (0.2-1.0) mg/dl AST 17 (13-39) U/L ALT 11 (7-52) U/L Alkaline Phosphatase 76 (34-104) U/L Troponin I High Sens 8.8 (0-20) pg/ml Total Protein 7.5 (6.0-8.3) gm/dl Albumin 4.0 (3.4-5.0) gm/dl Globulin 3.5 (2.5-4.0) gm/dl Albumin/Globulin Ratio 1.1 (0.9-2) Procalcitonin (0-0.5) ng/ml TSH 4.312 (0.300-4.500) uIu/ml Urine Color Urine Appearance (Clear) Urine pH (4.5-7.5) Ur Specific [place] (1.000-1.030) Urine Protein (Negative) Urine Glucose (UA) (Negative) Urine Ketones (Negative) Urine Blood (Negative) Urine Nitrite (Negative) Urine Bilirubin (Negative) Urine Urobilinogen (Negative) Ur Leukocyte Esterase (Negative) Urine WBC (Auto) (0-5) /hpf Urine RBC (Auto) (0-2) /hpf U Hyaline Cast (Auto) (0-2) /lpf U Epithel Cells (Auto) (0-2) /hpf Urine Bacteria (Auto) (None Seen) Urine Mucus (None Prsent) Urine Comment Stl C. cayetanensis PCR Not Detected (NotDetected) Stool Rotavirus A PCR Not Detected (NotDetected) Stl Adenov F 40/41 PCR Not Detected (NotDetected) Stool Astrovirus (PCR) Not Detected (NotDetected) Stool Campylobacter PCR Not Detected (NotDetected) Stool Cryptosporidium PCR Not Detected (NotDetected) Stl E.coli Shiga Tox PCR Not Detected (NotDetected) Stl Enterotoxigenic E PCR Not Detected (NotDetected) Stool EPEC (PCR) Not Detected (NotDetected) Stool EAEC (PCR) Not Detected (NotDetected) Stl E. histolytica PCR Not Detected (NotDetected) Stool Giardia Lamblia PCR Not Detected (NotDetected) Stool Salmonella PCR Not Detected (NotDetected) Stool Sapovirus (PCR) Not Detected (NotDetected) Stl P. shigelloides PCR Not Detected (NotDetected) Stl Shigella/EIEC PCR Not Detected (NotDetected) St Y.enterocolitica PCR Not Detected (NotDetected) Stool Vibrio (PCR) Not Detected (NotDetected) Stl Vibrio cholerae PCR Not Detected (NotDetected) Stl Norovirus GI/GII PCR Not Detected (NotDetected) Adenovirus (PCR) Not Detected (NotDetected) Anaplasma Smear See Comment Babesia Smear See Comment B. pertussis DNA (PCR) Not Detected (NotDetected) B.parapertussis DNA PCR Not Detected (NotDetected) Lyme Disease Screen Negative (Negative) C. pneumoniae DNA (PCR) Not Detected (NotDetected) Coronavirus OC43 (PCR) Not Detected (NotDetected) Coronavirus HKU1 (PCR) Not Detected (NotDetected) Coronavirus 229E (PCR) Not Detected (NotDetected) SARS-CoV-2 (PCR) Not Detected (NotDetected) Coronavirus NL63 (PCR) Not Detected (NotDetected) Human Metapneumovir PCR Not Detected (NotDetected) Influenza Type A (PCR) Not Detected (NotDetected) Influenza Type B (PCR) Not Detected (NotDetected) M. pneumoniae (PCR) Not Detected (NotDetected) Parainfluenza 1 (PCR) Not Detected (NotDetected) Parainfluenza 2 (PCR) Not Detected (NotDetected) Parainfluenza 3 (PCR) Not Detected (NotDetected) Parainfluenza 4 (PCR) Not Detected (NotDetected) RSV (PCR) Not Detected (NotDetected) Entero/Rhino (PCR) Not Detected (NotDetected) 08/14/24 08/14/24 Range/Units 11:20 11:21 WBC (4.8-10.8) K/ul RBC (4.70-6.10) M/uL Hgb (14.0-18.0) g/dl Hct (42.0-52.0) % MCV (80.0-100.0) fL MCH (25.0-34.0) pg MCHC (32.0-36.0) g/dL RDW Std Deviation (36.4-46.3) fL RDW Coeff of Mindy (11.5-14.5) % Plt Count (130-400) K/uL MPV (9.4-12.4) fL Immature Gran % (Auto) % Neut % (Auto) % Lymph % (Auto) % Russell % (Auto) % Eos % (Auto) % Baso % (Auto) % Neut # (Auto) (1.40-6.50) K/uL Lymph # (Auto) (1.20-3.40) K/uL Russell # (Auto) (0.11-0.59) K/uL Eos # (Auto) (0.00-0.50) K/uL Baso # (Auto) (0.00-0.20) K/uL Immature Gran # (Auto) (0.01-0.20) K/uL PT 11.7 INR 1.1 Sodium (136-145) mmol/L Potassium (3.5-5.1) mmol/L Chloride (98-107) mmol/L Carbon Dioxide (21-32) mmol/L Anion Gap (3-11) BUN (6-23) mg/dl Creatinine (0.6-1.4) mg/dl Est Cr Clr Drug Dosing ml/min eGFR BUN/Creatinine Ratio (10-20) Glucose (70-99(Fasting)) mg/dl Lactate (0.4-2.0) mmol/L Calcium (8.6-10.3) mg/dl Magnesium (1.7-2.4) mg/dl Total Bilirubin (0.2-1.0) mg/dl AST (13-39) U/L ALT (7-52) U/L Alkaline Phosphatase (34-104) U/L Troponin I High Sens (0-20) pg/ml Total Protein (6.0-8.3) gm/dl Albumin (3.4-5.0) gm/dl Globulin (2.5-4.0) gm/dl Albumin/Globulin Ratio (0.9-2) Procalcitonin < 0.02 (0-0.5) ng/ml TSH (0.300-4.500) uIu/ml Urine Color Yellow Urine Appearance Clear (Clear) Urine pH 6.5 (4.5-7.5) Ur Specific [place] 1.023 (1.000-1.030) Urine Protein 1+ H (Negative) Urine Glucose (UA) Negative (Negative) Urine Ketones Trace H (Negative) Urine Blood Negative (Negative) Urine Nitrite Negative (Negative) Urine Bilirubin Negative (Negative) Urine Urobilinogen Negative (Negative) Ur Leukocyte Esterase Negative (Negative) Urine WBC (Auto) 0-5 (0-5) /hpf Urine RBC (Auto) 0-2 (0-2) /hpf U Hyaline Cast (Auto) 3-5 H (0-2) /lpf U Epithel Cells (Auto) 0-2 (0-2) /hpf Urine Bacteria (Auto) None Seen (None Seen) Urine Mucus Present A (None Prsent) Urine Comment Stl C. cayetanensis PCR (NotDetected) Stool Rotavirus A PCR (NotDetected) Stl Adenov F 40/41 PCR (NotDetected) Stool Astrovirus (PCR) (NotDetected) Stool Campylobacter PCR (NotDetected) Stool Cryptosporidium PCR (NotDetected) Stl E.coli Shiga Tox PCR (NotDetected) Stl Enterotoxigenic E PCR (NotDetected) Stool EPEC (PCR) (NotDetected) Stool EAEC (PCR) (NotDetected) Stl E. histolytica PCR (NotDetected) Stool Giardia Lamblia PCR (NotDetected) Stool Salmonella PCR (NotDetected) Stool Sapovirus (PCR) (NotDetected) Stl P. shigelloides PCR (NotDetected) Stl Shigella/EIEC PCR (NotDetected) St Y.enterocolitica PCR (NotDetected) Stool Vibrio (PCR) (NotDetected) Stl Vibrio cholerae PCR (NotDetected) Stl Norovirus GI/GII PCR (NotDetected) Adenovirus (PCR) (NotDetected) Anaplasma Smear Babesia Smear B. pertussis DNA (PCR) (NotDetected) B.parapertussis DNA PCR (NotDetected) Lyme Disease Screen (Negative) C. pneumoniae DNA (PCR) (NotDetected) Coronavirus OC43 (PCR) (NotDetected) Coronavirus HKU1 (PCR) (NotDetected) Coronavirus 229E (PCR) (NotDetected) SARS-CoV-2 (PCR) (NotDetected) Coronavirus NL63 (PCR) (NotDetected) Human Metapneumovir PCR (NotDetected) Influenza Type A (PCR) (NotDetected) Influenza Type B (PCR) (NotDetected) M. pneumoniae (PCR) (NotDetected) Parainfluenza 1 (PCR) (NotDetected) Parainfluenza 2 (PCR) (NotDetected) Parainfluenza 3 (PCR) (NotDetected) Parainfluenza 4 (PCR) (NotDetected) RSV (PCR) (NotDetected) Entero/Rhino (PCR) (NotDetected) Administered Medications Sodium Chloride (Nss) 1,000 mls @ 999 mls/hr IV .Q1H1M ONE Stop: 08/14/24 17:35 Last Admin: 08/14/24 16:44 Dose: 999 mls/hr Documented By: GAGAN Imaging Data Radiologist's Impression: Chest X-Ray 08/14/24 09:53 XR chest 1V portable CLINICAL HISTORY: weakness COMPARISON STUDY: 07/28/2024 FINDINGS: Stable mitral valve repair. Stable mild cardiomegaly without pulmonary vascular congestion. There is interval mild hazy opacity at the right base with mild blunting of the right costophrenic angle. No pneumothorax. IMPRESSION: Likely small right pleural effusion and mild associated right lung base consolidation. ACT 112: Negative or not required by law. Electronically signed by: Jaya Silva M.D. 08/14/2024 10:51 AM Discharge Plan Visit Data Chief Complaint: Illness Stated Complaint: EXTREME FATIGUE ED Provider: Berkley Lazar Discharge Problem: Generalized weakness Condition: Fair Forms Stand Alone Forms: My [facility] Prescriptions Prescriptions: No Action omeprazole 20 mg capsule,delayed release(DR/EC) 40 mg PO QAM amiodarone 200 mg tablet 200 mg PO UD Rx Instructions: original:200mg po daily 08/14-Last filled 07/12/24 30 day supply #30 aspirin 81 mg tablet,delayed release (DR/EC) 81 mg PO DAILY metoprolol succinate 25 mg tablet extended release 24 hr 25 mg PO DAILY lorazepam 0.5 mg tablet 0.5 mg PO TID PRN (Reason: Anxiety) sertraline 25 mg tablet 25 mg PO DAILY Referrals Referrals: Demetrio Mills MD [Primary Care Provider] -
[2024-08-14 10:17] LABS: Basophils # (auto) 0.06 K/uL (0.00-0.20); Basophils % (auto) 0.5 %; Eosinophils # (auto) 0.69 K/uL (0.00-0.50); Eosinophils % (auto) 6.1 %; Hematocrit (blood only) 38.4 % (42.0-52.0); Hemoglobin 12.3 g/dl (14.0-18.0); Immature Granulocytes # (auto) 0.03 K/uL (0.01-0.20); Immature Granulocytes % (auto) 0.3 %; Lymphocytes # (auto) 1.73 K/uL (1.20-3.40); Lymphocytes % (auto) 15.3 %; Mean Corpuscular Hemoglobin 27.5 pg (25.0-34.0); Mean Corpuscular Volume 85.7 fL (80.0-100.0); Mean Platelet Volume 9.5 fL (9.4-12.4); Monocytes # (auto) 1.08 K/uL (0.11-0.59); Monocytes % (auto) 9.6 %; Neutrophils # (auto) 7.71 K/uL (1.40-6.50); Neutrophils % (auto) 68.2 %; Platelet Count 224 K/uL (130-400); RDW Coefficient of Variation 12.4 % (11.5-14.5); RDW Standard Deviation 38.6 fL (36.4-46.3); Red Blood Count 4.48 M/uL (4.70-6.10)
[2024-08-14 10:39] LABS: Albumin Globulin Ratio 1.1 (0.9-2); BUN Creatinine Ratio 12.8 (10-20); Bilirubin,Total 1.1 mg/dl (0.2-1.0); Calcium 9.3 mg/dl (8.6-10.3); Creatinine Clr Calc Pharmacy 54.8 ml/min; Globulin 3.5 gm/dl (2.5-4.0); Magnesium 1.9 mg/dl (1.7-2.4); Potassium 4.7 mmol/L (3.5-5.1); Total Protein 7.5 gm/dl (6.0-8.3)
[2024-08-14 10:45] LABS: Troponin I High Sensitivity 8.8 pg/ml (0-20)
--- NOTE | 2024-08-14 10:53 | XRay Report ---
XR chest 1V portable CLINICAL HISTORY: weakness COMPARISON STUDY: 07/28/2024 FINDINGS: Stable mitral valve repair. Stable mild cardiomegaly without pulmonary vascular congestion. There is interval mild hazy opacity at the right base with mild blunting of the right costophrenic a ngle. No pneumothorax. IMPRESSION: Likely small right pleural effusion and mild associated right lung base consolidation. ACT 112: Negative or not required by law. Electronically signed by: Jaya Silva M.D. 08/14/2024 10:51 AM
[2024-08-14 10:54] LABS: Thyroid Stimulating Hormone 4.312 uIu/ml (0.300-4.500)
[2024-08-14 11:05] LABS: Adenovirus PCR Not Detected (NotDetected); Bordetella parapertussis PCR Not Detected (NotDetected); Bordetella pertussis PCR Not Detected (NotDetected); Chlamydia pneumoniae PCR Not Detected (NotDetected); Coronavirus 229E PCR Not Detected (NotDetected); Coronavirus CoV-2 (COVID19)PCR Not Detected (NotDetected); Coronavirus HKU1 PCR Not Detected (NotDetected); Coronavirus NL63 PCR Not Detected (NotDetected); Coronavirus OC43PCR Not Detected (NotDetected); Human Metapneumovirus PCR Not Detected (NotDetected); Influenza A PCR Not Detected (NotDetected); Influenza B PCR Not Detected (NotDetected); Mycoplasma pneumoniae PCR Not Detected (NotDetected); Parainfluenza Virus 1 PCR Not Detected (NotDetected); Parainfluenza Virus 2 PCR Not Detected (NotDetected); Parainfluenza Virus 3 PCR Not Detected (NotDetected); Parainfluenza Virus 4 PCR Not Detected (NotDetected); Respiratory Syncytial VirusPCR Not Detected (NotDetected); Rhinovirus/Enterovirus PCR Not Detected (NotDetected)
[2024-08-14 11:32] LABS: Adenovirus F 40/41 PCR Not Detected (NotDetected); Astrovirus PCR Not Detected (NotDetected); Campylobacter PCR Not Detected (NotDetected); Cryptosporidium PCR Not Detected (NotDetected); Cyclospora cayetanensis PCR Not Detected (NotDetected); Entamoeba histolytica PCR Not Detected (NotDetected); Enteroaggregative E.coli(EAEC) Not Detected (NotDetected); Enteropathogenic E.coli (EPEC) Not Detected (NotDetected); Enterotoxigenic E.coli (ETEC) Not Detected (NotDetected); Giardia lamblia PCR Not Detected (NotDetected); Norovirus GI/GII PCR Not Detected (NotDetected); Plesiomonas shigelloides PCR Not Detected (NotDetected); Rotavirus A PCR Not Detected (NotDetected); Salmonella PCR Not Detected (NotDetected); Sapovirus PCR Not Detected (NotDetected); Shiga-like Toxin E.coli (STEC) Not Detected (NotDetected); Shigella/Enteroinvasive E.coli Not Detected (NotDetected); Vibrio cholerae PCR Not Detected (NotDetected); Vibrio species PCR Not Detected (NotDetected); Yersinia enterocolitica PCR Not Detected (NotDetected)
[2024-08-14 12:10] LABS: INR 1.1 (0.9-1.1); Prothrombin Time 11.7 Seconds (9.0-12.0)
[2024-08-14 12:51] LABS: Appearance Urine Clear (Clear); Bacteria Urine Automated None Seen (None Seen); Bilirubin Urine Negative (Negative); Blood Urine Negative (Negative); Color Urine Yellow; Epithelial Cell Urine Auto 0-2 /hpf (0-2); Glucose Urine UA Negative (Negative); Ketones Urine Trace (Negative); Leukocyte Esterase Urine Negative (Negative); Mucus Urine Present (None Prsent); Nitrite Urine Negative (Negative); Protein Urine 1+ (Negative); RBC Urine Automated 0-2 /hpf (0-2); Specific Gravity Urine 1.023 (1.000-1.030); Urobilinogen Urine Negative (Negative); WBC Urine Automated 0-5 /hpf (0-5); pH Urine 6.5 (4.5-7.5)
--- NOTE | 2024-08-14 13:45 | Electrocardiogram Report ---
Test Reason : Blood Pressure : */* mmHG Vent. Rate : 76 BPM Atrial Rate : 76 BPM P-R Int : * ms QRS Dur : 84 ms QT Int : 364 ms P-R-T Axes : * 49 -62 degrees QTcB Int : 409 ms Normal sinus rhythm Premature atrial complexes in a pattern of bigeminy Nonspecific ST and T wave abnormality Abnormal ECG When compared with ECG of 28-Jul-2024 12:55, No significant change Confirmed by Stone Lima ([id number]) on 08/14/2024 1:44:55 PM Referred By: REFERRED SELF Confirmed By: Stone Lima
[2024-08-14] MEDS: SODIUM CHLORIDE 0.9% 1,000 ML IV ONE (16:44)
--- NOTE | 2024-08-14 16:53 | History & Physical Report ---
Date of Service August 14, 2024 Assessment & Plan (1) Generalized weakness: (2) HTN (hypertension): (3) Depression: Plan Mr. Mantilla is a 74 year old male that presents to the ED today with Vague symptoms of worsening fatigue and weakness that originally started a few years ago but has been more persistent over the last 2 weeks. He states that his exhaustion has been interfering with his daily activities. He reports that he wakes up in the morning on his own but has difficulty with showering due to his generalized exhaustion. In recent days he has had some dizziness with ambulating. Underwent a mitral valve repair at [facility] on 07/07/2024 and has a follow-up there on 08/20. He recently did have norovirus a few weeks ago. Patient will be admitted for further evaluation and management of his chronic fatigue and weakness. Given his recent MVR and dizziness will involve Cardiology, check ortho BPs, given recent pleural effusion and consolidation, will obtain Chest CT and start Rocephin + Doxy with probiotic. Given recent weight loss and stool changes, will obtain CTAP. To address weakness, will order anemia panel, PT/OT, A1C and monitor Generalized weakness and fatigue: recent weight loss 10# over past month mild leukocytosis WBC 11.3; most recent outpatient blood work indicated WBC was 13.07 on 08/04 10#weight loss over the last month Lyme's test negative UA normal, TSH 4.3 Procal negative; recently did have rhinovirus. biofire negative today Given outlined below will obtain chest CT and CTAP Anemia panel ordered OPT ESR mildly elevated 68. No point or joint tenderness identified on exam PT/OT placed s/p Mitral valve repair: Intermittent dizziness: 07/07 at [facility] Has a follow-up scheduled 08/20 Ortho BPs Most recent echo 08/11/2024; EF 50 to 54%, RV mild dilation, LV wall motion normal. Cards consult placed Cellulitis: Status post mitral valve repair robotic entry lateral insertion site with erythema and warmth to touch Empirically treat with ceftriaxone plus Doxy for now; adjust as necessary No obvious culture opportunity Pleural effusion: Chest x-ray indicates worsening pleural effusion/consolidation Mild leukocytosis 11.[address] with moderate pleural effusion without hypoxia Pulmonary consult placed for evaluation for possible thoracentesis Abnormal stool: [place] green stool identified today; isolated incident last C-scope 2019; polyps identified; colonoscopy/EGD plus [place] pH scheduled for 08/27 No reproducible abdominal pain Active bowel sounds on exam Stool biofire negative; no history of CD Add CD given recent abx use. Disposition: PCP: Dr. Mills Code Status: Full VTE Prophylaxis: Teds and SCDs for now I spent a total of 81 minutes coordinating, documenting, and providing care for this patient excluding time spent inthe performance of separately billed serv ices or time spent by another provider/QHP. History of Present Illness Chief Complaint: fatigue/weakness Primary Care Provider: Demetrio Mills MD Mr. Mantilla is a 74 year old male that presents to the ED today with Vague symptoms of worsening fatigue and weakness that originally started a few years ago but has been more persistent over the last 2 weeks. He states that his exhaustion has been interfering with his daily activities. He reports that he wakes up in the morning on his own but has difficulty with showering due to his generalized exhaustion. In recent days he has had some dizziness with ambulating. He most recently underwent a mitral valve repair at [facility] on 07/07/2024 and has a follow-up there on 08/20. Today there was an isolated incidence of having a bright [place] green bowel movement. He denies any ingestion of artificial dyes, leafy vegetable ingestion. He reports that the only unusual dietary change was that yesterday he did eat an unusual hard cheese. He most recently was diagnosed with small bowel bacterial overgrowth for which he did complete a course of Augmentin on 08/12. He does not have a history of C. difficile and he does his gallbladder. He denies any sick contact or recent travel. He is retired and has worked at a [employer] as a [place]. He denies tobacco, alcohol or recreational drug use. His last colonoscopy was in 2019 with identified polyps. He does have a colonoscopy/EGD and [place] pH test scheduled for August 27. No Crohn's or celiac disease identified to date. In the ED a chest x-ray was obtained indicating pleural effusions with additional consolidation today versus comparison to 07/28. Chest CT does indicate moderate pleural effusions. He is aware of his pleural effusion but does not contribute to any shortness of breath or hypoxia. Most recent echocardiogram was 08/11/2024; EF 50 to 54%, RV mild dilation, LV wall motion normal. Labs in the ED Identified mild leukocytosis WBC 11.3; most recent outpatient blood work indicated WBC was 13.07 on 08/04 however patient identified that he did recently have rhinovirus a few weeks ago. Electrolytes unremarkable, negative troponin, procalcitonin negative, Lyme screening negative, UA normal,TSH normal 4.3 no transaminitis. Creatinine 1.41; baseline 1.3. Most recently an ESR was checked as an outpatient mildly elevated at 38 on 08/04/2024. He has a PMH that includes: HTN, anxiety and depression, GERD, small bowel bacterial overgrowth, mitral valve regurgitation. On examination, patient is AO x 4 and in no apparent distress laying in his hospital bed. Mitral valve repair was performed via robot and on the right lateral insertion site there are signs of erythema and a thick dermal scab which could indicate infection. No adventitious lung sounds identified. No reproducible abdominal pain. Patient does have active x 4 bowel sounds. No CVA tenderness or spinal point tenderness. No peripheral joint tenderness identified. He denies chest pain, shortness of breath, nausea, vomiting, abdominal pain or tenderness. Denies tinnitus, visual or changes, joint tenderness, urinary changes, recent falls or trauma. No focal or neuro deficits noted. Patient will be admitted for further evaluation and management of his chronic fatigue and weakness. Given his recent MVR and dizziness will involve Cardiology, check ortho BPs, given recent pleural effusion and consolidation, will obtain Chest CT and start Rocephin + Doxy with probiotic. Given recent weight loss and stool changes, will obtain CTAP. To address weakness, will order anemia panel, PT/OT, A1C and monitor. Please see A/P for further details. Allergies Allergy/AdvReac Type Severity Reaction Status Date / Time No Known Allergies Allergy Verified 07/28/24 16:50 Home Medications Medication Instructions Recorded Confirmed Type omeprazole 20 mg capsule,delayed 40 mg PO QAM 03/20/24 08/14/24 History release aspirin 81 mg tablet,delayed 81 mg PO DAILY 07/28/24 08/14/24 History release metoprolol succinate 25 mg 25 mg PO DAILY 07/28/24 08/14/24 History tablet,extended release 24 hr lorazepam 0.5 mg tablet 0.5 mg PO TID PRN Anxiety 08/14/24 08/14/24 History sertraline 25 mg tablet 25 mg PO DAILY 08/14/24 08/14/24 History Past Med/Surg History Problem List (Updated 08/14/24 @ 16:51 by KARL Alas) Depression HTN (hypertension) Influenza A (H1N1) (Acute) Generalized weakness (Acute) Medical History Acute kidney injury superimposed on chronic kidney disease Enterocolitis Intractable nausea and vomiting GERD (gastroesophageal reflux disease) IBS (irritable bowel syndrome) Rupture of right Achilles tendon Social History Smoking Status: Never smoker Hx Alcohol Use: No Hx Substance Use: No Preferred Language: [place] Communication Ability: Effective [place] House Supervisor Required: No Beliefs That Will Affect Care: None Current Living Situation: Spouse Feels Safe at Home: Yes Safety Concerns: Feels Safe At This Time Assistive Devices: Glasses and Hearing Aid - Bilateral Review of Systems Review of Systems: Neuro: (-) Falls, trauma, slurred speech HEENT: (-) DENG, dizziness, dysphagia, visual or auditory changes CV: (-) CP, palpitations, swelling Resp: (-) SOB GI: (-) appetite changes, N/V/D, bowel changes : (-) urinary changes Skin: (-) rashes Psych: (-) anxiety, depression Physical Exam Physical Exam: Neuro: AAOx4, PERRLA, no aphagia, memory changes, CNII-XII grossly intact HEENT: head normocephalic, moist mucus membranes CV: S1/S2, (-) M/G/R, (-) edema, cap refill < 3 seconds Resp: Lungs CTA in all romero. On RA GI: Abdomen S/NT/ND, Ax4 bowel sounds, (-) CVA tenderness Musculoskeletal: 5/5 B/L UE strength, 5/5 B/L LE strength. No gait disturbance Skin: (-) rashes , (-) erythema. Psych: euthymic mood Results & Data Results & Data Vital Signs (Past 12 Hours) Vital Signs Temp Pulse Resp BP Pulse Ox 08/14/24 16:11 131/101 H 08/14/24 16:11 131/101 H 08/14/24 16:06 72 23 98 08/14/24 16:03 78 18 97 08/14/24 15:55 119/82 08/14/24 15:54 78 25 H 08/14/24 15:54 130/80 08/14/24 15:36 71 18 96 08/14/24 15:30 127/75 08/14/24 15:30 127/75 08/14/24 15:27 71 17 95 08/14/24 15:03 72 19 115/85 96 08/14/24 14:30 78 19 96 08/14/24 14:17 77 08/14/24 14:00 76 18 120/69 93 08/14/24 13:31 77 118/73 94 08/14/24 13:00 80 18 117/72 95 08/14/24 12:30 71 14 125/74 97 08/14/24 12:00 70 121/74 96 08/14/24 11:42 77 133/74 96 08/14/24 11:00 78 14 138/77 94 08/14/24 10:30 78 12 127/78 08/14/24 10:29 72 08/14/24 10:00 76 17 132/83 08/14/24 09:42 99 08/14/24 09:42 36.6 C 84 18 132/84 99 Laboratory Results Short CBC 08/14/24 Range/Units 10:02 WBC 11.30 H (4.8-10.8) K/ul Hgb 12.3 L (14.0-18.0) g/dl Hct 38.4 L (42.0-52.0) % Plt Count 224 (130-400) K/uL BMP 08/14/24 10:02 Sodium 135 L Potassium 4.7 Chloride 102 Carbon Dioxide 27 BUN 18 Creatinine 1.41 H Glucose 101 H Calcium 9.3 Liver Function 08/14/24 Range/Units 10:02 Total Bilirubin 1.1 H (0.2-1.0) mg/dl AST 17 (13-39) U/L ALT 11 (7-52) U/L Alkaline Phosphatase 76 (34-104) U/L Albumin 4.0 (3.4-5.0) gm/dl Urine 08/14/24 Range/Units 11:20 Urine Color Yellow Urine Appearance Clear (Clear) Urine pH 6.5 (4.5-7.5) Ur Specific [place] 1.023 (1.000-1.030) Urine Protein 1+ H (Negative) Urine Glucose (UA) Negative (Negative) Diagnostic Findings Chest X-Ray 08/14/24 09:53 XR chest 1V portable CLINICAL HISTORY: weakness COMPARISON STUDY: 07/28/2024 FINDINGS: Stable mitral valve repair. Stable mild cardiomegaly without pulmonary vascular congestion. There is interval mild hazy opacity at the right base with mild blunting of the right costophrenic angle. No pneumothorax. IMPRESSION: Likely small right pleural effusion and mild associated right lung base consolidation. ACT 112: Negative or not required by law. Electronically signed by: Jaya Silva M.D. 08/14/2024 10:51 AM Code Status & VTE Plan Code Status Full Code in the event of cardiac or respiratory arrest VTE Prophylaxis Plan VTE Prophylaxis will be ordered: Yes Supervising Physician Co-Signing Physician Notes Patient seen and examined at bedside. Discussed with above provider. He presents with generalized weakness and fatigue. Chest x-ray shows increase in right-sided pleural effusion compared to previous day. Will get pulmonology input regarding the effusion. Started on empiric antibiotic. I have reviewed the advanced practitioner's documentation, and I agree with, and take responsibility for the plan of care I spent a total of 30 minutes coordinating, documenting, and providing care for this patient excluding time spent in the performance of separately billed services. All of the aforementioned completed while collaborating with the assigned advanced practitioner for a full treatment plan
[2024-08-14] MEDS: cefTRIAXone SODIUM 2,000 MG/50 ML BAG IV STA (18:22)
[2024-08-14 19:00] LABS: Ferritin 229.1 ng/ml (8-388)
--- NOTE | 2024-08-14 20:00 | CT Scan Report ---
EXAM: CT chest diagnostic wo con CLINICAL HISTORY: Pleural effusion/consolidation. TECHNIQUE: Contiguous axial CT images of the chest were acquired without administration of intravenous contrast. Coronal and sagittal reconstructions were obtained. One of the following dose reduction techniques were utilized for this exam: Automated exposure control, adjustment of the mA and/or kV according to patient size, use of iterative reconstruction. COMPARISON: None. FINDINGS: Lungs: The lung parenchyma is clear with no evidence of consolidation, collapse, or focal lesions. No pulmonary nodules or masses are identified. No evidence of interstitial lung disease or emphysema. Multiple fibroatelectatic bands are seen involving the middle lobe as well as left lower lung lobe. Mild right pleural effusion is noted with underlying partial lung consolidation/collapse. Mediastinum: The mediastinum is normal in size and contour. No mediastinal mass or abnormal lymphadenopathy. The heart size is within normal limits. The ascending aorta is mild dilated measuring 4 cm for follow up. Hilar Structures: The hilar structures appear normal without enlargement or abnormality. No atheromatous calcifications of the aorta or coronary arteries. Trachea and Main Bronchi: The trachea and main bronchi are patent without evidence of obstruction or abnormality. Chest Wall: The chest wall is unremarkable with no evidence of soft tissue or bony abnormalities. Spondylodegenerative changes of the thoracic spine are noted. Upper Abdomen: Visualized portions of the liver, spleen, adrenal glands, and left kidney are unremarkable. Few right renal cortical cysts are noted. Bones: Visualized osseous structures are normal, no evidence of fracture or lytic/sclerotic lesions. IMPRESSION: Mild right pleural effusion. Electronically signed by Vahid Taveras 08-14-2024 8:00 PM
[2024-08-14] MEDS ORDERED: ONDANSETRON INJ 2 MG/ML 2 ML VIAL IV PRN (20:05)
[2024-08-14] MEDS ORDERED: POLYETHYLENE (MIRALAX) 17 GM PACK PO PRN (20:05)
[2024-08-14] MEDS ORDERED: ALUMINUM/MAGNESIUM SUSP 30 ML UDC PO PRN (20:05)
[2024-08-14] MEDS ORDERED: MAGNESIUM HYDROXIDE SUSP 30 ML UDC PO PRN (20:05)
--- NOTE | 2024-08-14 20:42 | CT Scan Report ---
EXAM: CT abd pelvis wo con CLINICAL HISTORY: stool changes TECHNIQUE: Non-contrast CT of the abdomen and pelvis was performed, with the following protocol: axial images, and reconstructed coronal and sagittal images. One of the following dose reduction techniques was utilized for this exam: Automated exposure control, adjustment of the mA and/or kV according to patient size, and use of iterative reconstruction. COMPARISON: No prior studies available for comparison. FINDINGS: Abdomen: Liver: Normal in size, shape, and density. No focal lesions, cysts, or masses were identified. Gallbladder and Biliary System: No wall thickening, pericholecystic fluid, or dense gallstones were identified. Pancreas: Pancreatic head, body, and tail are visualized and appear normal in size and density. No pancreatic masses or calcifications were noted. Spleen: Normal in size, shape, and density. No splenic lesions or masses were identified. Appendix: The appendix is normal in size without andriy appendiceal fat stranding, and without an appendicolith. No evidence of appendiceal abscess or perforation. Kidneys and Adrenal Glands: Both kidneys are normal in size, shape, and position. Cortical thickness is within normal limits. No renal calculi or hydronephrosis. Bilateral simple renal cortical cysts , the largest is in the left side, measuring 46x44 mm Adrenal glands are unremarkable. Abdominal Aorta and Vessels: The abdominal aorta and major branches are patent without evidence of an aneurysm or significant atherosclerosis. Pelvis: Urinary Bladder: Normal in contour and wall thickness. No intraluminal lesions. Prostate: Normal in size and contour. No masses or abnormal thickening. Seminal Vesicles: Normal appearance without abnormal enlargement or mass. Peritoneal and Retroperitoneal Structures: No free fluid or abnormal fluid collections were identified within the abdomen or pelvis. No lymphadenopathy was noted. Bowel: The visualized bowel loops are normal in caliber and appearance. No evidence of bowel obstruction or wall thickening. Bones and Soft Tissues: Degenerative changes of the scanned spine with mild right-sided scoliosis Right inguinal area of subcutenous tissue thickening with surgical clips ,likly postoperative scarring chest cuts : discussed in CT chest. IMPRESSION: 1. No evidence of acute intra-abdominal pathology. 2. Bilateral renal simple cortical cysts ([place] 1) Electronically signed by Vahid Taveras 08-14-2024 8:41 PM
[2024-08-14] MEDS: DOXYCYCLINE HYCLATE 100 MG in DEXTROSE 5% MINI-B 100 ML IV STA (21:19)
[2024-08-15 00:08] LABS: Reticulocyte % 1.17 % (0.50-2.00)
[2024-08-15 07:18] LABS: Hematocrit (blood only) 35.3 % (42.0-52.0); Hemoglobin 11.7 g/dl (14.0-18.0); Mean Corpuscular Hemoglobin 28.3 pg (25.0-34.0); Mean Corpuscular Hgb Conc 33.1 g/dL (32.0-36.0); Mean Corpuscular Volume 85.3 fL (80.0-100.0); Mean Platelet Volume 9.8 fL (9.4-12.4); Platelet Count 212 K/uL (130-400); RDW Coefficient of Variation 12.2 % (11.5-14.5); Red Blood Count 4.14 M/uL (4.70-6.10); White Blood Count 8.63 K/ul (4.8-10.8)
[2024-08-15 07:33] LABS: Estimated Average Glucose 117 mg/dl; Hemoglobin A1C 5.7 % (4.5-5.6)
[2024-08-15 07:36] LABS: BUN Creatinine Ratio 11.9 (10-20); Calcium 8.9 mg/dl (8.6-10.3); Creatinine Clr Calc Pharmacy 57.2 ml/min; Phosphorus 4.4 mg/dl (2.5-4.9); Potassium 4.4 mmol/L (3.5-5.1)
[2024-08-15] MEDS ORDERED: VANCOMYCIN CONSULT ACTIVE PRN (07:43)
--- NOTE | 2024-08-15 07:55 | Hospitalist Progress Note ---
Date of Service August 15, 2024 Assessment & Plan (1) Fatigue: (2) Generalized weakness: (3) History of mitral valve repair: (4) Pleural effusion, right: (5) Abnormal stool color: Plan Patient is a 74-year-old male with past medical history significant for enlarged LA, symptomatic PVCs, HTN, IBS, GERD, CKD stage IIIa [baseline Cr 1.2-1.4] and other problems listed below who presented to the ED for evaluation on 08/14/24 due to worsening fatigue and weakness over the past 2 weeks. Fatigue with significant degree of impact on ADLs. Also has been experiencing ambulatory dizziness. Of note, patient recently underwent mitral valve repair at [facility] on 07/07/24 due to history of severe nonrheumatic MVR. P ostoperative course c/b development of R-sided pleural effusion which required chest tube placement. He is scheduled to follow-up at [facility] on 08/20/24. TTE, 08/11/24: LVEF = 50-54%, mildly dilated RV, mild AVR, mild TR, mild enlarged proximal ascending thoracic aorta. #Generalized weakness, fatigue #Ambulatory dizziness #Recent robotic entry MVR on 07/07/24 @ [facility] 2/2 severe nonrheumatic MVR #Cellulitic appearance of R lateral MV repair insertion site Unintentional 10lb weight loss over past month Lyme screen negative Procal negative; recently had Rhinovirus Resp BioFire negative UA negative TSH WNL Check ESR, CRP (o/p ESR 38 on 08/04) Erythema noted around MV repair R lateral insertion site, also warm to touch but nontender (pic in exam portion) Initially started on Rocephin/doxy - stopped Broad spec cx w/ vanc/Zosyn for now given h/o recent MV repair Check blood cxs Telemetry benign Cards consulted PT/OT evals Anemia eval pending, H/H remains stable Continue ASA #Mild R pleural effusion noted on chest CT w/o evidence of hypoxia No resp complaints Continue to monitor #Abnormal stool --> jamul green stools x 2 since yesterday #History of small bowel bacterial overgow C-scope 11/2019: one 5mm polyp 50cm proximal to the anus (removed w/ cold snare), otherwise unremarkable Stool PCR negative Recently completed Augmentin course on 08/02 for tx of SIBO CTAP grossly unremarkable C. diff studies negative F/w [facility] Scheduled for EGD + R[place]HERFORD and colonscopy on 08/27/24 #CKD stage IIIa Baseline Cr 1.2-1.4 Renal fx remains stable Continue to monitor Avoid nephrotoxic agents as able #Incidental CTAP finding Bilateral renal simple cortical cysts noted on CTAP O/p monitoring advised #History of symptomatic PACs #HTN Continue Toprol-XL #Anxiety Continue Zoloft #GERD Continue PPI DVT Prophylaxis: SCDs/TEDs PCP: Demetrio Mills MD Disposition: F/u TTE results, blood cxs Patient seen in collaboration with Dr. Roy. Please see addendum. I spent a total of 42 minutes coordinating, documenting, and providing care for this patient excluding time spent in the performance of separately billed services or time spent by another provider/QHP. This included personally reviewing all current laboratories and imaging studies, medical reconciliation, outpatient chart review and discussion with specialists. This chart was completed in part utilizing Speech Voice Recognition Software. Grammatical errors, random word insertions, pronoun errors, and incomplete sentences are an occasional consequence of this system due to software limitations, ambient noise, and hardware issues. Any formal questions or concerns about the content, text, or information contained within the body of this dictation should be directly addressed to the provider for clarification. Admission and Anticipated Discharge Date Admission Date: August 14, 2024 Supervising Physician Co-Signing Physician Notes Patient seen and examined at bedside. in room as well. Patient has had fatigue, weakness for about 1.5 years. Appears to be getting worse. Patient states he is so tired he does not want to get up in the morning. States that these symptoms have been going on even with the mitral valve repair. Otherwise, has still be doing ADLs at home. On exam, no sarcopenia noted, 5/5 strength in all extremities, no clear murmur auscultated. Right chest wall with prior surgical wounds (healing adequately) and some scabbing noted without significant erythema. CT chest with small pleural effusion, echo with normal EF and no obvious vegetation. Elevated ESR/CRP suggestive of ongoing infectious etiology. No localizing weakness. TSH WNL, vitamin B12/folic acid WNL, Hgb relatively unremarkable (around baseline), iron workup unremarkable Cardiology was consulted this morning given concern for valve related infection, appreciate cardiology input and reassurance. Has been having green stools, has extensive GI evaluation upcoming. Will consult GI with concerns for malabsorption or autoimmune etiologies with ongoing inflammatory process, albeit malabsorption labs not strongly suggestive of malabsorption. F/u blood cultures. Check GISSEL workup. Check CK, am cortisol, LDH to complete metabolic workup. PT/OT ordered given weakness -other considerations include chronic fatigue syndrome, depression which will be considered when metabolic workup complete I have seen and discussed the case with the collaborating advanced practitioner. I agree with the above H&P. I have reviewed and confirmed the patients medical history, the findings on physical examination, and the patients diagnosis and treatment plan with Glory PALMER and agree with the information documented. I spent a total of 40 minutes coordinating, documenting, and providing care for this patient excluding time spent in the performance of separately billed services. All of the aforementioned completed outside of collaborating with the assigned advanced practitioner for a full treatment plan. I have reviewed the advanced practitioner's documentation, and I agree with, and take responsibility for the plan of care Subjective Patient seen and examined in room E212-1. Endorses ongoing fatigue and weakness. Denies any chest pain or SOB. Had TTE done earlier this morning. Feels ambulatory dizziness has improved. Tolerated breakfast this morning without issue. Review of Systems 2 Review of Systems: At least ten systems reviewed and negative, except as noted in the subjective section. Physical Exam 2 Physical Exam: General: WD/WN, NAD, sitting up in bed. A&Ox4, flat affect but pleasant. Conversing appropriately. HEENT: Normocephalic, atraumatic. External ear and nose normal, oropharynx normal. Respiratory: Normal respiratory effort, lungs clear to auscultation bilaterally. No accessory muscle use. Cardiovascular: Regular rate and rhythm, normal peripheral pulses, no BLE edema. Abdomen/GI: Normal bowel sounds, soft, nontender to palpation in all quadrants. Extremities/MSK: No cyanosis or clubbing, extremities motor strength intact, moves all extremities. Neurologic: No overt focal deficits, CN's II-XI not formally tested but appear grossly intact bilaterally. Skin: R lateral chest wall incision, as pictured below, from MV repair - nontender, mild surrounding erythema, overlying scab. No active drainage. Results & Data Results & Data Vital Signs (Past 12 Hours) Vital Signs Temp Pulse Pulse Resp BP Pulse Ox Pulse Ox 08/15/24 02:57 36.5 C 75 16 144/76 H 98 08/14/24 23:25 77 08/14/24 23:08 36.7 C 72 18 144/98 H 98 08/14/24 20:39 80 08/14/24 20:15 08/14/24 20:05 36.5 C 82 18 160/109 H 98 08/14/24 20:05 98 08/14/24 20:00 36.5 C 82 18 160/109 H 98 O2 Del Method O2 Del Method 08/15/24 02:57 Room Air 08/14/24 23:25 08/14/24 23:08 Room Air 08/14/24 20:39 08/14/24 20:15 Room Air 08/14/24 20:05 Room Air 08/14/24 20:05 Room Air 08/14/24 20:00 Room Air Laboratory Results Short CBC 08/14/24 08/15/24 Range/Units 10:02 06:39 WBC 11.30 H 8.63 (4.8-10.8) K/ul Hgb 12.3 L 11.7 L (14.0-18.0) g/dl Hct 38.4 L 35.3 L (42.0-52.0) % Plt Count 224 212 (130-400) K/uL BMP 08/14/24 08/15/24 10:02 06:39 Sodium 135 L 138 Potassium 4.7 4.4 Chloride 102 104 Carbon Dioxide 27 27 BUN 18 16 Creatinine 1.41 H 1.34 Glucose 101 H 89 Calcium 9.3 8.9 Liver Function 08/14/24 Range/Units 10:02 Total Bilirubin 1.1 H (0.2-1.0) mg/dl AST 17 (13-39) U/L ALT 11 (7-52) U/L Alkaline Phosphatase 76 (34-104) U/L Albumin 4.0 (3.4-5.0) gm/dl Urine 08/14/24 Range/Units 11:20 Urine Color Yellow Urine Appearance Clear (Clear) Urine pH 6.5 (4.5-7.5) Ur Specific [place] 1.023 (1.000-1.030) Urine Protein 1+ H (Negative) Urine Glucose (UA) Negative (Negative) (1) Fatigue Fatigue type: unspecified Qualified Code(s): R53.83 - Other fatigue
--- NOTE | 2024-08-15 08:01 | Cardiology Consultation ---
Date of Consultation August 15, 2024 Assessment & Plan (1) History of mitral valve repair: (2) Fatigue: (3) HTN (hypertension): (4) Abnormal stool color: Plan Patient is a 74-year-old male with recent mitral valve player in June [address] [facility], admitted with concerns regarding profound fatigue/weakness, And concerns for diarrhea with discolored stool. He was started on empiric antibiotics due to possible infiltrate on right lower lung vs small pleural effusion and area of scabbing on his right lateral chest incision. No evidence of acute infectious process per review of imaging and incision area. Blood cultures drawn this morning given recent cardiac surgery (drawn after antibiotics were initiated) Echo demonstrating normal LVEF with normal functioning mitral valve s/p repair. Continue metoprolol and ASA. He has no symptoms of SOB/orthopnea/cough. No indication of IV lasix for small pleural effusion. Diarrhea/Green stools -stool studies pending -C.Diff negative -patient was to have egd/colonoscopy in August -weight loss also noted -consider GI evaluation. At this time, his symptoms are likely non cardiac and not related to recent MVR in June 2024. He reports his symptoms of fatigue/weakness have been present for many years. He was hoping it would improve post mitral valve surgery. However over the last few days, his symptoms worsened with GI complaints. Case discussed with Dr. Person I spent a total of 60 minutes on the date of service in preparation, delivery, and documentation of the care provided to this patient, excluding any time spent in the performance of separately billed services. Alexandrea Bernal PA-C Department of Cardiology, [facility] This chart was completed in part utilizing Speech Voice Recognition Software. Grammatical errors, random word insertions, pronoun errors, and incomplete sentences are an occasional consequence of this system due to software limitations, ambient noise, and hardware issues. Any formal questions or concerns about the content, text, or information contained within the body of this dictation should be directly addressed to the provider for clarification. Supervising Physician Co-Signing Physician Notes Attending attestation: Case reviewed with the advanced practitioner. I have personally performed a history and physical examination on the patient. I have reviewed the advanced practitioner's documentation on the date of service referenced in note, and I agree with, and take responsibility for the plan of care. Subjective: Patient with generalized fatigue, concerning for change in color of his bowel movements. Denies mayra fever, chills. Exam: Cardiovascular regular rhythm, no murmurs Chest/skin exam: Small postoperative incisions clean dry and intact, healing as expected postsurgery, without unexpected drainage or erythema. Data: Images of transthoracic echocardiogram performed at [facility] on 08/11/2024 as well as those performed today reviewed. Low normal LVEF, appearance typical of mitral valve repair without mitral stenosis or regurgitation. Mild aortic valve regurgitation noted. Erythrocyte sedimentation rate mildly elevated 56 mm/h and C-reactive protein mildly elevated 1.74 mg/dL, this must be interpreted with taking into account that he is just over a month removed from a surgery. Impression-as noted above Plan: Agree with obtaining blood cultures (had already received a dose of Rocephin the evening of 08/14/2024), and broad-spectrum antibiotics. Stool studies negative. With regards to the small right pleural effusion. The patient was only on furosemide for a week after his initial surgery. He does not have any symptoms to suggest pneumonia without cough or shortness of breath. Future considerations include course of diuretics, but given concerns of infectious issues, I do not think now is the time to start them. The pleural effusion is actually minimal on chest x-ray, better appreciated on CT, but I do not think it warrants thoracentesis at present. I spent a total of 20 minutes coordinating, documenting, and providing care for this patient excluding time spent in the performance of separately billed services or time spent by another provider. Torres Person, History of Present Illness Reason for Consultation: Weakness, fatigue; S/P mitral valve repair at [facility]: Dr. Person History of Present Illness Patient is a 74 year old male who presented to [facility] with multitude of complaints including weakness, fatigue, lack of stamina, weight loss of 10 lbs over the last month and recent diarrhea with "[place] green" stools History includes: 1. Minimally invasive robotic assisted mitral valve repair in July 07, [address] [facility] due to severe MR 2. Normal coronary arteries per cath in May 2024 3. HTN Patient underwent recent heart surgery to repair severe mitral regurgitation with mitral valve repair in June [address] [facility]. He tolerated procedure without incident or significant complications. A week after surgery patient had rhinovirus Which improved with conservative therapies. He had recent echocardiogram at [facility] on 08/11 Which demonstrated preserved LV systolic function with no significant mitral stenosis or mitral regurgitation. Upon admission, EKG demonstrated normal sinus rhythm with atrial bigeminy with nonspecific ST-T wave abnormality. No significant change from prior EKG. High-sensitivity troponin negative WBC was minimally elevated on arrival 11.3 but improved today at 8.6 Small right pleural effusion noted on chest CT and concern for possible infiltrate so patient was started on empiric antibiotics. Unfortunately blood cultures were not drawn Prior to initiation of blood cultures. Stool was negative for C. difficile. Respiratory panel was negative as well as Lyme testing/Other tickborne illnesses was unremarkable. Patient denies recent fevers. ESR was elevated at 56 Patient reports significant/profound fatigue for many years, however symptoms recently progressed over the last several weeks.He reports fatigue with minimal exertion. He denies chest pain or usual shortness of breath. No orthopnea, PND, lower extremity edema. No fever, cough, chills. He is concerned with intermittent diarrhea and "limegreen" stools.Reports weight loss of approximately 10 pounds since his surgery. He denies palpitations or tachypalpitations. At time of consult, patient resting in bed in no acute distress. Profoundly fatigued with intermittent diarrhea and once again had "[place] green stools this morning". He denies acute cardiovascular complaints including chest pain, shortness of breath, fever or chills, palpitations, orthopnea, cough. Allergies Allergy/AdvReac Type Severity Reaction Status Date / Time No Known Allergies Allergy Verified 07/28/24 16:50 Home Medications Medication Instructions Recorded Confirmed Type omeprazole 20 mg capsule,delayed 40 mg PO QAM 03/20/24 08/14/24 History release aspirin 81 mg tablet,delayed 81 mg PO DAILY 07/28/24 08/14/24 History release metoprolol succinate 25 mg 25 mg PO DAILY 07/28/24 08/14/24 History tablet,extended release 24 hr lorazepam 0.5 mg tablet 0.5 mg PO TID PRN Anxiety 08/14/24 08/14/24 History sertraline 25 mg tablet 25 mg PO DAILY 08/14/24 08/14/24 History Patient History Medical History Acute kidney injury superimposed on chronic kidney disease Enterocolitis Intractable nausea and vomiting GERD (gastroesophageal reflux disease) IBS (irritable bowel syndrome) Rupture of right Achilles tendon Social History Smoking Status: Never smoker Hx Alcohol Use: No Hx Substance Use: No Preferred Language: [place] Communication Ability: Effective Manager Pacu Required: No Beliefs That Will Affect Care: None Current Living Situation: Spouse Feels Safe at Home: Yes Safety Concerns: Feels Safe At This Time Assistive Devices: Glasses and Hearing Aid - Bilateral Review of Systems Review of Systems: All systems reviewed & are unremarkable except as noted in HPI & below Physical Exam Constitutional: WD/WN, vitals as above average body habitus; no acute distress Neck: normal visual inspection Respiratory: normal respiratory effort; no cough and not tachypneic Auscultation: no crackles, no rales and no rhonchi Cardiovascular: Rate/Rhythm: regular rate and regular rhythm Heart Sounds: no murmur Vessels: no JVD Extremities: no edema Chest (Breasts): Additional Comments: right lateral thoracotomy scars healing without erythema or drainage Gastrointestinal (Abdomen): normal bowel sounds, soft, nontender, no hepatosplenomegaly Neurologic: PERRL, EOMI, accommodation nl, no face palsy, no dysarthria Results & Data Vital Signs (Past 12 Hours) Vital Signs Temp Pulse Pulse Resp BP Pulse Ox Pulse Ox 08/15/24 02:57 36.5 C 75 16 144/76 H 98 08/14/24 23:25 77 08/14/24 23:08 36.7 C 72 18 144/98 H 98 08/14/24 20:39 80 08/14/24 20:15 08/14/24 20:05 36.5 C 82 18 160/109 H 98 08/14/24 20:05 98 08/14/24 20:00 36.5 C 82 18 160/109 H 98 O2 Del Method O2 Del Method 08/15/24 02:57 Room Air 08/14/24 23:25 08/14/24 23:08 Room Air 08/14/24 20:39 08/14/24 20:15 Room Air 08/14/24 20:05 Room Air 08/14/24 20:05 Room Air 08/14/24 20:00 Room Air Laboratory Results Cardiac Enzymes 08/14/24 Range/Units 10:02 AST 17 (13-39) U/L Troponin I High Sens 8.8 (0-20) pg/ml Coagulation 08/14/24 08/14/24 Range/Units 10:02 11:21 PT Cancelled 11.7 CBC 08/14/24 08/15/24 Range/Units 10:02 06:39 WBC 11.30 H 8.63 (4.8-10.8) K/ul RBC 4.48 L 4.14 L (4.70-6.10) M/uL Hgb 12.3 L 11.7 L (14.0-18.0) g/dl Hct 38.4 L 35.3 L (42.0-52.0) % Plt Count 224 212 (130-400) K/uL Neut # (Auto) 7.71 H (1.40-6.50) K/uL Lymph # (Auto) 1.73 (1.20-3.40) K/uL [place] # (Auto) 1.08 H (0.11-0.59) K/uL Eos # (Auto) 0.69 H (0.00-0.50) K/uL Baso # (Auto) 0.06 (0.00-0.20) K/uL Comprehensive Metabolic Panel 08/14/24 08/15/24 Range/Units 10:02 06:39 Sodium 135 L 138 (136-145) mmol/L Potassium 4.7 4.4 (3.5-5.1) mmol/L Chloride 102 104 (98-107) mmol/L Carbon Dioxide 27 27 (21-32) mmol/L BUN 18 16 (6-23) mg/dl Creatinine 1.41 H 1.34 (0.6-1.4) mg/dl Glucose 101 H 89 (70-99(Fasting)) mg/dl Calcium 9.3 8.9 (8.6-10.3) mg/dl AST 17 (13-39) U/L ALT 11 (7-52) U/L Alkaline Phosphatase 76 (34-104) U/L Total Protein 7.5 (6.0-8.3) gm/dl Albumin 4.0 (3.4-5.0) gm/dl Intake and Output 0608/15/24 08/15/24 22:59 06:59 14:59 Intake Total 1050 / 1150 100 / 1150 Balance 1050 / 1150 100 / 1150 Intake: IV 1050 / 1150 100 / 1150 Doxycycline Hyclate 100 mg In 100 / 100 Dextrose 5% Mini-B 100 ml @ 50 mls/hr IV NOW STA Rx#:[id number] Sodium Chloride 0.9% 1,000 ml @ 1000 / 1000 999 mls/hr IV .Q1H1M ONE Rx#: [id number] [id number] SODIUM 2,000 mg In 50 / 50 50 ml @ 100 mls/hr IV NOW STA Rx#:[id number] Other: # Unmeasured Voids 1 1 Weight 83.6 kg 83.6 kg Weight Measurement Method Built in Bedscale Built in [facility] Diagnostic Findings Telemetry reviewed: Normal sinus rhythm with heart rates ranging in the 80s to 100s. Occasional PACs and PVCs. EKG reviewed Dated 08/14/2024: Normal sinus rhythm with atrial bigeminy Nonspecific ST-T wave abnormality and inferolateral leads. Compared with prior EKGs, no significant changes noted. Echocardiogram completed 08/15/2024: Mild concentric LVH LVEF 50 to 54% Mild aortic regurgitation Evidence of mitral valve repair present without significant mitral regurgitation or mitral stenosis. Mild aortic root dilatation at 3.8 cm. Chest X-Ray 08/14/24 09:53 IMPRESSION: Likely small right pleural effusion and mild associated right lung base consolidation. Abdomen/Pelvis CT 08/14/24 17:44 IMPRESSION: 1. No evidence of acute intra-abdominal pathology. 2. Bilateral renal simple cortical cysts ([place] 1) Chest CT 08/14/24 17:44 IMPRESSION: Mild right pleural effusion. Echo report reviewed from [facility] on 08/11/24: Interpretation Summary The qualitative LV ejection fraction is 50-54% (normal). The right ventricular cavity is mildly dilated. The right ventricular systolic function is normal. Mild aortic valve regurgitation is present. There is evidence of mitral valve repair present. Mitral stenosis is absent. Mild tricuspid regurgitation is present. The proximal ascending thoracic aorta is mildly enlarged. Cardiac cath report from [facility] May 2024 Impression and Plan Patient has: Angiographically normal coronary arteries, Normal left ventriculogram, Normal right heart catherization. Medications Administered Current Inpatient Medications Acetaminophen (Acetaminophen 325 Mg Tab) 650 mg PO Q4H PRN PRN Reason: Pain or Fever Stop: 09/13/24 20:04 Al Hydrox/Mg Hydrox/Simethicone (Aluminum/Magnesium Susp 30 Ml Udc) 15 ml PO Q4H PRN PRN Reason: Dyspepsia Stop: 09/13/24 20:04 Aspirin (Aspirin 81 Mg Ectab) 81 mg PO DAILY [facility] Stop: 09/14/24 08:59 Last Admin: 08/15/24 08:46 Dose: 81 mg Enoxaparin Sodium (Enoxaparin Inj 40 Mg/0.4 Ml Syr) 40 mg SQ QAM [facility] Stop: 09/14/24 08:59 Last Admin: 08/15/24 09:28 Dose: Not Given Piperacillin Sod/Tazobactam Sod (Zosyn) 4.5 gm in 100 mls @ 25 mls/hr IV Q8H [facility]; Protocol Stop: 09/26/24 13:59 Vancomycin HCl 1,750 mg/ (Sodium Chloride) 535 mls @ 200 mls/hr IV 0900 ONE Stop: 08/15/24 11:40 Last Admin: 08/15/24 10:09 Dose: 200 mls/hr Lorazepam (Lorazepam 0.5 Mg Tab) 0.5 mg PO TID PRN PRN Reason: Anxiety Stop: 09/13/24 18:39 Last Admin: 08/15/24 08:42 Dose: 0.5 mg Metoprolol Succinate (Metoprolol Succ 25mg Ext Rel Tab) 25 mg PO DAILY [facility] Stop: 09/14/24 08:59 Last Admin: 08/15/24 08:46 Dose: 25 mg Miscellaneous Information (Vancomycin Consult Active) 1 each N/A UD PRN PRN Reason: Consult Stop: 09/14/24 07:42 Ondansetron HCl (Ondansetron Inj 2 Mg/Ml 2 Ml Vial) 4 mg IV Q6H PRN PRN Reason: Nausea Stop: 09/13/24 20:04 Pantoprazole Sodium (Pantoprazole 40 Mg Tab) 40 mg PO QAM [facility] Stop: 09/14/24 08:59 Last Admin: 08/15/24 08:46 Dose: 40 mg Polyethylene Glycol (Polyethylene (Miralax) 17 Gm Pack) 17 gm PO DAILY PRN PRN Reason: Constipation Stop: 09/13/24 20:04 Saccharomyces Boulardii (Saccharomyces Boulardii 250 Mg Cap) 250 mg PO DAILY [facility] Stop: 09/14/24 08:59 Last Admin: 08/15/24 08:45 Dose: 250 mg Sertraline HCl (Sertraline Hcl 50 Mg Tablet) 25 mg PO DAILY [facility] Stop: 09/14/24 08:59 Last Admin: 08/15/24 08:46 Dose: 25 mg (2) Fatigue Fatigue type: unspecified Qualified Code(s): R53.83 - Other fatigue
[2024-08-15] MEDS: LORazepam 0.5 MG TAB PO PRN (08:42)
[2024-08-15] MEDS: PIPERACILLIN/TAZOBACTAM 4.5 GM/100 ML BAG IV ONE (08:44)
[2024-08-15] MEDS: SACCHAROMYCES BOULARDII 250 MG CAP PO SCH (08:45)
[2024-08-15] MEDS: METOPROLOL SUCC 25MG EXT REL TAB PO SCH (08:46)
[2024-08-15] MEDS: ASPIRIN 81 MG ECTAB PO SCH (08:46)
[2024-08-15] MEDS: SERTRALINE HCL 50 MG TABLET PO SCH (08:46)
[2024-08-15] MEDS: ENOXAPARIN INJ 40 MG/0.4 ML SYR SQ SCH (08:46)
[2024-08-15] MEDS: PANTOprazole 40 MG TAB PO SCH (08:46)
[2024-08-15 08:47] LABS: C. diff 027-NAP1-BI NEGATIVE; Cdiff Toxin B Gene (2yr or >) Negative Cdiff Gene (Neg)
[2024-08-15] MEDS ORDERED: DOXYCYCLINE HYCLATE 100 MG in DEXTROSE 5% MINI-B 100 ML IV SCH (09:00)
[2024-08-15] MEDS: VANCOMYCIN HCL 1,750 MG in SODIUM CHLORIDE 0.9% 500 ML IV ONE (10:09)
[2024-08-15 13:19] LABS: Creatine Kinase 48 U/L (30-223); Lactate Dehydrogenase 211 U/L (86-244)
--- NOTE | 2024-08-15 15:11 | Pharmacy Report ---
Pharmacy PK ABX Note - Date of Service August 15, 2024 - Assessment and Plan Assessment 74 year old M receiving Vancomycin for treatment of endocarditis. Blood cultures pending. Day #1 of antimicrobial therapy. Plan Vancomycin * Loading dose: 1750 mg IV x 1 * Maintenance dose: 1500 mg IV every 24 hours * Regimen is predicted to achieve target AUC/NATE of 400-600 mg/L.hr * Random level ordered for: 08/17/24 with AM labs Pharmacy will continue to follow and will adjust dose/frequency as necessary. Thank you. Pharmacy has transitioned to AUC monitoring for vancomycin. AUC/NATE is the preferred PK/PD target and is associated with decreased risk of nephrotoxicity compared to traditional trough targets.
[2024-08-15] MEDS: PIPERACILLIN/TAZOBACTAM 4.5 GM/100 ML BAG IV SCH (15:27)
[2024-08-15] MEDS ORDERED: cefTRIAXone SODIUM 2,000 MG/50 ML BAG IV SCH (18:00)
[2024-08-15] MEDS: VANCOMYCIN HCL 1,500 MG in SODIUM CHLORIDE 0.9% 500 ML IV SCH (20:35)
[2024-08-15] MEDS: ACETAMINOPHEN 325 MG TAB PO PRN (20:37)
[2024-08-16 07:29] LABS: Hemoglobin 11.5 g/dl (14.0-18.0); Mean Corpuscular Hemoglobin 27.6 pg (25.0-34.0); Mean Corpuscular Hgb Conc 31.9 g/dL (32.0-36.0); Mean Corpuscular Volume 86.3 fL (80.0-100.0); Mean Platelet Volume 9.7 fL (9.4-12.4); Platelet Count 214 K/uL (130-400); RDW Coefficient of Variation 12.3 % (11.5-14.5); Red Blood Count 4.17 M/uL (4.70-6.10); White Blood Count 8.83 K/ul (4.8-10.8)
[2024-08-16 07:52] LABS: BUN Creatinine Ratio 9.4 (10-20); Calcium 8.8 mg/dl (8.6-10.3); Creatinine Clr Calc Pharmacy 55.4 ml/min; Magnesium 1.8 mg/dl (1.7-2.4); Potassium 4.2 mmol/L (3.5-5.1)
[2024-08-16] MEDS: CHOLECALCIFEROL 10 MCG (400 UNITS) TAB PO SCH (09:20)
--- NOTE | 2024-08-16 10:26 | Gastrointestinal Consultation ---
Date of Consultation August 16, 2024 Assessment & Plan (1) Abnormal stool color: 74 year old man with isolated passage of green stool. I only concern myself with red, black or white stools. Other colors are dictated by oral intake in combination with bile. He doesn't recall eating anything that could contribute to this color change but he has no other symptoms and his CT is normal. I would just keep his appt for his EGD and his colonoscopy scheduled August 27. History of Present Illness Reason for Consultation: green stool Attending Physician: Christ Roy MD History of Present Illness 74 year old man admitted to the hospital with fatigue and exhaustion. He noted a loose bowel movement that was "green". I am consulted for this. He has only had this on one occasion. He had a normal colored stool today that had "a little green" in it. He has no abdominal pain. He does not remember eating anything green. He keeps up with his colonoscopies and is scheduled to have an EGD and a colonoscopy on August 31. he has recently had a MVR and evaluation of the valve has not revealed a problem to cause his fatigue. Allergies Allergy/AdvReac Type Severity Reaction Status Date / Time No Known Allergies Allergy Verified 07/28/24 16:50 Home Medications Medication Instructions Recorded Confirmed Type omeprazole 20 mg capsule,delayed 40 mg PO QAM 03/20/24 08/14/24 History release aspirin 81 mg tablet,delayed 81 mg PO DAILY 07/28/24 08/14/24 History release metoprolol succinate 25 mg 25 mg PO DAILY 07/28/24 08/14/24 History tablet,extended release 24 hr lorazepam 0.5 mg tablet 0.5 mg PO TID PRN Anxiety 08/14/24 08/14/24 History sertraline 25 mg tablet 25 mg PO DAILY 08/14/24 08/14/24 History Patient History Medical History Acute kidney injury superimposed on chronic kidney disease Enterocolitis Intractable nausea and vomiting GERD (gastroesophageal reflux disease) IBS (irritable bowel syndrome) Rupture of right Achilles tendon Social History Smoking Status: Never smoker Hx Alcohol Use: No Hx Substance Use: No Preferred Language: Zambian Communication Ability: Effective Electrical Systems Designer Required: No Beliefs That Will Affect Care: None Current Living Situation: Spouse Feels Safe at Home: Yes Safety Concerns: Feels Safe At This Time Assistive Devices: Glasses and Hearing Aid - Bilateral Physical Exam Physical Exam: Pleasant man in no distress Constitutional: WD/WN, vitals as above Respiratory: normal respiratory effort, lungs clear to auscultation Cardiovascular: RRR, no murmur, no edema Gastrointestinal (Abdomen): normal bowel sounds, soft, nontender, no hepatosplenomegaly Results & Data Vital Signs (Past 12 Hours) Vital Signs Temp Pulse Pulse Resp BP BP Pulse Ox 08/16/24 07:40 36.6 C 66 18 135/89 93 08/16/24 03:34 36.4 C L 75 16 139/88 92 08/15/24 23:26 36.4 C L 74 18 121/75 98 08/15/24 23:26 69 O2 Del Method 08/16/24 07:40 Room Air 08/16/24 03:34 Room Air 08/15/24 23:26 Room Air 08/15/24 23:26 Laboratory Results 08/16/24 08/15/24 08/15/24 Range/Units 06:53 12:57 08:16 WBC 8.83 (4.8-10.8) K/ul RBC 4.17 L (4.70-6.10) M/uL Hgb 11.5 L (14.0-18.0) g/dl Hct 36.0 L (42.0-52.0) % MCV 86.3 (80.0-100.0) fL MCH 27.6 (25.0-34.0) pg MCHC 31.9 L (32.0-36.0) g/dL RDW Std Deviation 39.0 (36.4-46.3) fL RDW Coeff of Mindy 12.3 (11.5-14.5) % Plt Count 214 (130-400) K/uL MPV 9.7 (9.4-12.4) fL Sodium 139 (136-145) mmol/L Potassium 4.2 (3.5-5.1) mmol/L Chloride 107 (98-107) mmol/L Carbon Dioxide 26 (21-32) mmol/L Anion Gap 6 (3-11) BUN 13 (6-23) mg/dl Creatinine 1.38 (0.6-1.4) mg/dl Est Cr Clr Drug Dosing 55.4 ml/min eGFR 53.66 BUN/Creatinine Ratio 9.4 L (10-20) Glucose 96 (70-99(Fasting)) mg/dl Calcium 8.8 (8.6-10.3) mg/dl Magnesium 1.8 (1.7-2.4) mg/dl Lactate Dehydrogenase (86-244) U/L Total Creatine Kinase (30-223) U/L 25-OH Vitamin D Total 24.2 L (30-100) ng/ml Folate (>5.38) ng/ml Cortisol AM Sample 18.58 (6.2-22.6) mcg/dl GISSEL Screen Pending 08/15/24 Range/Units 08:02 WBC (4.8-10.8) K/ul RBC (4.70-6.10) M/uL Hgb (14.0-18.0) g/dl Hct (42.0-52.0) % MCV (80.0-100.0) fL MCH (25.0-34.0) pg MCHC (32.0-36.0) g/dL RDW Std Deviation (36.4-46.3) fL RDW Coeff of Mindy (11.5-14.5) % Plt Count (130-400) K/uL MPV (9.4-12.4) fL Sodium (136-145) mmol/L Potassium (3.5-5.1) mmol/L Chloride (98-107) mmol/L Carbon Dioxide (21-32) mmol/L Anion Gap (3-11) BUN (6-23) mg/dl Creatinine (0.6-1.4) mg/dl Est Cr Clr Drug Dosing ml/min eGFR BUN/Creatinine Ratio (10-20) Glucose (70-99(Fasting)) mg/dl Calcium (8.6-10.3) mg/dl Magnesium (1.7-2.4) mg/dl Lactate Dehydrogenase 211 (86-244) U/L Total Creatine Kinase 48 (30-223) U/L 25-OH Vitamin D Total (30-100) ng/ml Folate 18.45 (>5.38) ng/ml Cortisol AM Sample (6.2-22.6) mcg/dl GISSEL Screen Diagnostic Findings Chest X-Ray 08/14/24 09:53 XR chest 1V portable CLINICAL HISTORY: weakness COMPARISON STUDY: 07/28/2024 FINDINGS: Stable mitral valve repair. Stable mild cardiomegaly without pulmonary vascular congestion. There is interval mild hazy opacity at the right base with mild blunting of the right costophrenic angle. No pneumothorax. IMPRESSION: Likely small right pleural effusion and mild associated right lung base consolidation. ACT 112: Negative or not required by law. Electronically signed by: Jaya Silva M.D. 08/14/2024 10:51 AM Abdomen/Pelvis CT 08/14/24 17:44 EXAM: CT abd pelvis wo con CLINICAL HISTORY: stool changes TECHNIQUE: Non-contrast CT of the abdomen and pelvis was performed, with the following protocol: axial images, and reconstructed coronal and sagittal images. One of the following dose reduction techniques was utilized for this exam: Automated exposure control, adjustment of the mA and/or kV according to patient size, and use of iterative reconstruction. COMPARISON: No prior studies available for comparison. FINDINGS: Abdomen: Liver: Normal in size, shape, and density. No focal lesions, cysts, or masses were identified. Gallbladder and Biliary System: No wall thickening, pericholecystic fluid, or dense gallstones were identified. Pancreas: Pancreatic head, body, and tail are visualized and appear normal in size and density. No pancreatic masses or calcifications were noted. Spleen: Normal in size, shape, and density. No splenic lesions or masses were identified. Appendix: The appendix is normal in size without andriy appendiceal fat stranding, and without an appendicolith. No evidence of appendiceal abscess or perforation. Kidneys and Adrenal Glands: Both kidneys are normal in size, shape, and position. Cortical thickness is within normal limits. No renal calculi or hydronephrosis. Bilateral simple renal cortical cysts , the largest is in the left side, measuring 46x44 mm Adrenal glands are unremarkable. Abdominal Aorta and Vessels: The abdominal aorta and major branches are patent without evidence of an aneurysm or significant atherosclerosis. Pelvis: Urinary Bladder: Normal in contour and wall thickness. No intraluminal lesions. Prostate: Normal in size and contour. No masses or abnormal thickening. Seminal Vesicles: Normal appearance without abnormal enlargement or mass. Peritoneal and Retroperitoneal Structures: No free fluid or abnormal fluid collections were identified within the abdomen or pelvis. No lymphadenopathy was noted. Bowel: The visualized bowel loops are normal in caliber and appearance. No evidence of bowel obstruction or wall thickening. Bones and Soft Tissues: Degenerative changes of the scanned spine with mild right-sided scoliosis Right inguinal area of subcutenous tissue thickening with surgical clips ,likly postoperative scarring chest cuts : discussed in CT chest. IMPRESSION: 1. No evidence of acute intra-abdominal pathology. 2. Bilateral renal simple cortical cysts ([place] 1) Electronically signed by Vahid Taveras 08-14-2024 8:[address] 08/14/24 17:44 EXAM: CT chest diagnostic wo con CLINICAL HISTORY: Pleural effusion/consolidation. TECHNIQUE: Contiguous axial CT images of the chest were acquired without administration of intravenous contrast. Coronal and sagittal reconstructions were obtained. One of the following dose reduction techniques were utilized for this exam: Automated exposure control, adjustment of the mA and/or kV according to patient size, use of iterative reconstruction. COMPARISON: None. FINDINGS: Lungs: The lung parenchyma is clear with no evidence of consolidation, collapse, or focal lesions. No pulmonary nodules or masses are identified. No evidence of interstitial lung disease or emphysema. Multiple fibroatelectatic bands are seen involving the middle lobe as well as left lower lung lobe. Mild right pleural effusion is noted with underlying partial lung consolidation/collapse. Mediastinum: The mediastinum is normal in size and contour. No mediastinal mass or abnormal lymphadenopathy. The heart size is within normal limits. The ascending aorta is mild dilated measuring 4 cm for follow up. Hilar Structures: The hilar structures appear normal without enlargement or abnormality. No atheromatous calcifications of the aorta or coronary arteries. Trachea and Main Bronchi: The trachea and main bronchi are patent without evidence of obstruction or abnormality. Chest Wall: The chest wall is unremarkable with no evidence of soft tissue or bony abnormalities. Spondylodegenerative changes of the thoracic spine are noted. Upper Abdomen: Visualized portions of the liver, spleen, adrenal glands, and left kidney are unremarkable. Few right renal cortical cysts are noted. Bones: Visualized osseous structures are normal, no evidence of fracture or lytic/sclerotic lesions. IMPRESSION: Mild right pleural effusion. Electronically signed by Vahid Taveras 08-14-2024 8:00 PM
--- NOTE | 2024-08-16 11:37 | Hospitalist Progress Note ---
Date of Service August 16, 2024 Assessment & Plan (1) Fatigue: (2) Generalized weakness: (3) History of mitral valve repair: (4) Pleural effusion, right: (5) Abnormal stool color: Plan Patient is a 74-year-old male with past medical history significant for enlarged LA, symptomatic PVCs, HTN, IBS, GERD, CKD stage IIIa [baseline Cr 1.2-1.4] and other problems listed below who presented to the ED for evaluation on 08/14/24 due to worsening fatigue and weakness over the past 2 weeks. Fatigue with significant degree of impact on ADLs. Also has been experiencing ambulatory dizziness. Of note, patient recently underwent mitral valve repair at [facility] on 07/07/24 due to history of severe nonrheumatic MVR. Postoperative course c/b development of R-sided pleural effusion which required chest tube placement. He is scheduled to follow-up at [facility] on 08/20/24. TTE, 08/11/24: LVEF = 50-54%, mildly dilated RV, mild AVR, mild TR, mild enlarged proximal ascending thoracic aorta. #Generalized weakness, profound fatigue #Ambulatory dizziness --> improved #Recent robotic entry MVR on 07/07/24 @ [facility] 2/2 severe nonrheumatic MVR Unintentional 10lb weight loss over past month Lyme screen negative Procal negative; recently had Rhinovirus Resp BioFire negative UA negative, TSH WNL ESR 56 (H), CRP 1.74 (H) --> ? related to recent MV repair Minimal erythema noted around MV repair R lateral insertion site, no active drainage --> does not appear acutely infected Initially started on Rocephin/doxy - stopped Transitioned to vanc/Zosyn on 08/15 given h/o recent MV repair Cards consulted Prelim blood cxs negative as of today --> ABX subsequently stopped Telemetry benign Anemia w/u unremarkable, H/H remains stable Obtain PT/OT evals --> inquiring about outpt PT services Continue ASA ? if depression contributing to symptoms --> Pt admits to feelings of depression Recently started on Zoloft about 1wk ago by PCP Discussed w/ pt about starting duloxetine --> would like to try, will start 30mg HS to begin AM cortisol 18.58, LDH WNL, CK WNL GISSEL pending as part of autoimmune w/u #Mild R pleural effusion noted on chest CT w/o evidence of hypoxia No resp complaints Continue to monitor #Abnormal stool --> tejon green stools x 3 isolated events #History of small bowel bacterial overgrowth C-scope 11/2019: one 5mm polyp 50cm proximal to the anus (removed w/ cold snare), otherwise unremarkable Stool PCR negative Recently completed Augmentin course on 08/02 for tx of SIBO CTAP grossly unremarkable C. diff studies negative GI consulted --> recommending outpt f/u F/w [facility] Scheduled for EGD + [place] and colonscopy on 08/27/24 #CKD stage IIIa Baseline Cr 1.2-1.4 Renal fx remains stable Continue to monitor Avoid nephrotoxic agents as able #Incidental CTAP finding Bilateral renal simple cortical cysts noted on CTAP O/p monitoring advised #History of symptomatic PACs #HTN Continue Toprol-XL #GERD Continue PPI DVT Prophylaxis: SCDs/TEDs PCP: Demetrio Mills MD Disposition: Downgrade to med/surg, appreciate PT/OT evals; updated over the phone, wants pt to work w/ PT/OT before returning home Patient seen in collaboration with Dr. Roy. Please see addendum. I spent a total of 40 minutes coordinating, documenting, and providing care for this patient excluding time spent in the performance of separately billed services or time spent by another provider/QHP. This included personally reviewing all current laboratories and imaging studies, medical reconciliation, outpatient chart review and discussion with specialists. This chart was completed in part utilizing Speech Voice Recognition Software. Grammatical errors, random word insertions, pronoun errors, and incomplete sentences are an occasional consequence of this system due to software limitations, ambient noise, and hardware issues. Any formal questions or concerns about the content, text, or information contained within the body of this dictation should be directly addressed to the provider for clarification. Admission and Anticipated Discharge Date Admission Date: August 14, 2024 Supervising Physician Co-Signing Physician Notes Patient seen and examined at bedside. in room as well. Patient has had fatigue, weakness for about 1.5 years. No change since admission. On exam, no sarcopenia noted, 5/5 strength in all extremities, no clear murmur auscultated. Right chest wall with prior surgical wounds (healing adequately) and some scabbing noted without significant erythema. CT chest with small pleural effusion, echo with normal EF and no obvious vegetation. Elevated ESR/CRP suggestive of ongoing inflammatory etiology. No localizing weakness. TSH WNL, vitamin B12/folic acid WNL, Hgb relatively unremarkable (around baseline), iron workup unremarkable, AM cortisol WNL, CK WNL, LDH WNL. GI consulted, recommended outpatient follow up, cardiology consulted, feel not cardiac in nature. From a metabolic perspective, consideration for autoimmune/GI etiology given elevated ESR/CRP, will follow autoimmune panel. Has outpatient GI scopes scheduled, per GI green stool unconcerning. At this point, strongly suspect mild to moderate depression with concurrent central process such as chronic fatigue syndrome. Does meet criteria including over 6 months duration, significant fatigue, unrefreshing sleep, some post exertional malaise. -can consider adding duloxetine 30 mg at bedtime for depression, just started sertraline, can uptitrate outpatient -recommend PM&R consult outpatient and will f/u PT/OT recs here I have seen and discussed the case with the collaborating advanced practitioner. I agree with the above H&P. I have reviewed and confirmed the patients medical history, the findings on physical examination, and the patients diagnosis and treatment plan with Glory PALMER and agree with the information documented. I spent a total of 20 minutes coordinating, documenting, and providing care for this patient excluding time spent in the performance of separately billed services. All of the aforementioned completed outside of collaborating with the assigned advanced practitioner for a full treatment plan. I have reviewed the advanced practitioner's documentation, and I agree with, and take responsibility for the plan of care Subjective Patient seen and examined in room E212-1. Still with ongoing fatigue and weakness. Has not been out of bed much. Denies any chest pain or SOB. Mentions feeling depressed. Encouraged him to ambulate around the halls and to work with PT/OT. Had BM this morning which was "normal" in color; no further bouts of tejon green stool. Review of Systems Review of Systems: At least ten systems reviewed and negative, except as noted in the subjective section. Physical Exam Physical Exam: General: WD/WN, NAD, sitting up in bed. A&Ox4, flat affect but pleasant. Conversing appropriately. HEENT: Normocephalic, atraumatic. External ear and nose normal, oropharynx normal. Respiratory: Normal respiratory effort, lungs clear to auscultation bilaterally. No accessory muscle use. Cardiovascular: Regular rate and rhythm, normal peripheral pulses, no BLE edema. Abdomen/GI: Normal bowel sounds, soft, nontender to palpation in all quadrants. Extremities/MSK: No cyanosis or clubbing, extremities motor strength intact, moves all extremities. Neurologic: No overt focal deficits, CN's II-XI not formally tested but appear grossly intact bilaterally. Skin: R lateral chest wall incision from MV repair - nontender, minimal surroun ding erythema, overlying scab. No active drainage. Results & Data Results & Data Vital Signs (Past 12 Hours) Vital Signs Temp Pulse Pulse Resp BP BP Pulse Ox 08/16/24 10:26 36.6 C 71 18 128/80 95 08/16/24 07:40 36.6 C 66 18 135/89 93 08/16/24 03:34 36.4 C L 75 16 139/88 92 O2 Del Method 08/16/24 10:26 Room Air 08/16/24 07:40 Room Air 08/16/24 03:34 Room Air Laboratory Results Short CBC 08/16/24 Range/Units 06:53 WBC 8.83 (4.8-10.8) K/ul Hgb 11.5 L (14.0-18.0) g/dl Hct 36.0 L (42.0-52.0) % Plt Count 214 (130-400) K/uL BMP 08/16/24 06:53 Sodium 139 Potassium 4.2 Chloride 107 Carbon Dioxide 26 BUN 13 Creatinine 1.38 Glucose 96 Calcium 8.8 Cardiac Enzymes 08/15/24 Range/Units 08:02 Total Creatine Kinase 48 (30-223) U/L (1) Fatigue Fatigue type: unspecified Qualified Code(s): R53.83 - Other fatigue
--- NOTE | 2024-08-16 12:14 | Cardiology Progress Note ---
Date of Service August 16, 2024 Assessment & Plan (1) History of mitral valve repair: (2) Fatigue: (3) HTN (hypertension): (4) Abnormal stool color: Plan 08/15/24: Patient is a 74-year-old male with recent mitral valve player in June 2024 at [facility], admitted with concerns regarding profound fatigue/weakness, And concerns for diarrhea with discolored stool. He was started on empiric antibiotics due to possible infiltrate on right lower lung vs small pleural effusion and area of scabbing on his right lateral chest incision. No evidence of acute infectious process per review of imaging and incision area. Blood cultures drawn this morning given recent cardiac surgery (drawn after antibiotics were initiated) Echo demonstrating normal LVEF with normal functioning mitral valve s/p repair. Continue metoprolol and ASA. He has no symptoms of SOB/orthopnea/cough. No indication of IV lasix for small pleural effusion. Diarrhea/Green stools -stool studies pending -C.Diff negative -patient was to have egd/colonoscopy in August -weight loss also noted -consider GI evaluation. At this time, his symptoms are likely non cardiac and not related to recent MVR in June 2024. He reports his symptoms of fatigue/weakness have been present for many years. He was hoping it would improve post mitral valve surgery. However over the last few days, his symptoms worsened with GI complaints. 08/16/24: Patient ambulating in room this morning without acute issue. await GI evaluation. Ongoing green stool reported. He had one spell of "weakness" this morning but denies chest pain, SOB, dizziness, palpitations. No arrhythmias on monitor at this time. Nursing notified me around noon that patient had possible short run of non sustained Vt (wide complex tachycardia around 11:37). Will go back and review. No symptoms reported. Magnesium low this morning - 2 grams ordered now Continue metoprolol 25 mg daily. hesitant to increase dose due to ongoing complaints of fatigue. Echo yesterday was unremarkable. Recommend GI evaluation given change in bowel movements. Blood cultures are pending Continue antibiotics for now. No evidence of vegetation on valve. Case discussed with Dr. Person I spent a total of 30 minutes on the date of service in preparation, delivery, and documentation of the care provided to this patient, excluding any time spent in the performance of separately billed services. Alexandrea Bernal PA-C Department of Cardiology, [facility] This chart was completed in part utilizing Speech Voice Recognition Software. Grammatical errors, random word insertions, pronoun errors, and incomplete sentences are an occasional consequence of this system due to software limitations, ambient noise, and hardware issues. Any formal questions or concerns about the content, text, or information contained within the body of this dictation should be directly addressed to the provider for clarification. Admission and Anticipated Discharge Date Admission Date: August 14, 2024 Supervising Physician Co-Signing Physician Notes Attending attestation: Case reviewed with the advanced practitioner. I have personally performed a history and physical examination on the patient. I have reviewed the advanced practitioner's documentation on the date of service referenced in note, and I agree with, and take responsibility for the plan of care. Subjective: Patient notes energy levels minimally improved today. Exam: Cardiovascular: Regular rhythm, no murmurs Data: 6 beat run of wide-complex tachycardia (nonsustained ventricular tachycardia) observed 08/16/2024 at 11:48 AM. Otherwise sinus rhythm in the 60s. Impression/ Plan: Status post minimally invasive robotic assisted mitral valve repair -At present, cardiac workup reassuring. With 2 recent transthoracic echocardiograms, mild elevation in ESR, CRP, felt to be nonspecific. Clinical suspicion for SBE is low. Patient with history of angiographically normal coronary arteries, low normal LVEF. Supplement magnesium intravenously, for level of 1.8 this morning. Continue chronic metoprolol dose. Will keep patient on telemetry. I spent a total of 20 minutes coordinating, documenting, and providing care for this patient excluding time spent in the performance of separately billed services or time spent by another provider. Torres Person, Subjective Patient ambulating in room this morning without issue. Reports feeling "ok". Only felt "weak" for a little bit this morning but no associated cardiac symptoms. No SOB, CP, dizziness, palpitations. No orthopnea, PND. Had one additional BM this morning with green stools. Awaiting GI input Review of Systems Review of Systems: All systems reviewed & are unremarkable except as noted in HPI & below Physical Exam Constitutional: WD/WN, vitals as above average body habitus; no acute distress Neck: normal visual inspection Respiratory: normal respiratory effort; no cough and not tachypneic Auscultation: no crackles, no rales and no rhonchi Cardiovascular: Rate/Rhythm: regular rate and regular rhythm Heart Sounds: no murmur Vessels: no JVD Extremities: no edema Gastrointestinal (Abdomen): normal bowel sounds, soft, nontender, no hepatosplenomegaly Neurologic: PERRL, EOMI, accommodation nl, no face palsy, no dysarthria Results & Data Vital Signs (Past 12 Hours) Vital Signs Temp Pulse Pulse Resp BP BP Pulse Ox 08/16/24 10:26 36.6 C 71 18 128/80 95 08/16/24 07:40 36.6 C 66 18 135/89 93 08/16/24 03:34 36.4 C L 75 16 139/88 92 O2 Del Method 08/16/24 10:26 Room Air 08/16/24 07:40 Room Air 08/16/24 03:34 Room Air Laboratory Results Cardiac Enzymes 08/15/24 Range/Units 08:02 Lactate Dehydrogenase 211 (86-244) U/L CBC 08/16/24 Range/Units 06:53 WBC 8.83 (4.8-10.8) K/ul RBC 4.17 L (4.70-6.10) M/uL Hgb 11.5 L (14.0-18.0) g/dl Hct 36.0 L (42.0-52.0) % Plt Count 214 (130-400) K/uL Comprehensive Metabolic Panel 08/16/24 Range/Units 06:53 Sodium 139 (136-145) mmol/L Potassium 4.2 (3.5-5.1) mmol/L Chloride 107 (98-107) mmol/L Carbon Dioxide 26 (21-32) mmol/L BUN 13 (6-23) mg/dl Creatinine 1.38 (0.6-1.4) mg/dl Glucose 96 (70-99(Fasting)) mg/dl Calcium 8.8 (8.6-10.3) mg/dl Intake and Output 08/15/24 08/16/24 08/16/24 22:59 06:59 14:59 Intake Total 96.25 / 1701.25 630 / 1701.25 100 / 100 Balance 96.25 / 1701.25 630 / 1701.25 100 / 100 Intake: IV 96.25 / 1361.25 630 / 1361.25 100 / 100 Piperacillin/Tazobactam 4.5 gm 96.25 / 196.25 100 / 196.25 100 / 100 In 100 ml @ 25 mls/hr IV Q8H [facility] Rx#:[id number] Vancomycin HCl 1,500 mg In 530 / 530 Sodium Chloride 0.9% 500 ml @ 200 mls/hr IV Q24H [facility] Rx#: [id number] Other: # Unmeasured Voids 2 2 Weight 83.4 kg Weight Measurement Method Built in [facility] Diagnostic Findings Telemetry reviewed: Normal sinus rhythm/sinus tachycardia with heart rates in the 70s to 100s. After I reviewed telemetry, I was notified by nursing staff that patient had a possible run of nonsustained VT 11:30 AM. Echocardiogram report reviewed dated 08/15/2024 Normal LVEF at 50 to 54% No regional wall motion abnormalities Mild concentric LVH. Mild AI. Evidence of prior mitral valve repair without significant mitral regurgitation and no mitral stenosis. Mild aortic root dilatation at 3.8 cm. Medications Administered Current Inpatient Medications Acetaminophen (Acetaminophen 325 Mg Tab) 650 mg PO Q4H PRN PRN Reason: Pain or Fever Stop: 09/13/24 20:04 Last Admin: 08/15/24 20:37 Dose: 650 mg Aspirin (Aspirin 81 Mg Ectab) 81 mg PO DAILY [facility] Stop: 09/14/24 08:59 Last Admin: 08/16/24 09:20 Dose: 81 mg Duloxetine HCl (Duloxetine Hcl 30 Mg Cap) 30 mg PO HS [facility] Stop: 09/15/24 20:59 Enoxaparin Sodium (Enoxaparin Inj 40 Mg/0.4 Ml Syr) 40 mg SQ QAM [facility] Stop: 09/14/24 08:59 Last Admin: 08/16/24 09:22 Dose: Not Given Magnesium Sulfate/Dextrose (Magnesium Sulfate / D5w) 1 gm in 100 mls @ 50 mls/hr IV Q2H [facility] Stop: 08/16/24 16:14 Lorazepam (Lorazepam 0.5 Mg Tab) 0.5 mg PO TID PRN PRN Reason: Anxiety Stop: 09/13/24 18:39 Last Admin: 08/15/24 08:42 Dose: 0.5 mg Metoprolol Succinate (Metoprolol Succ 25mg Ext Rel Tab) 25 mg PO DAILY [facility] Stop: 09/14/24 08:59 Last Admin: 08/16/24 09:20 Dose: 25 mg Ondansetron HCl (Ondansetron Inj 2 Mg/Ml 2 Ml Vial) 4 mg IV Q6H PRN PRN Reason: Nausea Stop: 09/13/24 20:04 Pantoprazole Sodium (Pantoprazole 40 Mg Tab) 40 mg PO QAM [facility] Stop: 09/14/24 08:59 Last Admin: 08/16/24 09:20 Dose: 40 mg Polyethylene Glycol (Polyethylene (Miralax) 17 Gm Pack) 17 gm PO DAILY PRN PRN Reason: Constipation Stop: 09/13/24 20:04 Sertraline HCl (Sertraline Hcl 50 Mg Tablet) 25 mg PO DAILY [facility] Stop: 09/14/24 08:59 Last Admin: 08/16/24 09:20 Dose: 25 mg Vitamin D (Cholecalciferol 10 Mcg (400 Units) Tab) 10 mcg PO QAM [facility] Stop: 09/15/24 08:59 Last Admin: 08/16/24 09:20 Dose: 10 mcg (2) Fatigue Fatigue type: unspecified Qualified Code(s): R53.83 - Other fatigue (3) HTN (hypertension) Hypertension type: primary hypertension Qualified Code(s): I10 - Essential (primary) hypertension
[2024-08-16] MEDS: MAGNESIUM SULFATE / D5W 1 GM/100 ML BAG IV SCH (12:54)
--- NOTE | 2024-08-16 21:14 | Communication Note ---
Date of Service: August 16, 2024
[2024-08-17 05:51] LABS: Basophils # (auto) 0.07 K/uL (0.00-0.20); Basophils % (auto) 0.6 %; Eosinophils # (auto) 0.82 K/uL (0.00-0.50); Eosinophils % (auto) 7.6 %; Hematocrit (blood only) 35.2 % (42.0-52.0); Hemoglobin 11.5 g/dl (14.0-18.0); Immature Granulocytes # (auto) 0.03 K/uL (0.01-0.20); Immature Granulocytes % (auto) 0.3 %; Lymphocytes # (auto) 1.67 K/uL (1.20-3.40); Lymphocytes % (auto) 15.4 %; Mean Corpuscular Hemoglobin 27.8 pg (25.0-34.0); Mean Corpuscular Hgb Conc 32.7 g/dL (32.0-36.0); Mean Corpuscular Volume 85.2 fL (80.0-100.0); Mean Platelet Volume 9.4 fL (9.4-12.4); Monocytes % (auto) 8.3 %; Neutrophils # (auto) 7.36 K/uL (1.40-6.50); Neutrophils % (auto) 67.8 %; Platelet Count 220 K/uL (130-400); RDW Coefficient of Variation 12.4 % (11.5-14.5); RDW Standard Deviation 38.2 fL (36.4-46.3); Red Blood Count 4.13 M/uL (4.70-6.10); White Blood Count 10.85 K/ul (4.8-10.8)
[2024-08-17 06:07] LABS: Calcium 8.8 mg/dl (8.6-10.3); Creatinine Clr Calc Pharmacy 57.1 ml/min; Phosphorus 3.9 mg/dl (2.5-4.9)
[2024-08-17] MEDS: DULoxetine HCL 30 MG CAP PO SCH (07:30)
--- NOTE | 2024-08-17 09:27 | Gastroenterology Progress Note ---
<Statement entered by Orville Marquis MD - 08/17/24 13:58> ATTENDING ADDENDUM The patient was discharged prior to me being able to see the patient. The case however was discussed with the GI PA and I agree with his assessment and plan as outlined above. Date of Service August 17, 2024 Assessment & Plan (1) Abnormal stool color: Plan Patient has not had any further episodes of green stools. Likely this was related to something dietary in nature. he offers no GI concerns currently. He is planned to have an EGD and Colonoscopy done as an outpatient with the [facility] GI team in the next two weeks. I advised that he keep these as scheduled and follow with them afterwards. Admission and Anticipated Discharge Date Admission Date: August 14, 2024 Subjective Patient has not had further green stools. stools are now more regular. He tells me that he was told he will be going home today. the GI ROS were unremarkable. Review of Systems Review of Systems: All systems reviewed & are unremarkable except as noted in HPI & below Physical Exam Constitutional: WD/WN, vitals as above Respiratory: normal respiratory effort, lungs clear to auscultation Cardiovascular: Rate/Rhythm: regular rate and regular rhythm Gastrointestinal (Abdomen): normal bowel sounds, soft, nontender, no hepatosplenomegaly Psychiatric: Orientation: alert and oriented x 3 Affect: euthymic affect Results & Data Results & Data Vital Signs (Past 12 Hours) Vital Signs Temp Pulse Pulse Resp BP Pulse Ox O2 Del Method 08/17/24 08:02 97.2 F L 74 19 130/89 94 Room Air 08/17/24 07:39 68 08/17/24 03:24 97.5 F L 80 16 130/77 94 Room Air 08/16/24 23:43 98.1 F 74 18 145/91 H 94 Room Air 08/16/24 23:23 68 Coding Level of Care Code 71986 SUB INP/OBS CARE 03/21MIN Diagnoses Abnormal stool color R19.5
--- NOTE | 2024-08-17 09:40 | Cardiology Progress Note ---
Date of Service August 17, 2024 Assessment & Plan (1) History of mitral valve repair: (2) Fatigue: (3) HTN (hypertension): (4) Abnormal stool color: Plan 08/15/24: Patient is a 74-year-old male with recent mitral valve player in June 2024 at [facility], admitted with concerns regarding profound fatigue/weakness, And concerns for diarrhea with discolored stool. He was started on empiric antibiotics due to possible infiltrate on right lower lung vs small pleural effusion and area of scabbing on his right lateral chest incision. No evidence of acute infectious process per review of imaging and incision area. Blood cultures drawn this morning given recent cardiac surgery (drawn after antibiotics were initiated) Echo demonstrating normal LVEF with normal functioning mitral valve s/p repair. Continue metoprolol and ASA. He has no symptoms of SOB/orthopnea/cough. No indication of IV lasix for small pleural effusion. Diarrhea/Green stools -stool studies pending -C.Diff negative -patient was to have egd/colonoscopy in August -weight loss also noted -consider GI evaluation. At this time, his symptoms are likely non cardiac and not related to recent MVR in June 2024. He reports his symptoms of fatigue/weakness have been present for many years. He was hoping it would improve post mitral valve surgery. However over the last few days, his symptoms worsened with GI complaints. 08/16/24: Patient ambulating in room this morning without acute issue. await GI evaluation. Ongoing green stool reported. He had one spell of "weakness" this morning but denies chest pain, SOB, dizziness, palpitations. No arrhythmias on monitor at this time. Nursing notified me around noon that patient had possible short run of non sustained Vt (wide complex tachycardia around 11:37). Will go back and review. No symptoms reported. Magnesium low this morning - 2 grams ordered now Continue metoprolol 25 mg daily. hesitant to increase dose due to ongoing complaints of fatigue. Echo yesterday was unremarkable. Recommend GI evaluation given change in bowel movements. Blood cultures are pending Continue antibiotics for now. No evidence of vegetation on valve. 08/17/24: yesterday morning patient had 6 beat run of wide-complex tachycardia (nonsustained ventricular tachycardia) observed 08/16/2024 at 11:48 AM. Otherwise sinus rhythm in the 60s. No recurrent events overnight. He was treated with 2 grams IV mag for magnesium level of 1.8. Metoprolol 25 mg daily continued Magnesium level pending this morning He is status post minimally invasive robotic assisted mitral valve repair -At present, cardiac workup reassuring. With 2 recent transthoracic echocardiograms, mild elevation in ESR, CRP, felt to be nonspecific. Clinical suspicion for SBE is low. Patient with history of angiographically normal coronary arteries, low normal LVEF. At this time, no further cardiac testing warranted. Continue home medications. Patient wishes to establish with [facility] locally here at [facility] and will arrange f/u. He also has f/u with his CT surgeon later this month. will sign off. Case discussed with Dr. Dobson I spent a total of 30 minutes on the date of service in preparation, delivery, and documentation of the care provided to this patient, excluding any time spent in the performance of separately billed services. Alexandrea Bernal PA-C Department of Cardiology, [facility] This chart was completed in part utilizing Speech Voice Recognition Software. Grammatical errors, random word insertions, pronoun errors, and incomplete sentences are an occasional consequence of this system due to software limitations, ambient noise, and hardware issues. Any formal questions or concerns about the content, text, or information contained within the body of this dictation should be directly addressed to the provider for clarification. Admission and Anticipated Discharge Date Admission Date: August 14, 2024 Supervising Physician Co-Signing Physician Notes Patient discharged prior to being evaluated by the undersigned. I have reviewed the advance practitioner's documentation, and I agree with, and take responsibility for the plan of care. Cj Lee DO, [facility] Subjective Patient resting at side of bed. Reports he has "no complaints or concerns with his heart". Denies chest pain, SOB, palpitations. No dizziness or lightheadedness. No recurrent wide complex tachycardia/VT since yesterday morning. Review of Systems Review of Systems: All systems reviewed & are unremarkable except as noted in HPI & below Physical Exam Constitutional: WD/WN, vitals as above average body habitus; no acute distress Neck: normal visual inspection Respiratory: normal respiratory effort; no cough and not tachypneic Auscultation: no crackles, no rales and no rhonchi Cardiovascular: Rate/Rhythm: regular rate and regular rhythm Heart Sounds: no murmur Vessels: no JVD Extremities: no edema Gastrointestinal (Abdomen): normal bowel sounds, soft, nontender, no hepatosplenomegaly Neurologic: PERRL, EOMI, accommodation nl, no face palsy, no dysarthria Results & Data Vital Signs (Past 12 Hours) Vital Signs Temp Pulse Pulse Resp BP Pulse Ox O2 Del Method 08/17/24 08:02 36.2 C L 74 19 130/89 94 Room Air 08/17/24 07:39 68 08/17/24 03:24 36.4 C L 80 16 130/77 94 Room Air 08/16/24 23:43 36.7 C 74 18 145/91 H 94 Room Air 08/16/24 23:23 68 Laboratory Results CBC 08/17/24 Range/Units 05:31 WBC 10.85 H (4.8-10.8) K/ul RBC 4.13 L (4.70-6.10) M/uL Hgb 11.5 L (14.0-18.0) g/dl Hct 35.2 L (42.0-52.0) % Plt Count 220 (130-400) K/uL Neut # (Auto) 7.36 H (1.40-6.50) K/uL Lymph # (Auto) 1.67 (1.20-3.40) K/uL [place] # (Auto) 0.90 H (0.11-0.59) K/uL Eos # (Auto) 0.82 H (0.00-0.50) K/uL Baso # (Auto) 0.07 (0.00-0.20) K/uL Comprehensive Metabolic Panel 08/17/24 Range/Units 05:31 Sodium 137 (136-145) mmol/L Potassium 4.0 (3.5-5.1) mmol/L Chloride 106 (98-107) mmol/L Carbon Dioxide 23 (21-32) mmol/L BUN 12 (6-23) mg/dl Creatinine 1.34 (0.6-1.4) mg/dl Glucose 90 (70-99(Fasting)) mg/dl Calcium 8.8 (8.6-10.3) mg/dl Intake and Output 08/16/24 08/17/24 08/17/24 22:59 06:59 14:59 Intake Total 100 / 930 Balance 100 / 930 Intake: IV 100 / 300 Magnesium Sulfate / D5w 1 gm In 100 / 200 100 ml @ 50 mls/hr IV Q2H [facility] Rx#:[id number] Other: # Unmeasured Voids 2 1 Weight 83.5 kg Weight Measurement Method Built in [facility] Diagnostic Findings Telemetry reviewed: NSR with rare PVC. No recurrent wide complex tachycardia/VT since yesterday morning. Medications Administered Current Inpatient Medications Acetaminophen (Acetaminophen 325 Mg Tab) 650 mg PO Q4H PRN PRN Reason: Pain or Fever Stop: 09/13/24 20:04 Last Admin: 08/15/24 20:37 Dose: 650 mg Aspirin (Aspirin 81 Mg Ectab) 81 mg PO DAILY [facility] Stop: 09/14/24 08:59 Last Admin: 08/17/24 08:36 Dose: 81 mg Duloxetine HCl (Duloxetine Hcl 30 Mg Cap) 30 mg PO HS [facility] Stop: 09/15/24 20:59 Last Admin: 08/17/24 07:30 Dose: Not Given Enoxaparin Sodium (Enoxaparin Inj 40 Mg/0.4 Ml Syr) 40 mg SQ QAM [facility] Stop: 09/14/24 08:59 Last Admin: 08/17/24 08:36 Dose: 40 mg Lorazepam (Lorazepam 0.5 Mg Tab) 0.5 mg PO TID PRN PRN Reason: Anxiety Stop: 09/13/24 18:39 Last Admin: 08/17/24 08:35 Dose: 0.5 mg Metoprolol Succinate (Metoprolol Succ 25mg Ext Rel Tab) 25 mg PO DAILY [facility] Stop: 09/14/24 08:59 Last Admin: 08/17/24 08:37 Dose: 25 mg Ondansetron HCl (Ondansetron Inj 2 Mg/Ml 2 Ml Vial) 4 mg IV Q6H PRN PRN Reason: Nausea Stop: 09/13/24 20:04 Pantoprazole Sodium (Pantoprazole 40 Mg Tab) 40 mg PO QAM [facility] Stop: 09/14/24 08:59 Last Admin: 08/17/24 08:37 Dose: 40 mg Polyethylene Glycol (Polyethylene (Miralax) 17 Gm Pack) 17 gm PO DAILY PRN PRN Reason: Constipation Stop: 09/13/24 20:04 Sertraline HCl (Sertraline Hcl 50 Mg Tablet) 25 mg PO DAILY [facility] Stop: 09/14/24 08:59 Last Admin: 08/17/24 08:37 Dose: 25 mg Vitamin D (Cholecalciferol 10 Mcg (400 Units) Tab) 10 mcg PO QAM [facility] Stop: 09/15/24 08:59 Last Admin: 08/17/24 08:37 Dose: 10 mcg (2) Fatigue Fatigue type: unspecified Qualified Code(s): R53.83 - Other fatigue (3) HTN (hypertension) Hypertension type: primary hypertension Qualified Code(s): I10 - Essential (primary) hypertension
--- NOTE | 2024-08-17 11:31 | Discharge Summary ---
Discharge Summary Date of Service August 17, 2024 Principal Dx & Hospital Course #1 = Principal Diagnosis (1) Fatigue: (2) Generalized weakness: (3) History of mitral valve repair: (4) Pleural effusion, right: (5) Abnormal stool color: Plan Patient is a 74-year-old male with past medical history significant for enlarged LA, symptomatic PVCs, HTN, IBS, GERD, CKD stage IIIa [baseline Cr 1.2-1.4] and other problems listed below who presented to the ED for evaluation on 08/14/24 due to worsening fatigue and weakness over the past 2 weeks. Fatigue with significant degree of impact on ADLs. Also has been experiencing ambulatory dizziness. Of note, patient recently underwent mitral valve repair at [facility] on 07/07/24 due to history of severe nonrheumatic MVR. Postoperative course c/b development of R-sided pleural effusion which required chest tube placement. He is scheduled to follow-up at [facility] on 08/20/24. TTE, 08/11/24: LVEF = 50-54%, mildly dilated RV, mild AVR, mild TR, mild enlarged proximal ascending thoracic aorta. #Generalized weakness, profound fatigue #Recent robotic entry MVR on 07/07/24 @ [facility] 2/2 severe nonrheumatic MVR Unintentional 10lb weight loss over past month Work up: Lyme screen negative, Procal negative; recently had Rhinovirus, Resp BioFire negativem, UA negative, TSH WNL, ESR 56 (H), CRP 1.74 (H), AM cortisol 18.58, LDH WNL, CK WNL Placed on empiric vanc/zosyn initially but abx discontinued once negative blood cultures resulted Cardiology consulted - clinical suspicion for SBE is low. Okay to follow up with CT surgery as scheduled post-procedure Suspect weakness is multifactorial - inflammatory process 2/2 ? GI source (has colonoscopy f/u in August, no acute intervention needed, stool PCR and CT abd/pelvis negative) vs auto-immune process - work up ordered, pending Also likely underlying depression/WESLY - recent started on Sertraline and will increase to 50mg daily on discharge. Started Buspar 5mg BID PRN for anxiety and discussed limiting ativan for once daily breakthrough anxiety Consideration of chronic fatigue syndrome as well - recommend PCP coordination with PM&R as needed in outpatient if not significant improved with mood regimen as above #Mild R pleural effusion noted on chest CT w/o evidence of hypoxia No resp complaints, monitor #NSVT 6 beats on 08/16 around noontime, Mg 1.8 at that time, repleted No recurrent events overnight on tele Seen by cardiology, will coordinate outpatient follow up at [facility] #Abnormal stool --> green stool seems to have resolved during admission #History of small bowel bacterial overgrowth C-scope 11/2019: one 5mm polyp 50cm proximal to the anus (removed w/ cold snare), otherwise unremarkable Stool PCR negative Completed Augmentin course on 08/02 for tx of SIBO CTAP grossly unremarkable C. diff studies negative GI consulted --> recommending outpt f/u Scheduled for EGD + RUTHERFORD and colonscopy on 08/27/24 #CKD stage IIIa Baseline Cr 1.2-1.4 Renal fx remains stable Continue to monitor Avoid nephrotoxic agents as able #Incidental CTAP finding Bilateral renal simple cortical cysts noted on CTAP Follow up as outpatient recommended #History of symptomatic PACs #HTN Continue Toprol-XL #GERD Continue PPI Notes For Next Care Provider Gen weakness 2/2 ? GI source vs autoimmune (work up pending), likely WESLY/depression component as well Recent MV repair, low suspicion for SBE, routine f/u with CT surgeon recommended Medication Changes From Visit Increased sertraline to 50mg, Buspar 5mg BID PRN, decreased Ativan to once daily PRN breakthrough anxity Admission HPI Per Admitting Provider Mr. Mantilla is a 74 year old male that presents to the ED today with Vague symptoms of worsening fatigue and weakness that originally started a few years ago but has been more persistent over the last 2 weeks. He states that his exhaustion has been interfering with his daily activities. He reports that he wakes up in the morning on his own but has difficulty with showering due to his generalized exhaustion. In recent days he has had some dizziness with ambulating. He most recently underwent a mitral valve repair at [facility] on 07/07/2024 and has a follow-up there on 08/20. Today there was an isolated incidence of having a bright o[place] green bowel movement. He denies any ingestion of artificial dyes, leafy vegetable ingestion. He reports that the only unusual dietary change was that yesterday he did eat an unusual hard cheese. He most recently was diagnosed with small bowel bacterial overgrowth for which he did complete a course of Augmentin on 08/12. He does not have a history of C. difficile and he does his gallbladder. He denies any sick contact or recent travel. He is retired and has worked at a [employer] as a [place]. He denies tobacco, alcohol or recreational drug use. His last colonoscopy was in 2019 with identified polyps. He does have a colonoscopy/EGD and RUTHERFORD pH test scheduled for August 27. No Crohn's or celiac disease identified to date. In the ED a chest x-ray was obtained indicating pleural effusions with additional consolidation today versus comparison to 07/28. Chest CT does indicate moderate pleural effusions. He is aware of his pleural effusion but does not contribute to any shortness of breath or hypoxia. Most recent echocardiogram was 08/11/2024; EF 50 to 54%, RV mild dilation, LV wall motion normal. Labs in the ED Identified mild leukocytosis WBC 11.3; most recent outpatient blood work indicated WBC was 13.07 on 08/04 however patient identified that he did recently have rhinovirus a few weeks ago. Electrolytes unremarkable, negative troponin, procalcitonin negative, Lyme screening negative, UA normal,TSH normal 4.3 no transaminitis. Creatinine 1.41; baseline 1.3. Most recently an ESR was checked as an outpatient mildly elevated at 38 on 08/04/2024. He has a PMH that includes: HTN, anxiety and depression, GERD, small bowel bacterial overgrowth, mitral valve regurgitation. On examination, patient is AO x 4 and in no apparent distress laying in his hospital bed. Mitral valve repair was performed via robot and on the right lateral insertion site there are signs of erythema and a thick dermal scab which could indicate infection. No adventitious lung sounds identified. No reproducible abdominal pain. Patient does have active x 4 bowel sounds. No CVA tenderness or spinal point tenderness. No peripheral joint tenderness identified. He denies chest pain, shortness of breath, nausea, vomiting, abdominal pain or tenderness. Denies tinnitus, visual or changes, joint tenderness, urinary changes, recent falls or trauma. No focal or neuro deficits noted. Patient will be admitted for further evaluation and management of his chronic fatigue and weakness. Given his recent MVR and dizziness will involve Cardiology, check ortho BPs, given recent pleural effusion and consolidation, will obtain Chest CT and start Rocephin + Doxy with probiotic. Given recent weight loss and stool changes, will obtain CTAP. To address weakness, will order anemia panel, PT/OT, A1C and monitor. Please see A/P for further details. Discharge Exam Gen: WD/WN, NAD, sitting upright in bed, A&Ox3 HEENT: Normocephalic, atraumatic, conjunctivae moist, sclerae anicteric, mucous membranes moist Lung: Clear to Auscultation bilaterally, no wheezes/rales/rhonchi Chest: healing incisions Heart: Regular rate, regular rhythm Abdomen: Soft, NT, ND +BS x 4 Extremities: no edema Skin: Warm, no rash Updated Medication List Medication Instructions Recorded Confirmed Type omeprazole 20 mg capsule,delayed 40 mg PO QAM 03/20/24 08/14/24 History release aspirin 81 mg tablet,delayed 81 mg PO DAILY 07/28/24 08/14/24 History release metoprolol succinate 25 mg 25 mg PO DAILY 07/28/24 08/14/24 History tablet,extended release 24 hr buspirone 5 mg tablet 5 mg PO BID PRN anxiety #30 tabs 08/17/24 Rx lorazepam 0.5 mg tablet 0.5 mg PO DAILY PRN Anxiety #0 tabs 08/17/24 08/14/24 Rx sertraline 25 mg tablet 50 mg (2 x 25 mg) PO DAILY #0 tabs 08/17/24 08/14/24 Rx Hospital Stay Data Consultations 08/14/24 16:46 ED Decision to Admit Stat 08/14/24 17:44 Consult Cardiology Routine 08/15/24 12:47 Consult Gastroenterology Routine Diagnostic Imagining Performed 08/14/24 17:44 CT abd pelvis wo con Routine CT chest diagnostic wo con Routine Pending Results Patient Have Any Pending Studies at Discharge: Yes Discharge Instructions Given to Patient (Per Discharging Provider) MEDICATION CHANGES: Sertraline was increased to 50mg daily. Buspirone 5mg was started up to twice a day as needed for anxiety. Lorazepam frequency was decreased to once daily as needed for breakthrough anxie ty. PENDING TEST RESULTS: Autoimmune panel ordered and pending based on elevated inflammatory markers (ESR/CRP) - please follow up with PCP once labs result RECOMMENDATIONS FOR FOLLOW-UP: Follow up with PCP as scheduled for follow up on autoimmune panel as above as well as instruction on titrating sertraline. Please follow up with cardiothoracic surgeon later this month as scheduled. [facility] cardiology group with help you to get established with a local provider at [facility]. Please follow up for outpatient colonoscopy in August. OTHER INSTRUCTIONS: Seek medical attention if you have: * temperature above 101 * chest pain or trouble breathing * abdominal pain, nausea, vomiting * diarrhea, dark stools or bloody stools * any unanswered questions or concerns Call 911 if symptoms are severe. Please take good care of yourself. Call if you have any questions or problems. You can reach a [facility] hospitalist on duty at [facility] 24 hours a day by calling [phone]. Total Time Total Time Spent Total Time Spent (In Minutes): 50 Supervising Physician Co-Signing Physician Notes Patient seen and examined at bedside. Patient feeling slightly better today. Discussed plan of care with patient in room and over phone. On exam, patient walking around room, comfortable, RRR, clear to auscultation. Suspect 2 different processes leading to acute on chronic fatigue and weakness. A metabolic process appears to be at work given elevated inflammatory markers, perhaps a GI process (scopes planned outpatient) or underlying autoimmune process/vasculitis (workup sent). A central process of underlying WESLY/depression is also likely. Will discharge with appropriate anti-anxiety medication, try to limit benzodiazepene use given liklihood it will make anxiety worse with chronic use, and follow up with PCP and GI for further workup of chronic metabolic disease. I have seen and discussed the case with the collaborating advanced practitioner. I agree with the above H&P. I have reviewed and confirmed the patients medical history, the findings on physical examination, and the patients diagnosis and treatment plan with Malaika Trent PA-C and agree with the information documented. I spent a total of 40 minutes coordinating, documenting, and providing care for this patient excluding time spent in the performance of separately billed services. All of the aforementioned completed outside of collaborating with the assigned advanced practitioner for a full treatment plan. I have reviewed the advanced practitioner's documentation, and I agree with, and take responsibility for the plan of care
[2024-08-17 11:44] VITALS: RESP 17; TEMP 97.9; O2SAT 97
[2024-08-17 12:22] VITALS: BP 139/88; PULSE 80
[2024-08-18 13:48] LABS: Anti Nuclear Antibody Screen NEGATIVE (NEGATIVE)
[2024-08-20 00:37] LABS: Babesia microti DNA Not Detected (Not Detected)
[2024-08-24 05:08] LABS: ANCA Screen Negative (Negative); Albumin 3.4 g/dL (3.8-4.8); Alpha 1 Globulin 0.4 g/dL (0.2-0.3); Alpha 2 Globulin 0.8 g/dL (0.5-0.9); Beta-1-Globulin 0.4 g/dL (0.4-0.6); Beta-2-Globulin 0.4 g/dL (0.2-0.5); Gamma Globulin 1.2 g/dL (0.8-1.7); Monoclonal Protein Band 1 DNR g/dL (NONE DETECTED); Monoclonal Protein Band 2 DNR g/dL (NONE DETECTED); Monoclonal Protein Band 3 DNR g/dL (NONE DETECTED); Rheumatoid Factor <10 IU/mL (<14); Total Protein 6.5 g/dL (6.1-8.1)
== END 2024-08-17 13:01 | disposition home or self-care (01) | DRG 948 ==
LOC: ED 09:41 → SUATTDRO 16:57 → 2E 16:57 → INTOOBSV 16:57 → 2E 19:31